=== PATIENT | male | born 1945 | race Caucasian/White ===

== ENCOUNTER 2021-03-28 14:21 | Outpatient (CLI) | payer MEDICARE, OTHER, SELFPAY ==
[2021-03-28 15:03] LABS: Alanine Aminotransferase 29 U/L (4-50); Albumin Level 4.4 g/dL (3.5-5.1); Alkaline Phosphatase 71 U/L (38-126); Anion Gap 8 mmol/L (8-16); Aspartate Amino Transferase 29 U/L (17-59); Bilirubin,Total 0.3 mg/dL (0.2-1.3); Blood Urea Nitrogen 30 mg/dL (9-20); Calcium 9.8 mg/dL (8.4-10.2); Carbon Dioxide 22 mmol/L (22-30); Chloride 109 mmol/L (98-107); Estimated Glomerular Filt Rate 37; Glucose 101 mg/dL (75-110); Potassium 4.3 mmol/L (3.4-5.0); Sodium 139 mmol/L (137-145)
[2021-03-28 15:05] LABS: Hemoglobin A1C 5.2 % (<5.7)
== END 2021-03-28 14:22 | disposition home or self-care (01) ==
LOC: ANHLAB 14:25
PROVIDERS: PCP Family Medicine; Visit Provider Physician Assistant
DX: I12.9 Hypertensive chronic kidney disease with stage 1 through stage 4 chronic kidney disease, or unspecified chronic kidney disease (principal); R73.01 Impaired fasting glucose
CPT/HCPCS: 36415; 80053; 83036

== ENCOUNTER 2021-05-05 11:11 | Outpatient (CLI) | payer MEDICARE, OTHER, SELFPAY ==
[2021-05-05 12:17] LABS: Creatinine Urine 36.1 mg/dL; Total Protein Urine Random 111 mg/dL; Ur Ttl Prot Creatinine Ratio 3.07 mg/mg (0-0.20)
[2021-05-05 14:04] LABS: Albumin Level 4.5 g/dL (3.5-5.1); Anion Gap 13 mmol/L (8-16); Blood Urea Nitrogen 31 mg/dL (9-20); Carbon Dioxide 17 mmol/L (22-30); Chloride 108 mmol/L (98-107); Estimated Glomerular Filt Rate 37; Glucose 114 mg/dL (75-110); Potassium 4.6 mmol/L (3.4-5.0); Sodium 138 mmol/L (137-145)
== END 2021-05-05 11:12 | disposition home or self-care (01) ==
PROVIDERS: PCP Family Medicine; Visit Provider Internal Medicine Nephrology
DX: N18.31 Chronic kidney disease, stage 3a (principal); I12.9 Hypertensive chronic kidney disease with stage 1 through stage 4 chronic kidney disease, or unspecified chronic kidney disease
CPT/HCPCS: 36415; 80069; 82570; 84156

== ENCOUNTER 2021-07-18 14:00 | Inpatient (IN) | payer MEDICARE, OTHER, SELFPAY ==
[2021-07-18] VITALS (7 sets, daily range): BP systolic 150–178; BP diastolic 93–111; PULSE 69–92; RESP 18–22; TEMP 36.1–36.6; O2SAT 95–98
--- NOTE | ~2021-07-18 | CT_ITS ---
EXAMINATION: CT lumbar spine wo con DATE: 07/18/2021 15:04 INDICATION: Lower extremity weakness. TECHNIQUE: Computed tomography (CT) of the lumbar spine was performed without intravenous contrast. A utomated exposure control and iterative reconstruction technique were employed. The dose-length produ ct was 1251.78 mGy-cm. COMPARISON: CT abdomen and pelvis 08/22/2013 FINDINGS: There are chronic bilateral L5 pars defects. There is 6 mm anterolisthesis of L5 on S1. The re are Schmorl's nodes at most levels. There is mild chronic anterior wedging of L1-L1 vertebral bodi es. There is moderately decreased disc height at L3-L4 and severely decreased disc height at L5-S1 wi th endplate remodeling. There are chronic masses in the adrenal glands measuring up to 1.9 cm on the right measuring low-attenuation, consistent with adenomas. There is at least mild atrophy of left kid yash. There is a bladder diverticulum. The following disc levels are specifically discussed: L1-L2: The disc does not extend beyond the endplate margin. There is severe bilateral facet joint ost eoarthritis. There is no neural foraminal stenosis. There is no central canal stenosis. L2-L3: The disc is bulging. There is severe right and moderate left facet joint osteoarthritis. There is mild bilateral neural foraminal stenosis. There is mild central canal stenosis. L3-L4: The disc is bulging. There is moderate bilateral facet joint osteoarthritis. There is mild geri ateral neural foraminal stenosis. There is mild central canal stenosis. L4-L5: The disc is bulging. There is severe bilateral facet joint osteoarthritis. There is mild bilat eral neural foraminal stenosis. There is mild central canal stenosis. L5-S1: The disc is bulging. There is severe bilateral facet joint osteoarthritis. There is mild bilat eral neural foraminal stenosis. There is no central canal stenosis. IMPRESSION: 1. Severe lumbar spondylosis. 2. Chronic bilateral L5 pars defects with grade 1 anterolisthesis of L5 on S1. Reviewed, dictated and finalized at location A.
--- NOTE | ~2021-07-18 | XR_ITS ---
EXAMINATION: XR chest 1V portable DATE: 07/18/2021 14:32 INDICATION: Weakness. TECHNIQUE: A single frontal view of the chest was obtained. COMPARISON: Chest single view 07/24/2019, CT abdomen and pelvis 08/22/2013 FINDINGS: The chest demonstrates clear lungs without pneumonia, pleural effusion, or pneumothorax. Th e heart size is normal. IMPRESSION: 1. No acute cardiopulmonary disease. Reviewed, dictated and finalized at location A.
--- NOTE | ~2021-07-18 | US_ITS ---
EXAMINATION: US carotid duplex BI DATE: 07/19/2021 14:03 INDICATION: Syncope TECHNIQUE: Grayscale, color Doppler, and pulsed Doppler images of the cervical carotid arteries were obtained. The degree of vessel stenosis is placed in one of the following categories: normal, <50%, 5 0-69%, >=70% but less than near-occlusion, near-occlusion, or total occlusion. Note that percent sten osis relative to normal distal artery lumen diameter is indirectly measured from velocity measurement s as described by Eduardo, et al. Radiology 2003; 229:340-346. COMPARISON: None. FINDINGS: RIGHT: The right common carotid artery (CCA) peak systolic velocity (PSV) is 76 cm/s. The right internal car otid artery (ICA) PSV is 87 cm/s. The right ICA end-diastolic velocity (EDV) is 22 cm/s. The right IC A/CCA PSV ratio is 1.1. Grayscale and color Doppler images yield an estimate of <50% diameter reducti on from plaque in the ICA. The external carotid artery (ECA) PSV is 76 cm/s. There is antegrade flow in the right vertebral artery. LEFT: The left CCA PSV is 94 cm/s. The left ICA PSV is 80 cm/s. The left ICA EDV is 22 cm/s. The left ICA/C CA PSV ratio is 0.8. Grayscale and color Doppler images yield an estimate of <50% diameter reduction from plaque in the ICA. The ECA PSV is 93 cm/s. There is antegrade flow in the left vertebral artery. IMPRESSION: 1. <50% stenosis in the right internal carotid artery. 2. <50% stenosis in the left internal carotid artery. Reviewed, dictated and finalized at location A.
--- NOTE | ~2021-07-18 | CT_ITS ---
EXAMINATION: CT brain wo con DATE: 07/18/2021 15:04 INDICATION: Lower extremity paresis. Balance issues. TECHNIQUE: Computed tomography (CT) of the head was performed without intravenous contrast. The mA wa s adjusted according to patient size. Iterative reconstruction technique was employed. Exam dose: 68 1.00 mGy-cm total exam DLP. COMPARISON: 07/24/2019 CT brain FINDINGS: Prominent bilateral vertebral artery calcification, basilar artery calcification and promin ent bilateral carotid siphon internal carotid artery calcifications. There is nonspecific diminished attenuation of the cerebral white matter, likely due to chronic small vessel ischemic change. Again noted is prominence of the ventricles, particularly at third and lateral ventricles, not signif icant change since 07/24/2019. Differential diagnosis includes normal pressure hydrocephalus (ataxia/ga it disturbance, dementia, urinary continence) versus central atrophy. There is prominence of the shahzad ical sulci consistent with cortical cerebral atrophy. There is moderate cerebellar atrophy as well. No intracranial mass lesion or hemorrhage or recent cerebrovascular accident is evident. No midline s hift or mass effect effect. No subdural or epidural hematoma. No fracture or bone destruction of the cranial vault. Included paranasal sinuses and mastoid air cell s are normally developed and aerated. IMPRESSION: Chronic prominent size of ventricles; differential diagnosis includes normal pressure hy drocephalus (which might explain the clinical complaint of balance issues) versus central atrophy Reviewed, dictated and finalized at Location A. Reviewed, dictated and finalized at location A. IMPRESSION: Chronic prominent size of ventricles; differential diagnosis inclu henrietta normal pressure hydrocephalus (which might explain the clinical complaint o f balance issues) versus central atrophy
--- NOTE | 2021-07-18 14:12 | ECG_ITS ---
Measurements Intervals [place] Rate: 80 P: 31 WV: 188 QRS: -39 QRSD: 99 T: 55 QT: 391 QTc: 451 Interpretive Statements SINUS RHYTHM FREQUENT VENTRICULAR PREMATURE COMPLEXES LEFT AXIS DEVIATION LOW QRS VOLTAGE IN PRECORDIAL LEADS INCOMPLETE RIGHT BUNDLE BRANCH BLOCK VOLTAGE CRITERIA FOR LVH POOR R WAVE PROGRESSION, ANTERIOR LEADS BORDERLINE ST-T WAVE ABNORMALITY- HIGH LATERAL LEADS BASELINE ARTIFACT- I, II, III, AVR, AVL, AVF ABNORMAL ECG Electronically Signed On 07-18-2021 14:27:44 CDT by Eduardo Andrea D.O.
--- NOTE | 2021-07-18 14:14 | PC.NURSE ---
pt reports having 3-4 beers today at approx 1200.
[2021-07-18 14:32] LABS: Basophils Percent Auto 0.4 % (0.2-1.2); Eosinophils Absolute Auto 0.1 K/mm3 (0-0.3); Eosinophils Percent Auto 1.2 % (0-4.4); Hematocrit 41.5 % (42.0-52.0); Hemoglobin 14.2 g/dL (14.0-18.0); Immature Granulocyte Absolute 0.16 K/mm3 (0.00-0.031); Immature Granulocyte Percent A 1.5 % (0-0.5); Lymphocytes Absolute Auto 0.88 K/mm3 (0.9-3.2); Lymphocytes Percent Auto 8.2 % (18.3-44.2); Mean Corpuscular HGB Conc 34.2 g/dl (32-36); Mean Corpuscular Hemoglobin 32.6 pg (26-34); Mean Corpuscular Volume 95.4 fl (80-100); Mean Platelet Volume 9.5 fl (7.4-10.4); Monocytes Absolute Auto 1.1 K/mm3 (0.1-0.6); Monocytes Percent Auto 9.8 % (2.6-8.5); Neutrophils Absolute Auto 8.5 K/mm3 (1.3-6.7); Neutrophils Percent Auto 78.9 % (45.5-73.1); Platelet Count Result 221 k/mm3 (150-375); Red Blood Count 4.35 M/mm3 (4.6-6.20); Red Cell Distribution Width 11.9 % (11.5-14.5); White Blood Count 10.7 K/mm3 (4.5-10.0)
[2021-07-18 14:39] LABS: Alanine Aminotransferase 30 U/L (4-50); Albumin Level 4.1 g/dL (3.5-5.1); Alkaline Phosphatase 74 U/L (38-126); Anion Gap 14 mmol/L (8-16); Aspartate Amino Transferase 29 U/L (17-59); Bilirubin,Total 0.2 mg/dL (0.2-1.3); Blood Urea Nitrogen 20 mg/dL (9-20); Calcium 8.9 mg/dL (8.4-10.2); Carbon Dioxide 18 mmol/L (22-30); Chloride 93 mmol/L (98-107); Estimated CRCL calculation 40 ml/min; Estimated Glomerular Filt Rate 37; Glucose 107 mg/dL (65-110); Sodium 125 mmol/L (137-145)
[2021-07-18 14:40] LABS: Ethanol 149 mg/dL (<10)
--- NOTE | 2021-07-18 14:49 | ED.WEAKNESS ---
HPI - Weakness General Chief complaint: Weakness Stated complaint: Unable to ambulate Time Seen by Provider: 07/18/21 14:32 Source: patient Mode of arrival: EMS Limitations: no limitations History of Present Illness HPI Narrative: This is a 76 year old male that presents to the ER for generalized weakness. Began this morning around 11:00AM. He went to have coffee with his friends. All the sudden he felt as if he was not able to walk. No injuries or trauma. Denies fever, chest pain, shortness of breath, abdominal pain, vomiting, dysuria, saddle anesthesia or bowel/bladder incontinence. Related Data Home Medications Medication Instructions Recorded Confirmed aspirin 81 mg tablet,delayed 81 mg PO DAILY 11/03/19 07/18/21 release Allergies Allergy/AdvReac Type Severity Reaction Status Date / Time celecoxib Allergy Severe TONGUE Verified 07/18/21 18:25 SWELLED amlodipine Allergy Unknown Edema Verified 07/18/21 18:25 Penicillins Allergy Unknown UNKNOWN Verified 07/18/21 18:25 Sulfa (Sulfonamide Allergy Unknown UNKNOWN Verified 07/18/21 18:25 Antibiotics) Review of Systems Review of Systems: CONSTITUTIONAL: Denies fever CARDIOVASCULAR: Denies chest pain RESPIRATORY: Denies dyspnea. GASTROINTESTINAL: Denies abdominal pain, nausea, vomiting GENITOURINARY: Denies dysuria MUSCULOSKELETAL: Denies back pain, joint pain, or myalgia. NEUROLOGIC: Reports weakness. Denies numbness All systems reviewed & are unremarkable except as noted in HPI and below PMFSH Past Medical History Medical History Cervical disc disease with myelopathy CKD (chronic kidney disease) Essential hypertension H/O adenomatous polyp of colon Hypertensive chronic kidney disease with stage 1 through stage 4 chronic kidney disease, or unspecified chronic kidney disease Iron deficiency anemia Neuropathy Prostate cancer Unsteady gait Wellness examination Family History Family History Father Carcinoma of colon Social History Social History (Updated 07/17/21 @ 08:52 by Kenzie Johnson) Years smoked: 5 Smoking status: Former smoker Tobacco type: cigarettes Second hand tobacco smoke exposure: Yes Smoking end date: 11/22/69 Alcohol intake: current Drinks per week: 15 Substance use: never Substance use type: does not use Gender identity (if verbalized by the patient): Male Sexual Orientation (if Verbalized by the Patient): Straight or Heterosexual Spiritual care concerns: Yes (recent loss of ) Exam Narrative: GENERAL: Well-appearing, well-nourished, and in no acute distress. HEAD: Normocephalic, atraumatic. EYES: PERRLA and EOMI. ENT: Nares clear, no rhinorrhea or epistaxis. Mucous membranes moist. Oropharynx without tonsillar hypertrophy exudate or other lesions. Bilateral TMs pearly ayon non-bulging NECK: Supple. No adenopathy or masses. CHEST: Clear to auscultation. No respiratory distress. No wheezes rales or rhonchi HEART: Regular rate and rhythm. No murmur heard. Normal peripheral pulses. ABDOMEN: Soft, nontender, nondistended, normal active bowel sounds. EXTREMITIES: Normal range of motion. Mild symmetric edema noted to the bilateral lower extremities. Strength equal in bilateral upper extremities (5/5). Strength equal in bilateral lower extremities (4/5) SKIN: Warm, dry, no rash. NEURO: No focal deficits. Alert and oriented x3. Cranial nerves II through XII grossly intact PSYCH: Normal mood and affect Course Consultations Consultation #1: Spoke with hospitalist about patient and work-up who accepts admission Date: 07/18/21 Vital Signs Vital signs: Vital Signs Temperature 97.9 F 07/18/21 14:09 Pulse Rate 81 07/18/21 14:09 Respiratory Rate 18 07/18/21 14:09 Pulse Oximetry 95 07/18/21 14:09 Temperature 97.8 F 07/18/21 17:49 Pulse Rate 69 07/18/21 17:49 Respiratory Rat
[2021-07-18] MEDS: SODIUM CHLORIDE 0.9% IV 1,000 ML 999 ML IV CONT (15:47)
[2021-07-18 15:54] LABS: Add Urine Microscopic? YES; Appearance Urine Clear (Clear); Bilirubin Urine Negative (Negative); Blood Urine 1+ (Negative); Color Urine Straw (Yellow); Glucose Urine UA Negative (Negative); Ketones Urine Negative (Negative); Leukocyte Esterase Ur Negative LEU/UL (Negative); Nitrate Urine Negative (Negative); Protein Urine 2+ mg/dL (Negative); RBC Urine 0-2 /hpf (0-2); Specific Grav Ur 1.006 (1.001-1.035); Urobilinogen Urine Negative mg/dL (<2.0); WBC Urine 0-3 /hpf
[2021-07-18 16:13] LABS: Amphetamine Screen Urine Negative (Negative); Barbiturate Screen Urine Negative (Negative); Benzodiazepines Screen Urine Negative (Negative); Cannabinoid Screen Urine Negative (Negative); Cocaine Screen Urine Negative (Negative); Methadone Screen Urine Negative (Negative); Opiate Screen Urine Negative (Negative); Phencyclidine Screen Urine Negative (Negative)
[2021-07-18 16:42] LABS: Partial Thromboplastin Time 24.4 SECONDS (22.3-36.8); Prothrombin Time 12.6 Seconds (11.1-14.7)
[2021-07-18 16:43] LABS: Lipase 144 U/L (23-300)
--- NOTE | 2021-07-18 17:36 | ADMGEN ---
This patient, Kyree Corona, was admitted to Medical Room 257-01. Patient/family oriented to hospital policies and general routines including ID bracelet, bed and alarms, visiting hours, pain management, procedures, bathroom and other care routines, personal items, smoking policy, room service/diet, and visiting hours. Information on how to activate the Rapid Response Team has been discussed. Patient/Family are encouraged to report perceived risks to care and to ask questions if they do not understand what they are told or what they should do.
[2021-07-18] MEDS: hydrALAZINE HCL 20 MG/ML VIAL 10 MG IV PUSH (18:57)
--- NOTE | 2021-07-18 21:32 | PM.IMHP ---
H&P: HPI History of Present Illness Date/Time: 07/18/21 21:32Thidaylin is a 76-year-old male patient who presented to the emergency room today with some complaints of generalized weakness. The patient stated it began this morning around 11:00 a.m.. The patient stated this occurred when he was drinking coffee with his friends. After the patient was noted to have a elevated alcohol level. The patient admitted that he had several beers this morning. The patient states that he does not drink every day but when he has company he does drink beer. The patient stated that all of a sudden he could not walk today. He had no injuries or trauma. The patient's sodium level was 125. His creatinine was 1.8 which is at his baseline. His estimated GFR is 37 which is his baseline as well. His ethyl alcohol level was noted to be 149. The patient was given IV fluids and has been eating and drinking okay. The patient denies any dizziness or any nausea vomiting. He denies any fever chills. Patient stated he had not taken any of his blood pressure medication today and his blood pressure was elevated so I ordered him hydralazine. The patient stated since he is admitted to the hospital a walk to the bathroom a couple times without any problems anything eating and drinking without difficulty. The patient is being admitted to inpatient services on the date of service 07/18/2021. Chief Complaint: Weakness Review of Systems Review of Systems: All systems reviewed & are unremarkable except as noted in HPI and below Constitutional: Constitutional: Reports as per HPI and Reports no additional constitutional complaints Eyes: Eyes: Reports as per HPI and Reports no additional eye complaints ENT: Reports system reviewed and no additional complaints, except as documented and Reports Normal hearing present Cardiovascular: Cardiovascular: Reports no additional cardiovascular complaints Respiratory: Respiratory: Reports no additional respiratory complaints and Reports no additional respiratory complaints Gastrointestinal: Gastrointestinal: Reports as per HPI and Reports no additional gastrointestinal complaints Musculoskeletal: Musculoskeletal: Reports no additional musculoskeletal complaints Integumentary/Breasts: Skin/Breast: Reports system reviewed and no additional complaints, except as docu and Reports as per HPI Neurologic: Reports system reviewed and no additional complaints, except as documented, Reports as per HPI and Reports Normal hearing present Psychiatric: Psychiatric: Reports no additional psychiatric complaints and Reports as per HPI Endocrine: Endocrine: Reports no additional endocrine complaints Hematologic/Lymphatic: Hematologic/Lymphatic: Reports no additional hematologic/lymphatic complaints Allergic/Immunologic: Allergic/Immunologic: Reports no additional allergic/immunologic complaints PMFSH Past Medical History Medical History Cervical disc disease with myelopathy CKD (chronic kidney disease) Essential hypertension H/O adenomatous polyp of colon Hypertensive chronic kidney disease with stage 1 through stage 4 chronic kidney disease, or unspecified chronic kidney disease Iron deficiency anemia Neuropathy Prostate cancer Unsteady gait Wellness examination Surgical History Surgical History (Updated 07/18/21 @ 21:35 by Cyndy Venegas NP) History of bilateral knee replacement Family History Family History Father Carcinoma of colon Social History Social History (Updated 07/18/21 @ 21:37 by Cyndy Venegas NP) Social History: the patient recently became . He lives home alone. He does not have any children. The patient stated that he has not smoked in over 50 years. He does not use any marijuana or illicit drugs. The patient stated that he does not typically drink beer but if he has company he will drink beer a
[2021-07-18] MEDS: VERAPAMIL HCL ER 240 MG TABLET.ER 480 MG PO (22:25)
[2021-07-18] MEDS: LOSARTAN POTASSIUM 100 MG TABLET PO (22:25)
[2021-07-18] MEDS: ACETAMINOPHEN 500 MG TABLET 1000 MG PO (22:26)
[2021-07-18 22:45] LABS: Urine Cotinine NEGATIVE
[2021-07-18 23:10] LABS: Anion Gap 8 mmol/L (8-16); Blood Urea Nitrogen 25 mg/dL (9-20); Calcium 8.8 mg/dL (8.4-10.2); Carbon Dioxide 21 mmol/L (22-30); Chloride 103 mmol/L (98-107); Estimated CRCL calculation 40 ml/min; Estimated Glomerular Filt Rate 37; Glucose 121 mg/dL (65-110); Sodium 132 mmol/L (137-145)
[2021-07-18 23:13] LABS: Sodium Urine Random 26 meq/L
[2021-07-19] VITALS (9 sets, daily range): BP systolic 134–177; BP diastolic 78–93; PULSE 63–83; RESP 16–20; TEMP 36–36.6; O2SAT 95–98
[2021-07-19 06:02] LABS: Basophils Absolute Auto 0.1 K/mm3 (0.0-0.1); Basophils Percent Auto 0.6 % (0.2-1.2); Eosinophils Absolute Auto 0.2 K/mm3 (0-0.3); Eosinophils Percent Auto 1.9 % (0-4.4); Hematocrit 39.7 % (42.0-52.0); Hemoglobin 13.6 g/dL (14.0-18.0); Immature Granulocyte Absolute 0.08 K/mm3 (0.00-0.031); Immature Granulocyte Percent A 0.9 % (0-0.5); Lymphocytes Absolute Auto 1.12 K/mm3 (0.9-3.2); Mean Corpuscular HGB Conc 34.3 g/dl (32-36); Mean Corpuscular Hemoglobin 32.6 pg (26-34); Mean Corpuscular Volume 95.2 fl (80-100); Mean Platelet Volume 9.8 fl (7.4-10.4); Monocytes Absolute Auto 1.2 K/mm3 (0.1-0.6); Neutrophils Percent Auto 69.6 % (45.5-73.1); Platelet Count Result 217 k/mm3 (150-375); Red Blood Count 4.17 M/mm3 (4.6-6.20); White Blood Count 8.6 K/mm3 (4.5-10.0)
[2021-07-19 06:09] LABS: Alanine Aminotransferase 27 U/L (4-50); Albumin Level 3.6 g/dL (3.5-5.1); Alkaline Phosphatase 64 U/L (38-126); Anion Gap 6 mmol/L (8-16); Aspartate Amino Transferase 27 U/L (17-59); Bilirubin,Total 0.7 mg/dL (0.2-1.3); Blood Urea Nitrogen 25 mg/dL (9-20); Calcium 8.8 mg/dL (8.4-10.2); Carbon Dioxide 22 mmol/L (22-30); Chloride 105 mmol/L (98-107); Estimated CRCL calculation 40 ml/min; Estimated Glomerular Filt Rate 37; Glucose 84 mg/dL (65-110); Magnesium 1.7 mg/dL (1.6-2.3); Potassium 3.9 mmol/L (3.4-5.0); Sodium 133 mmol/L (137-145)
[2021-07-19 06:11] LABS: Lactic Acid Reflex 0.7 mmol/L (0.7-2.1)
[2021-07-19] MEDS: ASPIRIN 81 MG ENTERIC TABLET PO (08:34)
[2021-07-19] MEDS: FERROUS SULFATE 324 MG TABLET BY MOUTH ×2 (08:34→16:27)
[2021-07-19] MEDS: LOSARTAN POTASSIUM 100 MG TABLET PO (08:34)
--- NOTE | 2021-07-19 13:45 | PM.DS ---
DS: Admitting Diagnosis Admitting Diagnosis Near syncope, weakness and hyponatremia, alcoholic intoxication DS: Discharge Diagnosis Discharge Diagnosis (1) Acute hyponatremia: Code(s): E87.1 - Hypo-osmolality and hyponatremia Status: Acute Assessment and Plan: Hyponatremia likely related to alcohol use and poor dietary intake Hyponatremia improved from 125 to sodium now 133 I did check urine sodium and osmolarity. Patient is ambulating within his room in to and from the bathroom, without any difficulty PT and OT evaluation completed Electrolytes improved patient is eating and drinking without difficulty. get a L of fluids in the emergency room. No dizziness and no orthostatic hypotension. Near normal and able to be discharged home (2) Alcohol intoxication: Qualifiers: Complication of substance-induced condition: uncomplicated Qualified Code(s): F10.920 - Alcohol use, unspecified with intoxication, uncomplicated Code(s): F10.929 - Alcohol use, unspecified with intoxication, unspecified Status: Acute Assessment and Plan: Patient may be drinking more alcohol recently because his this year The patient is now walking and talking without difficulty. No complaints of headaches today, no DTs noted, no agitation or anxiety during our interview and examination Patient has been receiving treatment for depression and did have in his medical records a voluntary admission for suicidal thoughts last month Encouraged him to attend alcoholics anonymous meetings and I have attached in the discharge the towns that have those meetings for him to to attend Patient is currently now without any signs or symptoms of alcohol inebriation (3) Weakness: Code(s): R53.1 - Weakness Status: Acute Assessment and Plan: The patient is walking in the bathroom without difficulty. Patient is ambulating within his room in to and from the bathroom, without any difficulty PT and OT evaluation completed Electrolytes improved patient is eating and drinking without difficulty. get a L of fluids in the emergency room. No dizziness and no orthostatic hypotension. Resolved (4) Hydrocephalus, idiopathic normal pressure: Code(s): G91.2 - (Idiopathic) normal pressure hydrocephalus Status: Acute Assessment and Plan: This appears to be chronic. (5) Hypertensive chronic kidney disease with stage 1 through stage 4 chronic kidney disease, or unspecified chronic kidney disease: Code(s): I12.9 - Hypertensive chronic kidney disease with stage 1 through stage 4 chronic kidney disease, or unspecified chronic kidney disease Status: Acute Assessment and Plan: Appears to be stable and at his baseline. (6) Iron deficiency anemia: Code(s): D50.9 - Iron deficiency anemia, unspecified Status: Acute Assessment and Plan: Continue with his iron supplement Anemia controlled with a hemoglobin of 13.6 and hematocrit of 39.7 No interventions at this time Patient continues to eat well today (7) Prostate cancer: Code(s): C61 - Malignant neoplasm of prostate Status: Acute Assessment and Plan: patient stated he is monitored outpatient [facility] Continue to follow with his urologist once a year. (8) Essential hypertension: Code(s): I10 - Essential (primary) hypertension Status: Acute Assessment and Plan: Patient was given hydralazine at admission restarted on his home medications. That did not prove to control his blood pressure so he was started on metoprolol 25 mg b.i.d. Blood pressures rechecked and found to be improved Patient discharged on losartan and metoprolol and verapamil encouarged to start checking his own BPs and HRs at home and F/U with his PCP in 1-14 days DS: Summary Hospital Course Hospital Course: Patient was found with weakness and hyponatremia and alcoholic intoxication as well as ne
[2021-07-19 15:24] LABS: Ammonia < 9 umol/L (9-30)
[2021-07-19] MEDS: VERAPAMIL HCL ER 240 MG TABLET.ER 480 MG PO (15:49)
[2021-07-19] MEDS: METOPROLOL TARTRATE 25 MG TABLET PO (16:27)
[2021-07-22 04:56] LABS: Osmolality, Urine 175 mOsm/kg (50-1200)
== END 2021-07-19 18:45 | disposition home or self-care (01) | DRG 641 ==
LOC: ANHED 14:50 → ANH2MED 17:16
PROVIDERS: Emergency Medicine; Nurse Practitioner; Physician Assistant; Admitting Provider Hospitalist; Emergency Provider Emergency Medicine; PCP Family Medicine; Visit Provider Nurse Practitioner
DX: E87.1 Hypo-osmolality and hyponatremia (principal); M50.00 Cervical disc disorder with myelopathy, unspecified cervical region; G91.2 (Idiopathic) normal pressure hydrocephalus; F10.920 Alcohol use, unspecified with intoxication, uncomplicated; I12.9 Hypertensive chronic kidney disease with stage 1 through stage 4 chronic kidney disease, or unspecified chronic kidney disease; D50.9 Iron deficiency anemia, unspecified; G62.9 Polyneuropathy, unspecified; N18.9 Chronic kidney disease, unspecified; Z96.653 Presence of artificial knee joint, bilateral; Z85.46 Personal history of malignant neoplasm of prostate; Z87.891 Personal history of nicotine dependence
CPT/HCPCS: 36415; 70450; 71045; 72131; 80048; 80053; 80307; 81001; 82140; 82728; 83605; 83690; 83735; 83935; 84300; 84443; 85025; 85610; 85730; 93005; 93880; 96361; 97161; 97165; 99285; A9270; G0378; J0360; J7030

== ENCOUNTER 2021-07-22 10:40 | Outpatient (CLI) | payer MEDICARE, OTHER, SELFPAY ==
--- NOTE | ~2021-07-22 | XR_ITS ---
EXAMINATION: XR shoulder RT min 2V INDICATION: Right shoulder pain TECHNIQUE: Four views of the right shoulder are submitted. COMPARISON: None FINDINGS: Normal alignment. No fracture. There is mild osteoarthritis of the glenohumeral and acromio clavicular joints. Soft tissues are unremarkable. IMPRESSION: 1. Osteoarthritis without acute osseous abnormality. Reviewed, dictated and finalized at location A.
--- NOTE | ~2021-07-22 | XR_ITS ---
EXAMINATION: XR humerus RT INDICATION: Right-sided shoulder pain TECHNIQUE: Two views of the right humerus are obtained on three radiographs. COMPARISON: None available FINDINGS: Bone alignment is normal. There is an elbow joint effusion. No definite fracture is identif ied. The soft tissues are unremarkable. IMPRESSION: 1. Elbow joint effusion which could reflect occult fracture. Consider dedicated elbow radiographs if elbow pain is present. Reviewed, dictated and finalized at location A.
== END 2021-07-22 10:41 | disposition home or self-care (01) ==
PROVIDERS: PCP Family Medicine; Visit Provider Nurse Practitioner Family
DX: M25.511 Pain in right shoulder (principal); M79.601 Pain in right arm; M19.011 Primary osteoarthritis, right shoulder; M25.421 Effusion, right elbow
CPT/HCPCS: 73030; 73060

== ENCOUNTER 2021-08-10 09:06 | Outpatient (CLI) | payer MEDICARE, OTHER, SELFPAY ==
--- NOTE | ~2021-08-10 | MR_ITS ---
EXAMINATION: MR shoulder RT wo con DATE: 08/10/2021 10:39 INDICATION: Right shoulder pain. TECHNIQUE: Magnetic resonance imaging (MRI) of the right shoulder was performed without intravenous c ontrast. Sequences included axial PD-weighted FS FSE, coronal oblique PD-weighted FS FSE and T2-weigh radha FS FSE, and sagittal oblique T2-weighted FS FSE and T1-weighted FSE. COMPARISON: Right shoulder radiographs 07/22/2021 FINDINGS: Coracoacromial arch: The acromion undersurface is curved in morphology (type II). There is severe acromioclavicular joint osteoarthritis including inferior directed osteophytes. There is severe subacromial/subdeltoid bursit is. Rotator cuff: There is a full-thickness tear of supraspinatus and infraspinatus tendons measuring 4.5 cm anterior t o posterior by 5.4 cm proximal to distal. Teres minor tendon is normal. There is severe subscapularis tendinopathy with partial-thickness tears. There is no asymmetric fatty atrophy of the rotator cuff muscle bellies. There is edema in the deltoid muscle, consistent with mild (grade 1) strain. Biceps tendon and glenoid labrum: There is a complete tear of proximal biceps tendon. There is extensive tearing of the glenoid labrum. Fluid: There is a moderate-sized glenohumeral joint effusion. Bones/cartilage: There is deep partial thickness cartilage loss of posterior glenoid. There is partial-thickness carti vandana loss of humeral head. Osteophytes are noted. IMPRESSION: 1. Massive full-thickness rotator cuff tear. 2. Moderate glenohumeral joint chondrosis. 3. Moderate-sized glenohumeral joint effusion and severe subacromial/subdeltoid bursitis. 4. Complete tear of proximal biceps tendon. 5. Severe acromioclavicular joint osteoarthritis. 6. Mild deltoid muscle strain (grade 1). Reviewed, dictated and finalized at location A.
== END 2021-08-10 09:07 | disposition home or self-care (01) ==
PROVIDERS: PCP Family Medicine; Visit Provider Nurse Practitioner Family
DX: S49.90XA Unspecified injury of shoulder and upper arm, unspecified arm, initial encounter (principal); M75.121 Complete rotator cuff tear or rupture of right shoulder, not specified as traumatic; S46.211A Strain of muscle, fascia and tendon of other parts of biceps, right arm, initial encounter; M19.011 Primary osteoarthritis, right shoulder; M75.51 Bursitis of right shoulder; Z91.81 History of falling
CPT/HCPCS: 73221

== ENCOUNTER 2022-05-12 07:57 | Outpatient (CLI) | payer MEDICARE, OTHER, SELFPAY ==
[2022-05-12 09:08] LABS: Alanine Aminotransferase 24 U/L (6-50); Alkaline Phosphatase 91 U/L (38-126); Anion Gap 9 mmol/L (8-16); Aspartate Amino Transferase 24 U/L (17-59); Bilirubin,Total 0.5 mg/dL (0.2-1.3); Blood Urea Nitrogen 32 mg/dL (9-20); Carbon Dioxide 21 mmol/L (22-30); Chloride 106 mmol/L (98-107); Estimated Glomerular Filt Rate 31; Glucose 115 mg/dL (65-110); Potassium 4.4 mmol/L (3.4-5.0); Sodium 136 mmol/L (137-145)
[2022-05-12 09:16] LABS: Hematocrit 40.2 % (42.0-52.0); Hemoglobin 13.9 g/dL (14.0-18.0); Mean Corpuscular HGB Conc 34.6 g/dl (32-36); Mean Corpuscular Hemoglobin 31.9 pg (26-34); Mean Corpuscular Volume 92.2 fl (80-100); Mean Platelet Volume 9.6 fl (7.4-10.4); Platelet Count Result 264 k/mm3 (150-375); Red Blood Count 4.36 M/mm3 (4.6-6.20); Red Cell Distribution Width 11.8 % (11.5-14.5); White Blood Count 8.3 K/mm3 (4.5-10.0)
[2022-05-12 09:17] LABS: Hemoglobin A1C 5.2 % (<5.7)
== END 2022-05-12 07:58 | disposition home or self-care (01) ==
LOC: ANHLAB 08:12
PROVIDERS: PCP Family Medicine; Visit Provider Physician Assistant
DX: D50.9 Iron deficiency anemia, unspecified (principal); N18.9 Chronic kidney disease, unspecified; I12.9 Hypertensive chronic kidney disease with stage 1 through stage 4 chronic kidney disease, or unspecified chronic kidney disease; I10 Essential (primary) hypertension; R73.01 Impaired fasting glucose
CPT/HCPCS: 36415; 80053; 83036; 84443; 85027

== ENCOUNTER 2023-10-26 13:32 | Outpatient (CLI) | payer MEDICARE, OTHER, SELFPAY ==
--- NOTE | ~2023-10-26 | US_ITS ---
US renal BI 10/26/2023 17:28 Procedure: Realtime transabdominal ultrasound of the kidneys and bladder. Indication: Chronic kidney disease. Comparison: No prior studies for comparison. Findings: Renal echotexture is normal bilaterally without hydronephrosis, contour deforming mass or r enal calculus. There is a right renal cyst measuring 3.5 cm. There is a bladder diverticulum adjacent to the left UVJ. The right kidney measures 11.7 cm and left kidney measures 11.7 cm. Prevoid volume of the bladder is to 6 20 cc. Postvoid volume is 211 cc. Impression: 1: Right renal cyst measuring 3.5 cm. 2: Large post void residual. Bladder diverticulum present. Reviewed, dictated and finalized at location B. RETAILER Impression: 1: Right renal cyst measuring 3.5 cm. 2: Large post void residual. Bladder diverticulum present.
== END 2023-10-26 13:33 | disposition home or self-care (01) ==
LOC: ANHIMG 13:32
PROVIDERS: PCP Family Medicine; Visit Provider Internal Medicine Nephrology
DX: N28.1 Cyst of kidney, acquired (principal); N32.3 Diverticulum of bladder; I12.9 Hypertensive chronic kidney disease with stage 1 through stage 4 chronic kidney disease, or unspecified chronic kidney disease; N18.4 Chronic kidney disease, stage 4 (severe)
CPT/HCPCS: 76775

== ENCOUNTER 2025-01-31 14:53 | Outpatient (CLI) | payer MEDICARE, OTHER, SELFPAY ==
--- NOTE | ~2025-01-31 | XR_ITS ---
[id number] Ordering provider: Karissa Ramírez PA-C History: . M54.2 - Cervicalgia . Comparison: None. FINDINGS: VERTEBRAL BODIES: Minimal anterolisthesis at the level of C3-C4. Otherwise, Normal height and alignme nt. No visible fracture or subluxation. The dens is intact. DISK SPACES: Narrowing of the disc C3-C4, C4-C5 and C5-C6 and C6-C7. Multilevel uncovertebral joint o steoarthritic changes. Multilevel facet joint disease. PARASPINOUS SOFT TISSUES: No prevertebral soft tissue swelling. IMPRESSION: No acute osseous abnormality cervical spine. Minimal anterolisthesis at the level of C3-C4. Multilevel degenerative disc disease with multilevel facet joint disease and uncovertebral joint oste oarthritic changes. Reviewed, dictated and finalized at location A. IMPRESSION: No acute osseous abnormality cervical spine. Minimal anterolisthesis at the level of C3-C4. Multilevel degenerative disc disease with multilevel facet joint disease and un covertebral joint osteoarthritic changes.
== END 2025-01-31 14:54 | disposition home or self-care (01) ==
PROVIDERS: PCP Family Medicine; Visit Provider Physician Assistant Medical
DX: M50.31 Other cervical disc degeneration, high cervical region (principal); M50.323 Other cervical disc degeneration at C6-C7 level; M50.321 Other cervical disc degeneration at C4-C5 level; M50.322 Other cervical disc degeneration at C5-C6 level
CPT/HCPCS: 72040

== ENCOUNTER 2025-02-01 17:09 | Inpatient (IN) | payer MEDICARE, OTHER, SELFPAY ==
--- NOTE | ~2025-02-01 | XR_ITS ---
XR chest 1V portable Ordering provider: Madalyn Kramer APRN History: 79 years Male with . shortness of breath . Comparison: July 18, 2021 FINDINGS: MEDIASTINUM: The cardiac silhouette is slightly enlarged. Congestive jeri. LUNGS: No effusions or pneumothorax. Bilateral interstitial thickening suggestive of pneumonitis. Pul monary edema is not excluded although less likely. OTHER: No free air under the diaphragm. Degenerative changes of the spine. IMPRESSION: Pneumonitis seen bilaterally. Pulmonary edema is not excluded. Reviewed, dictated and finalized at location A.
--- NOTE | 2025-02-01 17:15 | ADMGEN ---
This patient, Kyree Corona, was admitted to IMU Room 200-01. Patient/family oriented to hospital policies and general routines including ID bracelet, bed and alarms, visiting hours, pain management, procedures, bathroom and other care routines, personal items, smoking policy, room service/diet, and visiting hours. Information on how to activate the Rapid Response Team has been discussed. Patient/Family are encouraged to report perceived risks to care and to ask questions if they do not understand what they are told or what they should do. Report received from RICARDO Paez from [facility] ED @ 1550. Patient arrived via stretcher with [facility] staff without issue. Madalyn SAMSON notified of patient arrival.
[2025-02-01 17:19] VITALS: BMI 31.8
[2025-02-01 17:20] VITALS: BP 180/81; PULSE 77; RESP 24; TEMP 36.9; O2SAT 97
[2025-02-01 17:30] VITALS: BP 180/81; PULSE 77; RESP 24; TEMP 36.9; O2SAT 95; O2SAT 97
--- OUTSIDE RECORDS SUMMARY | 2025-02-01 17:40 | XMS_ITS | Encounter Summary ---
Author Organization [facility] Address [facility] [place] [address] Care Team Providers Care Automatic Folder Seamer Name Role Phone Oscar Abarca MD Primary Care Provider [phone] Reason for Visit * Reason Comments Weakness Encounter Details Date Type Department Care Team (Late st Contact Info) Description 02/01/2025 6:35 AM CDT - 02/01/2025 4:33 PM CDT Emergency [facility] Emergency Room [address] [place] [address] John Whitney MD [address] [place] [id number] Katherin Joel MD [address] [place] [id number] Weakness Discharge Disposition: Another Health Care Institution Not Defined Social History Tobacco Use Types Packs/Day Years Used Date Smoking Tobacco: Former Cigarettes Smokeless Tobacco: Never Tobacco Cessation:Counseling Given: Not Answered Alcohol Use Standard Drinks/Week Comments Yes 0 (1 standard drink = 0.6 oz pur e alcohol) PHQ-2 Answer Date Recorded PHQ-2 Score - If the patient scores above 3, please move on to questions 3-9 0 10/22/2022 Sex and Gender Information Value Date Recorded Sex Assigned at Male 02/01/2025 6:45 AM CDT Legal Sex Male 5:50 PM CDT Gender Identity Male 07/21/2022 4:37 PM CDT Sexual Orientation Straight 02/01/2025 6: 45 AM CDT documented as of this encounter Last Filed Vital Signs Vital Sign Reading Time Taken Comments Blood Pressure 152/84 02/01/2025 1:43 PM CDT Pulse 78 02/01/2025 1:43 PM CDT Temperature 36.8 C (98.2 F) 02/01/2025 1:43 PM CDT Respiratory Rate 24 02/01/2025 1:43 PM CDT Oxygen Saturation 96% 02/01/2025 1:43 PM CDT Inhaled Oxygen Concentration - - Weight 108.9 kg (240 lb) 02/01/2025 6:37 AM CDT Height 180.3 cm (5' 11 ) 02/01/2025 6:37 AM CDT Body Mass Index 33.47 02/01/2025 6:37 AM CDT documented in this encounter Medications at Time of Discharge Ferrous Sulfate (IRON) 325 (65 Fe) MG tablet Take 1 tablet by mouth 2 (two) times daily. 05/10/2020 losartan 100 MG tablet Take 1 tablet (100 mg total) by mouth daily. 05/07/2020 verapamil ER (VERELAN PM) 240 MG 24 hr capsule 12/15/2022 verapamil SR 240 MG tablet Take 1 tablet (240 mg total) by mouth daily. 10/02/2019 documented as of this encounter Consult Notes * Sandra Smith MD - 02/01/2025 1:37 PM CDT Cardiology Consult History Reason for consult: Elevated troponin Rissa Hess is a 79-year-old male who presents with weakness. Patient has a past medical historysignificant for HTN, colon cancer (per patient untreated?), CKD stage IV. Patient denies prior cardiac issues. Notes this morning got out of bed and was too weak to go do anything, so called EMS. Pale, which patient states his PCP noted earlier this week, but no active issues with blood loss, melena. Notes 2 days ago had some CP, R upper chest to R shoulder, but none since. No palps. Here in ED noted to have Hgb of 5, GFR of 13, BUN of 75. Trop of 311->[place] [address]. Asked to comment on troponin, symptoms by Dr. Joel. EKG personally reviewed - sinus with possible anteriorMI Past Medical History: Diagnosis Date Hypertension Past Surgical History: Procedure Laterality Date JOINT REPLACEMENT Social History Tobacco Use Smoking status: Former Types: Cigarettes Smokeless tobacco: Never Vaping Use Vaping status: Never Used Substance Use Topics Alcohol use: Yes Drug use: Never Family History Problem Relation Name Age of Onset Hypertension Mother Stroke Mother Hypertension Father Diabetes Brother sodium chloride 100 mL (02/01/25 1023) Prior to Admission medications Medication Sig Start Date End Date Taking? Authorizing Provider Ferrous Sulfate (IRON) 325 (65 Fe) MG tablet Take 1 tablet by mouth 2 (two) times daily. 05/10/20 [facility] losartan 100 MG tablet Take 1 tablet (100 mg total) by mouth daily. 05/07/20 [facility] verapamil ER (VERELAN PM) 240 MG 24 hr capsule 12/15/22 Default History Genericprovider verapamil SR 240 MG tablet Take 1 tablet (240 mg total) by mouth daily. 10/02/19 [facility] Allergies Allergen Reactions Penicillins Anaphylaxis Celecoxib Unknown Sulfa Antibiotics Unknown Review of Systems Constitutional: Positive for malaise/fatigue. Negative for chills and fever. HENT: Negative for ear pain, sore throat and tinnitus. Eyes: Negative for blurred vision and pain. Respiratory: Positive for shortness of breath. Negative for cough and hemoptysis. Cardiovascular: Positive for chest pain. Gastrointestinal: Negative for diarrhea, melena, nausea and vomiting. Genitourinary: Negative for dysuria and hematuria. Musculoskeletal: Negative for neck pain. Skin: Negative for rash. Neurological: Negative for speech change, seizures and headaches. Endo/Heme/Allergies: Negative for polydipsia. Does not bruise/bleed easily. Psychiatric/Behavioral: Negative for memory loss. The patient does not have insomnia. Physical Exam Filed Vitals: 02/01/25 1008 02/01/25 1029 02/01/25 1159 02/01/25 1230 BP: 133/70 138/78 (!) 160/76 (!) 163/96 Pulse: 77 80 76 75 Resp: Temp: 98.3 ??F (36.8 ??C) 98 ??F (36.7 ??C) 97.7 ??F (36.5 ??C) 97.9 ??F (36.6 ??C) TempSrc: Temporal Temporal Temporal SpO2: 95% 98% 96% Weight: Height: Physical Exam: Physical Exam Vitals reviewed. Constitutional: General: Rissa is not in acute distress. Appearance: Rissa is well-developed. Rissa is ill-appearing. HENT: Head: Normocephalic and atraumatic. Nose: No mucosal edema. Neck: Vascular: No JVD. Cardiovascular: Rate and Rhythm: Normal rate and regular rhythm. Chest Wall: PMI is not displaced. Heart sounds: S1 normal and S2 normal. Murmur heard. Pulmonary: Effort: Pulmonary effort is normal. No respiratory distress. Breath sounds: Normal breath sounds. Abdominal: General: There is no abdominal bruit. Palpations: There is no mass. Tenderness: There is no abdominal tenderness. Musculoskeletal: General: No deformity. Normal range of motion. Cervical back: Neck supple. Skin: General: Skin is warm and dry. Coloration: Skin is pale. Neurological: Mental Status: Rissa is alert and oriented to person, place, and time. Psychiatric: Behavior: Behavior normal. Thought Content: Thought content normal. Recent Labs Lab 02/01/25 0641 WBC 15.05* HGB 5.2* HCT 18.3* MCV 70.7* PLT 309 Recent Labs Lab 02/01/25 0641 NA 141 K 4.6 CL 108 CO2 17.2* AGAP 15.8* BUN 75* CR 4.36* BUNCREATININ 17.2 GLU 145* CA 9.4 TP 6.5 ALB 3.6 TBIL 0.4 ALKP 68 AST 11* ALT 15* No results for input(s): APTT , INR , PTT in the last 168 hours. Recent Labs Lab 02/01/25 0641 NA 141 K 4.6 CL 108 CO2 17.2* BUN 75* CR 4.36* CA 9.4 GLU 145* AGAP 15.8* TP 6.5 ALB 3.6 ALT 15* WBC 15.05* HGB 5.2* PLT 309 No results found for this visit on 02/01/25 (from the past 52 weeks). No results found for this visit on 02/01/25 (from the past 52 weeks). Recent Labs Lab 02/01/25 0641 02/01/25 0850 TROP 311* 336* EKG: Results for orders placed or performed during the hospital encounter of 02/01/25 ECG [address] 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1945 Requested By: JOHN WHITNEY Order Number: [id number] Reading MD: Measurements Intervals [place] Rate: 78 P: 0 VT: 213 QRS: -6 QRSD: 96 T: 47 QT: 375 QTc: 427 Interpretive Statements SINUS RHYTHM WITH FIRST DEGREE AV BLOCK POSSIBLE RIGHT VENTRICULAR CONDUCTION DELAY [RSR (QR) IN V1/V2] POSSIBLE ANTERIOR MYOCARDIAL INFARCTION , OF INDETERMINATE AGE [30 ms Q WAVE IN V3/V4, OR R < 0.2 mV IN V4] Compared to ECG 06/17/2021 18:01:27 First degree AV block now present Myocardial infarct finding now present Left-axis deviation no longer present Incomplete right bundle-branch block no longer present Imaging: No results found. Assessment Active Problems: * No active hospital problems. * NSTEMI anemia Plan NSTEMI - probably demand, but difficult to say for sure. Given significant anemia, likely chronic bleed, would hold off on anticoag regardless given benign EKG and lack of active symptoms. Would get echo once admitted to a hospital bed. Anemia - given likely NIDA based on MCV/RDW I would assume GIB. Probably exacerbated by CKD. Will need colonoscopy. Given multiple med issues probably needs transfer. SANDRA SMITH MD documented in this encounter ED Notes * Katherin Joel MD - 02/01/2025 2:10 PM CDT Emergency Department Assumed Care Note Patient signed out to me by Dr. Whitney@0700 shift change. Briefly, Rissa Hess is a 79-year-old male is being evaluated for generalized weakness Vitals: 02/01/25 1343 BP: (!) 152/84 Pulse: 78 Resp: 24 Temp: 98.2 ??F (36.8 ??C) SpO2: 96% Thus far, studies reveal: A very low H&H of 5.6 and 18 Pending studies include: The rest of the labs are pending Plan from sign out is: Transfused patient with 2 units packed RBC Progress notes: Patient was transfused 2 units of packed red blood cells the repeat of the CBC after transfusion is pending. Patient will receive Lasix 40 mg IV. Patient also have abnormal CMP with aBUN and creatinine of 75 and 4.36 and this is nearly double what this had been 2 years ago. But patient has been seeing a child protective services social worker who stated that the patient had dwindling renal function. The cause of the dysfunction was not found. The rest the patient CMP was normal Patient had a white count of 15,000 etiology is unknown but patient's platelet count was normal Normal lab values revealed influenza and coronavirus are negative and a lactic acid that was normal. Urinalysis revealed 3+ protein which is consistent with patient's worsening renal function and trace blood. However patient had no infection there. Patient is EKG showed no acute changes but patient's initial troponin was 311 followed by a second troponin at 336. The third troponin is pending. I had Dr. Smith the gastroenterologist come down to see the patient and he noted that the patient had a lot of things going on but he stated that the increased troponin was probably secondary to demand ischemia especially since the patient was asymptomatic and showed no signs of change in his EKG. He didnot recommend anticoagulation for obvious reasons. He recommended that the patient should have an echocardiogram at this time. It was also noted that patient had an elevated BNP since patient was stable at this time it was recommended not to give him Lasix for the BNP but patient did receive Lasix after the blood transfusionbecause of his increased fluid load. Patient told me during his history that he did not tell the original doctor's that he was diagnosedwith colon cancer many years ago but stated that the GI specialist told him that it was so slow growing that he needed no treatment at that time. Patient does not remember the name of the physician and what the diagnosis was made. I was unable to find his in care everywhere or in patient's of the records. The cause of patient's low red cells could be due to this malignancy in the colon versus slow GI orupper GI bleed versus dwindling renal function. It may be a combination of them all. Patient's chest x-ray did not show any acute changes but revealed mild enlargement of the cardiac silhouette with some vascular congestion. This information was relayed to Madalyn who has accepted the patient for Dr. Ma. Patient's diagnoses are Anemia requiring transfusion Congestive heart failure Chronic renal failure/CKI Elevated troponin of unknown significance Colon cancer by history Results for orders placed or performed during the hospital encounter of 02/01/25 ECG [address] 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1945 Requested By: JOHN WHITNEY Order Number: [id number] Reading MD: Measurements Intervals [place] Rate: 78 P: 0 VT: 213 QRS: -6 QRSD: 96 T: 47 QT: 375 QTc: 427 Interpretive Statements SINUS RHYTHM WITH FIRST DEGREE AV BLOCK POSSIBLE RIGHT VENTRICULAR CONDUCTION DELAY [RSR (QR) IN V1/V2] POSSIBLE ANTERIOR MYOCARDIAL INFARCTION , OF INDETERMINATE AGE [30 ms Q WAVE IN V3/V4, OR R < 0.2 mV IN V4] Compared to ECG 06/17/2021 18:01:27 First degree AV block now present Myocardial infarct finding now present Left-axis deviation no longer present Incomplete right bundle-branch block no longer present Labs Reviewed CBC W/DIFF AUTOMATED - Abnormal; Notable for the following components: Result Value WBC 15.05 (*) RBC 2.59 (*) HGB 5.2 (*) HCT 18.3 (*) MCV 70.7 (*) MCH 20.1 (*) MCHC 28.4 (*) RDW 17.8 (*) MPV 9.0 (*) SEG NEUTROPHILS 95 (*) LYMPHOCYTES 3 (*) MONOCYTES 2 (*) ABS. NEUTROPHILS 14.30 (*) ABS. LYMPHOCYTES 0.45 (*) All other components within normal limits COMPREHENSIVE METABOLIC PANEL - Abnormal; Notable for the following components: GLUCOSE 145 (*) BUN 75 (*) CREATININE S/P/B 4.36 (*) CO2 17.2 (*) AST 11 (*) ALT 15 (*) ANION GAP 15.8 (*) GFR ESTIMATE 13 (*) All other components within normal limits TROPONIN, QUANT - Abnormal; Notable for the following components: TROPONIN I HIGH SENSITIVITY 311 (*) All other components within normal limits PRO-BRAIN NATRIURETIC PEPTIDE - Abnormal; Notable for the following components: PRO-B TYPE NATRIURETIC PEPTIDE 17,281 (*) All other components within normal limits URINALYSIS, AUTO, COMPLETE - Abnormal; Notable for the following components: PROTEIN RANDOM (U) 3+ (*) BLOOD (U) TRACE (*) All other components within normal limits TROPONIN, QUANT - Abnormal; Notable for the following components: TROPONIN I HIGH SENSITIVITY 336 (*) All other components within normal limits LACTIC ACID W REFLEX (SEPSIS) MAGNESIUM CBC W/DIFF AUTOMATED TYPE & SCREEN RBC UNITS CORONAVIRUS (COVID 19) INFLUENZA A & B XR CHEST PORTABLE Final Result by User, [id number] (02/02 732) [facility] [address] [facility] [place] [id number] Examination: XR CHEST PORTABLE Exam time: 02/01/2025 6:46 AM Clinical history: Shortness of breath and weakness since yesterday. Comparison: No prior Technique: AP upright view Findings: Multiple external wires and leads. There is mild enlargement of the cardiac silhouette and vascular congestion changes noted without evidence of focal atelectasis or infiltrate. No evidence of pleural effusion. IMPRESSION: Mild enlargement cardiac silhouette and vascular congestion. Referred By: Interpreted By: Alexandro Payne MD, 02/01/2025 7:26 AM Medical Decision Making Amount and/or Complexity of Data Reviewed Labs: ordered. Radiology: ordered. ECG/medicine tests: ordered. Risk Decision regarding hospitalization. Medications sodium chloride 0.9% infusion (0 mLs Intravenous Infusion Stop Time 02/01/25 1351) furosemide (LASIX) injection 40 mg (has no administration in time range) ipratropium-albuterol (DUONEB) 0.5-2.5 (3) MG/3ML nebulizer solution 3 mL (3 mLs Nebulization Given02/01/25 1707) New Prescriptions No medications on file Clinical impression: SNOMED CT(R) 1. Anemia requiring transfusions ANEMIA 2. Weakness ASTHENIA 3. Chronic congestive heart failure, unspecified heart failure type ([facility] H[facility]/HCC) CHRONIC CONGESTIVE HEART FAILURE 4. Chronic renal failure, stage 5 ([facility]) CHRONIC RENAL FAILURE 5. Elevated troponin CARDIAC ENZYME OR MARKER ABOVE REFERENCE RANGE 6. Personal history of colon cancer HISTORY OF MALIGNANT NEOPLASM OF COLON Disposition: Transfer to Another Facility Katherin Joel MD 02/01/2025 Katherin Joel MD 02/01/25 1421 * Jeannine Samaniego RN - 02/01/2025 11:24 AM CDT Transfusion changed to IV access in right AC at this time. * John Whitney MD - 02/01/2025 6:42 AM CDT Chief Complaint Chief Complaint Patient presents with Weakness History of Present Illness 79-year-old male with a history of hypertension, CVA, diabetes here with complaints of generalized weakness and shortness of breath. Patient felt somewhat nonspecifically unwell yesterday but cannot quite describe the exact symptoms. Today he had increasing weakness and EMS was contacted to transport the patient. On EMS arrival patient's oxygen saturations were in the upper 80s lower 90s. Oxygen saturations improved with nasal cannula. Patient denies history of respiratory diagnoses. No recent fever or chills. He denies known exposure to COVID or flu. Medical History ALLERGIES: Allergies Allergen Reactions Penicillins Anaphylaxis Celecoxib Unknown Sulfa Antibiotics Unknown MEDICATIONS: Prior to Admission medications Medication Sig Start Date End Date Taking? Authorizing Provider Ferrous Sulfate (IRON) 325 (65 Fe) MG tablet Take 1 tablet by mouth 2 (two) times daily. 05/10/20 [facility] losartan 100 MG tablet Take 1 tablet (100 mg total) by mouth daily. 05/07/20 [facility] verapamil ER (VERELAN PM) 240 MG 24 hr capsule 12/15/22 Default History Genericprovider verapamil SR 240 MG tablet Take 1 tablet (240 mg total) by mouth daily. 10/02/19 [facility] PAST MEDICAL HISTORY: Past Medical History: Diagnosis Date Hypertension PAST SURGICAL HISTORY: Past Surgical History: Procedure Laterality Date JOINT REPLACEMENT FAMILY HISTORY: Family History Problem Relation Name Age of Onset Hypertension Mother Stroke Mother Hypertension Father Diabetes Brother SOCIAL HISTORY: Social History Tobacco Use Smoking status: Never Smokeless tobacco: Never Substance Use Topics Alcohol use: Yes Review of Systems Review of Systems Physical Exam Filed Vitals: 02/01/25 0637 BP: (!) 148/89 Pulse: 79 Resp: 14 Temp: 98.2 ??F (36.8 ??C) TempSrc: Temporal SpO2: 95% Weight: 108.9 kg (240 lb) Height: 1.803 m (5' 11 ) Physical Exam Vitals and nursing note reviewed. Constitutional: General: He is not in acute distress. Appearance: He is well-developed. Comments: Appears dyspneic in general. HENT: Head: Normocephalic and atraumatic. Right Ear: External ear normal. Left Ear: External ear normal. Nose: Nose normal. Eyes: General: No scleral icterus. Pupils: Pupils are equal, round, and reactive to light. Cardiovascular: Rate and Rhythm: Normal rate and regular rhythm. Pulses: Normal pulses. Heart sounds: Normal heart sounds. Pulmonary: Effort: Pulmonary effort is normal. No respiratory distress. Breath sounds: No stridor. Wheezing present. No rales. Comments: Increased respiratory rate with abdominal breathing present. Wheeze noted on exhalation. No obvious rales however breath sounds are diminished at the bases. Abdominal: General: Bowel sounds are normal. There is no distension. Palpations: Abdomen is soft. Musculoskeletal: General: No deformity. Normal range of motion. Cervical back: Normal range of motion and neck supple. Comments: 1+ edema in the bilateral lower extremities without tenderness or erythema. Skin: General: Skin is warm and dry. Capillary Refill: Capillary refill takes less than 2 seconds. Findings: No rash. Neurological: Mental Status: He is alert and oriented to person, place, and time. Cranial Nerves: No cranial nerve deficit. Psychiatric: Mood and Affect: Mood normal. Behavior: Behavior normal. Diagnostic Studies / Procedures ELECTROCARDIOGRAMS: No results found for this visit on 02/01/25. LABORATORY STUDIES: No results found for this visit on 02/01/25. IMAGING STUDIES XR CHEST PORTABLE (Results Pending) ED Course / Medical Decision Making Medical Decision Making 79-year-old male here with generalized weakness and shortness of breath. Patient denies symptoms ofinfection. Has been tolerating oral intake without difficulty. No known exposures to COVID or flu. He denies chest pain. No changes in medications. Denies black or bloody stools. On examination patient vital signs are normal. Patient does appear dyspneic and pale upon general inspection auscultation demonstrates wheezes on exhalation with increased respiratory rate. No rhonchi are noted. No Ralesnoted however the patient does have diminished breath sounds in the bases bilaterally. 1+ pitting edema in the bilateral lower extremities. Labs were obtained. Patient signed out to the oncoming physician at 7 AM with request to continue following patient's diagnostic test results and disposition accordingly. Amount and/or Complexity of Data Reviewed Labs: ordered. Radiology: ordered. ECG/medicine tests: ordered. Clinical Impression None Disposition: Data Unavailable John Whitney MD 02/01/25 0656 * Rubia Muñiz RN - 02/01/2025 6:40 AM CDT Pt brought in by [facility] for c/o weakness and SOB that started yesterday. Pt reported feeling a little off yesterday and feeling off balance. documented in this encounter Plan of Treatment Pending Results Name Type Priority Associated Diagnoses Date /Time ECG 12 lead EKG-NonRad Routine 02/01/2025 6: 50 AM CDT TYPE AND SCREEN Blood Bank STAT 7:35 AM CDT Scheduled Orders Name Type Priority Associated Diagnoses Orde r Schedule RBC UNITS, 2 Units Blood Bank Routine Once f or 1 Occurrences starting 02/01/2025 until 02/01/2025 TROPONIN, QUANT Lab Routine Weakness 1 Occurrences starting 02/01/2025 until 02/01/2026 documented as of this encounter Procedures Procedure Name Priority Date/Time Associated Diagnosis Comments CBC W/DIFF AUTOMATED STAT 02/01/2025 2:15 PM CDT TRANSFUSE RED BLOOD CELLS STAT 02/01/2025 12:15 PM CDT URINALYSIS, AUTO, COMPLETE STAT 02/01/2025 12:00 PM CDT TRANSFUSE RED BLOOD CELLS STAT 02/01/2025 10:08 AM CDT TROPONIN, QUANT STAT 02/01/2025 8:50 AM CDT TYPE & SCREEN STAT 02/01/2025 7:35 AM CDT XR CHEST PORTABLE STAT 02/01/2025 7:2 0 AM CDT ECG 12-LEAD Routine 02/01/2025 6:50 AM CDT Procedure Note - 02/01/2025 6:50 AM CDTThis note is in progress. 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1945 Requested By: JOHN WHITNEY Order Number: [id number] Reading MD: Measurements Intervals [place] Rate: 78 P: 0 VT: 213 QRS: -6 QRSD: 96 T: 47 QT: 375 QTc: 427 Interpretive Statements SINUS RHYTHM WITH FIRST DEGREE AV BLOCK POSSIBLE RIGHT VENTRICULAR CONDUCTION DELAY [RSR (QR) IN V1/V2] POSSIBLE ANTERIOR MYOCARDIAL INFARCTION , OF INDETERMINATE AGE [30 ms QWAVE IN V3/V4, OR R < 0.2 mV IN V4] Compared to ECG 06/17/2021 18:01:27 First degree AV block now present Myocardial infarct finding now present Left-axis deviation no longer present Incomplete right bundle-branch block no longer present LACTIC ACID W REFLEX (SEPSIS) STAT 02/01/2025 6:49 AM CDT CORONAVIRUS (COVID 19) STAT 02/01/2025 6:49 AM CDT INFLUENZA A & B STAT 02/01/2025 6:49 AM CDT PRO-BRAIN NATRIURETIC PEPTIDE STAT 02/01/2025 6:41 AM CDT COMPREHENSIVE METABOLIC PANEL STAT 02/01/2025 6:41 AM CDT CBC W/DIFF AUTOMATED STAT 02/01/2025 6:41 AM CDT TROPONIN, QUANT STAT 02/01/2025 6:41 AM CDT MAGNESIUM STAT 02/01/2025 6:41 AM CDT documented in this encounter Results * (ABNORMAL) CBC W/DIFF AUTOMATED (02/01/2025 2:15 PM CDT) WBC 15.32(H) 4.4 - 11.0 x10'3/uL 02/01/2025 2:26 PM CDT [facility] RBC 3.15(L) 4.50 - 5.90 x10'6/uL 02/01/2025 2:26 PM CDT [facility] HGB 7.1(L) 14.0 - 17.5 G/DL 02/01/2025 2:26 PM CDT [facility] HCT 23.4(L) 41.5 - 50.4 % 02/01/2025 2:26 PM CDT [facility] MCV 74.3(L) 80.0 - 96.0 FL 02/01/2025 2:26 PM CDT [facility] MCH 22.5(L) 26.5 - 31.4 PG 02/01/2025 2:26 PM CDT [facility] MCHC 30.3(L) 31.9 - 34.8 G/DL 02/01/2025 2:26 PM CDT [facility] RDW 20.0(H) 12.3 - 14.3 % 02/01/2025 2:26 PM CDT [facility] PLT 266 151 - 353 x10'3/uL 02/01/2025 2:26 PM CDT [facility] MPV 8.9(L) 9.7 - 11.9 FL 02/01/2025 2:26 PM CDT [facility] RBC MORPHOLOGY NORMAL 02/01/2025 2:26 PM CDT [facility] PLT MORPH. NORMAL 02/01/2025 2:26 PM CDT [facility] WBC MORPHOLOGY NORMAL 02/01/2025 2:26 PM CDT [facility] LYMPHOCYTES % 5.1(L) 15.8 - 45.0 % 02/01/2025 2:27 PM CDT [facility] NEUTROPHILS % 83.7(H) 42.1 - 71.9 % 02/01/2025 2:27 PM CDT [facility] MONOCYTES % 9.7 5.7 - 12.5 % 02/01/2025 2:27 PM CDT [facility] EOSINOPHILS 0.0 0.0 - 5.6 % 02/01/2025 2:27 PM CDT [facility] BASOPHILS 0.1 0.0 - 1.3 % 02/01/2025 2:27 PM CDT [facility] ABS. NEUTROPHILS 12.83(H) 1.40 - 6.00 x10'3/uL 02/01/2025 2:27 PM CDT [facility] IMMATURE GRANS % 1.4(H) 0.0 - 0.5 % 02/01/2025 2:27 PM CDT [facility] ABS. LYMPHOCYTES 0.78(L) 0.80 - 4.70 x10'3/uL 02/01/2025 2:27 PM CDT [facility] 02/01/2025 2:15 PM CDT us Katherin Joel MD LABORATORY Final Result [facility] [address] [place] [address], * TRANSFUSE RED BLOOD CELLS (02/01/2025 1:47 PM CDT) Result Vero Whitney MD NURSING TREATMENT ORDERABL ES - BLOOD ADMIN Final Result * TRANSFUSE RED BLOOD CELLS, 2 Units (02/01/2025 1:47 PM CDT) Result Vero Whitney MD NURSING TREATMENT ORDERABL ES - BLOOD ADMIN Final Result * TRANSFUSE RED BLOOD CELLS (02/01/2025 12:01 PM CDT) us John Whitney MD NURSING TREATMENT ORDERABL ES - BLOOD ADMIN Final Result * (ABNORMAL) URINALYSIS, AUTO, COMPLETE (02/01/2025 12:00 PM CDT) COLOR (U) YELLOW 02/01/2025 2:11 PM CDT [facility] TRANSPARENCY CLEAR 02/01/2025 2:11 PM CDT [facility] SPECIFIC GRAVITY (U) 1.025 1.000 - 1.030 02/01/2025 2:11 PM CDT [facility] U PH 6.0 5.0 - 9.0 02/01/2025 2:11 PM CDT [facility] LEUKOCYTES (U) NEGATIVE NEGATIVE 02/01/2025 2:11 PM CDT [facility] NITRITES NEGATIVE NEGATIVE 02/01/2025 2:11 PM CDT [facility] PROTEIN RANDOM (U) 3+(A) NEGATIVE 02/01/2025 2:11 PM CDT [facility] GLUCOSE (U) NEGATIVE NEGATIVE 02/01/2025 2:11 PM CDT [facility] KETONES MG/DL (U) NEGATIVE NEGATIVE 02/01/2025 2:11 PM CDT [facility] BILIRUBIN (U) NEGATIVE NEGATIVE 02/01/2025 2:11 PM CDT [facility] BLOOD (U) TRACE(A) NEGATIVE 02/01/2025 2:11 PM CDT [facility] WBC/HPF NONE SEEN 0 - 5 /HPF 02/01/2025 2:11 PM CDT [facility] RBC/HPF 0-5 0 - 5 /HPF 02/01/2025 2:11 PM CDT [facility] EPI/HPF RARE /HPF 02/01/2025 2:11 PM CDT [facility] URINE SPECIMEN OBTAINED BY CLEAN CATCH PROCEDURE / Unknown 02/01/2025 12:00 PM CDT John Whitney MD URINE ORDERABLES Final Res ult Performing Organization Address [facility] Co de Phone Number [facility] [address] [place] [address], [place] [phone] * (ABNORMAL) TROPONIN, QUANT (02/01/2025 8:50 AM CDT) TROPONIN I HIGH SENSITIVITY 336(HH) 0 - 75 ng/L 02/01/2025 9:24 AM CDT [facility] Comment: Critical Result(s) Called at: 09:23:31 on 02/01/2025 by: MARCELL CHILDRESS to and read back by:THELMA IN ER HIGH DOSES OF BIOTIN, TROPONIN-SPECIFIC AUTOANTIBODIES, AND ANTIBODY THERAPY CONTAINING HAMA MAY INTERFERE WITH THIS TEST RESULT. CORRELATION TO CLINICAL HISTORY AND PRESENTATION RECOMMENDED. 02/01/2025 8:50 AM CDT us Katherin Joel MD LABORATORY Final Result Performing Organization Address [facility]/ZIP Co de Phone Number [facility] [address] [place] [address], [place] [phone] * XR CHEST PORTABLE (02/01/2025 7:20 AM CDT) Anatomical Region Laterality Modality Chest Radiographic Alisha ging 02/01/2025 7:26 AM CDT Impressions 02/01/2025 7:27 AM CDT IMPRESSION: Mild enlargement cardiac silhouette and vascular congestion. Referred By: Interpreted By: Alexandro Payne MD, 02/01/2025 7:26 AM Narrative 02/01/2025 7:27 AM CDT [address] [place] [address] Examination: XR CHEST PORTABLE Exam time: 02/01/2025 6:46 AM Clinical history: Shortness of breath and weakness since yesterday. Comparison: No prior Technique: AP upright view Findings: Multiple external wires and leads. There is mild enlargement of the cardiac silhouette and vascular congestion changes noted without evidence of focal atelectasis or infiltrate. No evidence of pleural effusion. Procedure Note Alexandro Payne MD - 02/01/[address] [place] [address] Examination: XR CHEST PORTABLE Exam time: 02/01/2025 6:46 AM Clinical history: Shortness of breath and weakness since yesterday. Comparison: No prior Technique: AP upright view Findings: Multiple external wires and leads. There is mild enlargement ofthe cardiac silhouette and vascular congestion changes noted withoutevidence of focal atelectasis or infiltrate. No evidence of pleuraleffusion. IMPRESSION: Mild enlargement cardiac silhouette and vascular congestion. Referred By: Interpreted By: Alexandro Payne MD, 02/01/2025 7:26 AM John Whitney MD GENERAL IMAGING Final Resu lt * INFLUENZA A & B (02/01/2025 6:49 AM CDT) SPECIMEN TYPE NASOPHARYNGEAL SWAB 02/01/2025 6:53 AM CDT [facility] INFLUENZA A NEGATIVE NEGATIVE 02/01/2025 7:34 AM CDT [facility] INFLUENZA B NEGATIVE NEGATIVE 02/01/2025 7:34 AM CDT [facility] NASOPHARYNGEAL SWAB / Unknown 02/01/2025 6:49 AM CDT us John Whitney MD MICROBIOLOGY - GENERAL ORD ERABLES Final Result Performing Organization Address City/[facility]/ZIP Co de Phone Number [facility] [address] [place] [address], [place] [phone] * CORONAVIRUS (COVID-19) MOLECULAR (02/01/2025 6:49 AM CDT) CORONAVIRUS SARS COV 2 RNA NEGATIVE NEGATIVE 02/01/2025 7:34 AM CDT [facility] Comment: NEGATIVE RESULTS DO NOT RULE OUT COVID 19 AND SHOULD NOT BE USED THE SOLE BASIS FOR TREATMENT OR PATIENT MANAGEMENT DECISIONS, INCLUDING INFECTION CONTROL DECISIONS. NEGATIVE RESULTS SHOULD BE CONSIDERED IN THE CONTEXT OF A PATIENT'S RECENT EXPOSURES, HISTORY AND THE PRESENCE OF CLINICAL SIGNS AND SYMPTOMS CONSISTENT WITH COVID 19. THE ID NOW COVID-19 2.0 TEST HAS BEEN AUTHORIZED BY THE FDA UNDER EAU FOR USE BY AUTHORIZED LABORATORIES. PERFORMED BY NUCLEIC ACID AMPLIFICATION FOR MOLECULAR QUALITATIVE DETECTION OF SARS-COV-2. SPECIMEN TYPE NASAL 02/01/2025 6:48 AM CDT [facility] NASOPHARYNGEAL SWAB / Unknown 02/01/2025 6:49 AM CDT us John Whitney MD MICROBIOLOGY - GENERAL ORD ERABLES Final Result Performing Organization Address City/[facility]/ZIP Co de Phone Number [facility] [address] [place] [address], [place] [phone] * LACTIC ACID W REFLEX (SEPSIS) (02/01/2025 6:49 AM CDT) LACTIC ACID VENOUS 1.3 0.4 - 2.0 MMOL/L 02/01/2025 7:14 AM CDT [facility] 02/01/2025 6:49 AM CDT us John Whitney MD LABORATORY Final Resu lt Performing Organization Address [facility]/ZIP Co de Phone Number [facility] [address] [place] [address], [place] [phone] * MAGNESIUM (02/01/2025 6:41 AM CDT) MAGNESIUM 2.1 1.8 - 2.4 MG/DL 02/01/2025 7:10 AM CDT [facility] 02/01/2025 6:41 AM CDT us John Whitney MD LABORATORY Final Resu lt Performing Organization Address [facility] Co de Phone Number [facility] [address] [place] [address], [place] [phone] * (ABNORMAL) PRO-BRAIN NATRIURETIC PEPTIDE (02/01/2025 6:41 AM CDT) PRO-B TYPE NATRIURETIC PEPTIDE 17,281(H) <450 PG/ML 02/01/2025 7:10 AM CDT [facility] Comment: CUT POINTS ESTABLISHED BY INTERNATIONAL CO[employer] ON NT PROBNP (ICON) STUDY (2006). AGE INDEPENDENT: <300 PG/ML HAS A 99% NEGATIVE PREDICTIVE VALUE FOR EXCLUDING ACUTE CHF <50 YEARS: >450 PG/ML IS CONSISTENT WITH ACUTE CHF 50-75 YEARS: >900 PG/ML IS CONSISTENT WITH ACUTE CHF >75 YEARS: >1800 PG/ML IS CONSISTENT WITH ACUTE CHF IN PATIENTS WITH RENAL INSUFFICIENCY (GFR <60), >1200 PG/ML YIELDS A DIAGNOSTIC SENSITIVITY AND SPECIFICITY OF 89% AND 72% FOR ACUTE CHF. 02/01/2025 6:41 AM CDT John Whitney MD LABORATORY Final Resu lt Performing Organization Address City/[facility]/ZIP Co de Phone Number [facility] [address] [place] [address], [place] [phone] * (ABNORMAL) TROPONIN, QUANT (02/01/2025 6:41 AM CDT) TROPONIN I HIGH SENSITIVITY 311(HH) 0 - 75 ng/L 02/01/2025 7:12 AM CDT [facility] Comment: Critical Result(s) Called at: 07:11:17 on 02/01/2025 by: MARCELL CHILDRESS to and read back by:DR JOEL IN ER HIGH DOSES OF BIOTIN, TROPONIN-SPECIFIC AUTOANTIBODIES, AND ANTIBODY THERAPY CONTAINING HAMA MAY INTERFERE WITH THIS TEST RESULT. CORRELATION TO CLINICAL HISTORY AND PRESENTATION RECOMMENDED. 02/01/2025 6:41 AM CDT John Whitney MD LABORATORY Final Resu lt Performing Organization Address [facility]/ZIP Co de Phone Number [facility] [address] [place] [address], [place] [phone] * (ABNORMAL) COMPREHENSIVE METABOLIC PANEL (02/01/2025 6:41 AM CDT) GLUCOSE 145(H) 70 - 99 MG/DL 02/01/2025 7:10 AM CDT [facility] BUN 75(H) 7 - 18 MG/DL 02/01/2025 7:10 AM CDT [facility] CREATININE S/P/B 4.36(H) 0.7 - 1.3 MG/DL 02/01/2025 7:10 AM CDT [facility] SODIUM S/P/B 141 136 - 145 MMOL/L 02/01/2025 7:10 AM CDT [facility] POTASSIUM S/P/B 4.6 3.5 - 5.1 MMOL/L 02/01/2025 7:10 AM [facility] CHLORIDE S/P/B 108 100 - 108 MMOL/L 02/01/2025 7:10 AM [facility] CO2 17.2(L) 21 - 32 MMOL/L 02/01/2025 7:10 AM [facility] CALCIUM S/P/B 9.4 8.5 - 10.1 MG/DL 02/01/2025 7:10 AM [facility] BILIRUBIN TOTAL S/P/B 0.4 0.2 - 1.2 MG/DL 02/01/2025 7:10 AM [facility] TOTAL PROTEIN S/P/B 6.5 6.4 - 8.2 G/DL 02/01/2025 7:10 AM [facility] ALBUMIN S/P/B 3.6 3.4 - 5.0 G/DL 02/01/2025 7:10 AM [facility] AST 11(L) 15 - 37 U/L 02/01/2025 7:10 AM [facility] ALT 15(L) 16 - 60 U/L 02/01/2025 7:10 AM [facility] ALKALINE PHOSPHATASE S/P/B 68 50 - 136 U/L 02/01/2025 7:10 AM [facility] ANION GAP 15.8(H) 5 - 15 MMOL/L 02/01/2025 7:10 AM [facility] BUN CREATININE RATIO 17.2 6 - 26 02/01/2025 7:10 AM [facility] A/G RATIO 1.2 1.0 - 2.0 RATIO 02/01/2025 7:10 AM [facility] GFR ESTIMATE 13(L) >90 ML/MIN/1.7 3 M2 02/01/2025 7:10 AM T [facility] Comment: NOTE: eGFR is not calculated for patients <18 years of age. This is an estimated GFR calculation using the new CKD EPI creatinine equation without race and so does not require a correction factor for race. This estimated GFR should not be used for calculating drug doses. 02/01/2025 6:41 AM CDT us John Whitney MD LABORATORY Final Resu lt [facility] [address] [place] [phone], * (ABNORMAL) CBC W/DIFF AUTOMATED (02/01/2025 6:41 AM CDT) WBC 15.05(H) 4.4 - 11.0 x10'3/uL 02/01/2025 7:02 AM T [facility] RBC 2.59(L) 4.50 - 5.90 x10'6/uL 02/01/2025 7:02 AM T [facility] HGB 5.2(LL) 14.0 - 17.5 G/DL 02/01/2025 7:02 AM T [facility] Comment: ALERT VALUE CALLED TO AND READ BACK BY: DR WHITNEY IN ER [id number] AJD HCT 18.3(LL) 41.5 - 50.4 % 02/01/2025 7:02 AM T [facility] Comment: ALERT VALUE CALLED TO AND READ BACK BY: DR WHITNEY IN ER [id number] AJD MCV 70.7(L) 80.0 - 96.0 FL 02/01/2025 7:02 AM T [facility] MCH 20.1(L) 26.5 - 31.4 PG 02/01/2025 7:02 AM T [facility] MCHC 28.4(L) 31.9 - 34.8 G/DL 02/01/2025 7:02 AM [facility] RDW 17.8(H) 12.3 - 14.3 % 02/01/2025 7:02 AM [facility] PLT 309 151 - 353 x10'3/uL 02/01/2025 7:02 AM [facility] MPV 9.0(L) 9.7 - 11.9 FL 02/01/2025 7:02 AM [facility] SEG NEUTROPHILS 95(H) 42 - 72 % 7:33 AM [facility] LYMPHOCYTES 3(L) 15.8 - 45.0 % 02/01/2025 7:33 AM [facility] MONOCYTES 2(L) 5.7 - 12.5 % 02/01/2025 7:33 AM [facility] ABS. NEUTROPHILS 14.30(H) 1.40 - 6.00 x10'3/uL 02/01/2025 7:33 AM [facility] ABS. LYMPHOCYTES 0.45(L) 0.80 - 4.70 x10'3/uL 02/01/2025 7:33 AM [facility] PLT MORPH. NORMAL 02/01/2025 7:33 AM [facility] RBC MORPHOLOGY MODERATE 02/01/2025 7:33 AM [facility] Comment: ANISOCYTOSIS SLIGHT POIKILOCYTOSIS MODERATE MICROCYTES MODERATE HYPOCHROMASIA WBC MORPHOLOGY NORMAL 02/01/2025 7:33 AM [facility] 02/01/2025 6:4 1 AM CDT John Whitney MD LABORATORY Edited Res ult - Final [facility] [address] [place] [address], [place] [phone] documented in this encounter Visit Diagnoses Diagnosis Anemia requiring transfusions- Primary Anemia, unspecified Weakness Other malaise and fatigue Chronic congestive heart failure, unspecified heart failure type (CMS/HCC HHS/HCC) Chronic renal failure, stage 5 (CMS/HCC HHS/HCC) Elevated troponin Other abnormal blood chemistry Personal history of colon cancer Personal history of malignant neoplasm of large intestine documented in this encounter Administered Medications Active Administered Medications - up to 3 most recent administrations Medication Order MAR Action Action Date Dose Rate Site sodium chloride 0.9% infusion at 10 mL/hr, Intravenous, Continuous, Starting on Judi 02/01/25 at 0715, Until Wed02/02/25 at 0714, Infuse at TKO rate New Bag 02/01/2025 10:23 AM CDT 100 mLs 10 mL/hr Inactive Administered Medications - up to 3 most recent administrations Medication Order MAR Action Action Date Dose Rate Site ipratropium-albuterol (DUONEB) 0.5-2.5 (3) MG/3ML nebulizer solution 3 mL 3 mL, Nebulization, Once, 1 dose, On Judi 02/01/25 at 0645 Given 02/01/2025 6:54 AM CDT 3 mLs documented in this encounter Active and Recently Administered Medications Times are shown in CDT. Scheduled Medication Order 01/30/2025 01/31/2025 02/01/2025 furosemide (LASIX) injection 40 mg 40 mg, Intravenous, Once, 1 dose, On Judi 02/01/25 at 1415, Administer IV push 20-40mg/min. 1415 (Due) ipratropium-albuterol (DUONEB) 0.5-2.5 (3) MG/3ML nebulizer solution 3 mL (COMPLETED) 3 mL, Nebulization, Once, 1 dose, On Judi 02/01/25 at 0645 0654 (Given - Provid er: Rubia Muñiz RN) Continuous Medication Order 01/30/2025 01/31/2025 02/01/2025 sodium chloride 0.9% infusion at 10 mL/hr, Intravenous, Continuous, Starting on Judi 02/01/25 at 0715, Until Wed02/02/25 at 0714, Infuse at TKO rate 1023 (New Bag - Prov ider: Jeannine Samaniego RN)1351 (Infusion Stop Time - Provider: Jeannine Samaniego RN) documented in this encounter Additional Health Concerns Infection Onset Date Last Indicated Resolved Time COVID-19 Rule Out 02/01/2025 02/01/2025 02/01/2025 7:34 AM CDT Respiratory Rule-Out 02/01/2025 02/01/2025 025 7:34 AM CDT documented as of this encounter Care Teams Automatic Folder Seamer Relationship Specialty Start Date End Date Oscar Abarca MD [address] [place] [address] PCP - General FAMILY PRACTICE 06/28/20 documented as of this encounter
--- OUTSIDE RECORDS SUMMARY | 2025-02-01 17:40 | XMS_ITS | Encounter Summary ---
Author Organization [facility] Address [address] [place] [address] Care Team Providers Care Dining Room Host/Hostess Name Role Phone Oscar Abarca MD Primary Care Provider [phone] Encounter Details Date Type Department Care Team (Late st Contact Info) Description 02/25/2013 Abstract [facility] CONVERSION [address] [place] [id number] , Generic Conversion, Social History Tobacco Use Types Packs/Day Years Used Date Smoking Tobacco: Never Assessed Sex and Gender Information Value Date Recorded Sex Assigned at Male 02/01/2025 6:45 AM CDT Legal Sex Male 5:50 PM CDT Gender Identity Male 07/21/2022 4:37 PM CDT Sexual Orientation Straight 02/01/2025 6: 45 AM CDT documented as of this encounter Plan of Treatment Not on file documented as of this encounter Visit Diagnoses Not on filedocumented in this encounter Additional Health Concerns Infection Onset Date Last Indicated Resolved Time COVID-19 Rule Out 06/28/2020 06/28/2020 06/29/2020 7:58 PM CDT COVID-19 Rule Out 08/02/2020 08/02/2020 08/03/2020 2:35 PM CDT COVID-19 Rule Out 06/17/2021 06/17/2021 06/17/2021 6:54 PM CDT COVID-19 Rule Out 02/01/2025 02/01/2025 02/01/2025 7:34 AM CDT Respiratory Rule-Out 02/01/2025 02/01/2025 025 7:34 AM CDT documented as of this encounter Care Teams Dining Room Host/Hostess Relationship Specialty Start Date End Date Oscar Abarca MD [address] [facility] [address] [place] [address] PCP - General FAMILY PRACTICE 06/28/20 documented as of this encounter
--- OUTSIDE RECORDS SUMMARY | 2025-02-01 17:40 | XMS_ITS | Clinical Summary ---
Author Organization [facility] Address [address] [place] [address] Phone Care Team Providers Care Daycare Teacher Name Role Phone Oscar Abarca MD Primary Care Provider [phone] Allergies Active Allergy Reactions Criticality Noted Date Comments Aranda-2 Inhibitors (Sulfonamide) Penicillins Sulfa Antibiotics Medications Medication Sig Dispensed Refills Start Date End Date Status aspirin (ST DIANA) 81 MG EC tablet 1 tab/cap qday 09/13/2013 Active losartan (COZAAR) 100 MG tablet 1 tab/cap qday 0 09/20/2013 Active Ferrous Sulfate (IRON) 325 (65 Fe) MG tablet 3 03/31/2019 Act kay verapamil SR (CALAN-SR) 240 MG CR tablet TAKE 2 TABLETS BY MOUTH ONCE DAILY WITH FOOD 2 10/02/2019 Active Active Problems Problem Noted Date Diagnosed Date Other asthma 09/04/2015 Hypertensive chronic kidney disease with stage 1 through stage 4 chronic kidney disease, or unspecified chronic kidney disease 09/04/2015 Chronic kidney disease, stage 3 (moderate) 05/29 Malignant neoplasm of prostate 09/13/2013 Acute kidney failure 09/13/2013 Bladder-neck obstruction 09/13/2013 Hydronephrosis 09/13/2013 Essential (primary) hypertension 09/13/2013 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 Gastro-esophageal reflux disease without esophag itis 09/13/2013 Arthropathy, unspecified, site unspecified 09/13 Overview (02/04/2019): Converted unresolved ICD9, potential mismatch. Immunizations Name Administration Dates Next Due Influenza TIV (IM) 11/11/2016, 6,09/04/2015, 015,09/19/2014 Influenza, Injectable, Quadrivalent 08/23/2020,1 Pneumococcal Conjugate 13-Valent 01/08/2016 Family History Medical History Relation Comments Kidney disease Neg Hx Kidney stone Neg Hx Social History Tobacco Use Types Packs/Day Years Used Date Smoking Tobacco: Never Smokeless Tobacco: Never Alcohol Use Standard Drinks/Week Comments No 0 (1 standard drink = 0.6 oz pur e alcohol) Sex and Gender Information Value Date Recorded Sex Assigned at Not on file Gender Identity Not on file Sexual Orientation Not on file Last Filed Vital Signs Vital Sign Reading Time Taken Comments Blood Pressure 132/74 04/30/2021 9:17 AM CDT Pulse 72 05/18/2018 12:01 AM CDT Temperature 36.4 C (97.5 F) 04/30/2021 9:17 AM CDT Respiratory Rate 18 04/30/2021 9:17 AM CDT Oxygen Saturation - - Inhaled Oxygen Concentration - - Weight 108 kg (238 lb) 04/30/2021 9:17 AM CDT Height 180.3 cm (5' 11 ) 04/30/2021 9:17 AM CDT Body Mass Index 33.19 04/30/2021 9:17 AM CDT Plan of Treatment Health Maintenance Due Date Last Done Comments Pneumococcal PPSV23/PCV13 65 + Years / Low and Medium Risk (2 of 3 - PPSV23 or PCV20) 01/08/2017 01/08/2016 Influenza Vaccine (#1) 2024 6, 01/08/2016, 09/04/2015, Additional history exists Care Teams Daycare Teacher Relationship Specialty Start Date End Date Oscar Abarca MD [address] [facility] [address] [facility] [address] [place] [address] PCP - General Internal Medicine 05/14/19
--- OUTSIDE RECORDS SUMMARY | 2025-02-01 17:40 | XMS_ITS | Encounter Summary ---
Author Organization [facility] Address [address] [place] [address] Care Team Providers Care Set Painter Name Role Phone Oscar Abarca MD Primary Care Provider [phone] Encounter Details Date Type Department Care Team (Latest Contact Info) Description 02/01/2025 Travel Social History Tobacco Use Types Packs/Day Years Used Date Smoking Tobacco: Former Cigarettes Smokeless Tobacco: Never Alcohol Use Standard Drinks/Week Comments Yes 0 [...] documented as of this encounter Care Teams Set Painter Relationship Specialty Start Date End Date Oscar Abarca MD [address] [facility] [address] [place] [address] PCP - General FAMILY PRACTICE 06/28/20 documented as of this encounter
--- OUTSIDE RECORDS SUMMARY | 2025-02-01 17:40 | XMS_ITS | Referral Summary ---
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
--- OUTSIDE RECORDS SUMMARY | 2025-02-01 17:40 | XMS_ITS | Clinical Summary ---
Author Organization 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
--- OUTSIDE RECORDS SUMMARY | 2025-02-01 17:40 | XMS_ITS | Clinical Summary ---
Author Organization [facility] Address [address] [place] [address] Care Team Providers Care Landscape Crew Member Name Role Phone Oscar Abarca MD Primary Care Provider [phone] Allergies Active Allergy Reactions Criticality Noted Date Comments Celecoxib Unknown 06/25/2020 Penicillins Anaphylaxis High 06/25/2020 Sulfa Antibiotics Unknown 06/25/2020 Medications * This document contains information received from the source organization and may not represent a complete record from that organization. losartan 100 MG tablet Take 1 tablet (100 mg total) by mouth daily. 05/07/2020 Active verapamil SR 240 MG tablet Take 1 tablet (240 mg total) by mouth daily. 10/02/2019 Active Ferrous Sulfate (IRON) 325 (65 Fe) MG tablet Take 1 tablet by mouth 2 (two) times daily. 05/10/2020 Active verapamil ER (VERELAN PM) 240 MG 24 hr capsule 12/15/2022 Ac tive Active Problems No known active problems Encounters Date Type Department Care Team Description 02/01/2025 6:35 AM CDT - 02/01/2025 4:33 PM CDT Emergency [facility] Emergency Room [address] [place] [address] John Whitney MD Buggs, Mablene, MD Weakness Discharge Disposition: Another Health Care Institution Not Defined 02/01/2025 Travel from Last 3 Months Immunizations Name Administration Dates Next Due Tdap (Boostrix) 09/08/2022 Family History Medical History Relation Comments Diabetes Brother Hypertension Father Hypertension Mother Stroke Mother Relation Status Comments Brother Father Mother Social History Tobacco Use Types Packs/Day Years [...] Orientation Straight 02/01/2025 6: 45 AM CDT Last Filed Vital Signs Vital Sign Reading [...] Mass Index 33.47 02/01/2025 6:37 AM CDT Plan of Treatment Health Maintenance Due Date Last Done Comments Hepatitis C 1963 Zoster Vaccines (1 of 2) 1996 Annual Medicare Wellness Visit 2011 Pneumococcal Vaccine: 65+ Years (3 of 3 - PPSV23 or PCV20) 08/23/2018 08/23/2017, 01/08/2016, 09/28/2002 RSV Immunization or 60+ Years (1 - 1-dose 75+ series) 2021 COVID-19 Vaccine ( - season) 2024 Influenza Adult (#1) 2024 08/23/2020, 08/23/2019, 09/04/2018, Additional history exists DTaP, Tdap and Td Vaccines (2 - Td or Tdap) 09/08/2032 09/08/2022 Colorectal Cancer Screening FIT/FOBT (1 Year) Discontinued 06/17/2021 Meningococcal B Vaccine Aged Out No l onger eligible based on patient's age to complete this topic Meningococcal Vaccine Aged Out No matthew jose aleajndro eligible based on patient's age to complete this topic RSV Immunizations Under 20 Months Aged Out No longer eligible based on patient's age to complete this topic Medical Devices Implanted Type Area Manager Transfer Device Identifier Shelf Expiration Date Model / Serial / Lot Iol [employer] Zcboo - [id number] Implanted:Qty: 1 on 08/05/2020 by Alfredo Vides MD at [facility] Lens Right: Eye [employer] 05/01/2024 ZCB00 / [id number] / Tecnis 1 Aspheric Iol Implanted:Qty: 1 on 07/01/2020 by Alfredo Vides MD at [facility] 06/22/2023 ZCBOO / [id number] / Procedures Procedure Name Priority Date/Time Associated Diagnosis [...] 6:50 AM CDTThis note is in progress. 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 INFLUENZA A & B STAT 02/01/2025 6:49 AM CDT CORONAVIRUS (COVID 19) STAT 02/01/2025 6:49 AM CDT LACTIC ACID W REFLEX (SEPSIS) STAT 02/01/2025 6:49 AM CDT MAGNESIUM STAT 02/01/2025 6:41 AM CDT PRO-BRAIN NATRIURETIC PEPTIDE STAT 02/01/2025 6:41 AM CDT TROPONIN, QUANT STAT 02/01/2025 6:41 AM CDT COMPREHENSIVE METABOLIC PANEL STAT 02/01/2025 6:41 AM CDT CBC W/DIFF AUTOMATED STAT 02/01/2025 6:41 AM CDT OCCULT BLOOD, FECES STAT 06/17/2021 7 :15 PM CDT from Last 3 Months or Most Recently Relevant to Health Maintenance Results * (ABNORMAL) CBC W/DIFF AUTOMATED (02/01/2025 2:15 PM CDT) Only the most recent of2 resultswithin the time period is included. WBC 15.32(H) 4.4 - 11.0 x10'3/uL 02/01/2025 2:26 PM [facility] RBC 3.15(L) 4.50 - 5.90 x10'6/uL 02/01/2025 2:26 PM T [facility] HGB 7.1(L) 14.0 - 17.5 G/DL 02/01/2025 2:26 PM [facility] HCT 23.4(L) 41.5 - 50.4 % 02/01/2025 2:26 PM [facility] MCV 74.3(L) 80.0 - 96.0 FL 02/01/2025 2:26 PM T [facility] MCH 22.5(L) 26.5 - 31.4 PG 02/01/2025 2:26 PM [facility] MCHC 30.3(L) 31.9 - 34.8 G/DL 02/01/2025 2:26 PM [facility] RDW 20.0(H) 12.3 - 14.3 % 02/01/2025 2:26 PM T [facility] PLT 266 151 - 353 x10'3/uL 02/01/2025 2:26 PM [facility] MPV 8.9(L) 9.7 - 11.9 FL 02/01/2025 2:26 PM [facility] RBC MORPHOLOGY NORMAL 02/01/2025 2:26 PM [facility] PLT MORPH. NORMAL 02/01/2025 2:26 PM T [facility] WBC MORPHOLOGY NORMAL 02/01/2025 2:26 PM [facility] LYMPHOCYTES % 5.1(L) 15.8 - 45.0 % 02/01/2025 2:27 PM T [facility] NEUTROPHILS % 83.7(H) 42.1 - 71.9 % 02/01/2025 2:27 PM CDT [facility] MONOCYTES % 9.7 5.7 - 12.5 % 02/01/2025 2:27 PM CDT [facility] EOSINOPHILS 0.0 0.0 - 5.6 % 02/01/2025 2:27 PM CDT [facility] BASOPHILS 0.1 0.0 - 1.3 % 02/01/2025 2:27 PM CDT [facility] ABS. NEUTROPHILS 12.83(H) 1.40 - 6.00 x10'3/uL 02/01/2025 2:27 PM CDT [facility] IMMATURE GRANS % 1.4(H) 0.0 - 0.5 % 02/01/2025 2:27 PM CDT [facility] ABS. LYMPHOCYTES 0.78(L) 0.80 - 4.70 x10'3/uL 02/01/2025 2:27 PM CDT [facility] 02/01/2025 2:15 PM CDT us Katherin Joel MD LABORATORY Final Result Performing Organization Address City/State/[facility] Co de Phone Number [facility] [address] [place] [address], [place] [phone] * TRANSFUSE RED BLOOD CELLS (02/01/2025 1:47 PM CDT) Only the most recent of2 resultswithin the time period is included. John Whitney MD NURSING TREATMENT ORDERABL ES - BLOOD ADMIN Final Result * (ABNORMAL) URINALYSIS, AUTO, COMPLETE (02/01/2025 12:00 PM CDT) COLOR (U) YELLOW 02/01/2025 2:11 PM CDT [facility] TRANSPARENCY CLEAR 02/01/2025 2:11 PM CDT [facility] SPECIFIC GRAVITY (U) 1.025 1.000 - 1.030 02/01/2025 2:11 PM CDT [facility] U PH 6.0 5.0 - 9.0 02/01/2025 2:11 PM CDT [facility] LEUKOCYTES (U) NEGATIVE NEGATIVE 02/01/2025 2:11 PM CDT [facility] NITRITES NEGATIVE NEGATIVE 02/01/2025 2:11 PM CDT [facility] PROTEIN RANDOM (U) 3+(A) NEGATIVE 02/01/2025 2:11 PM CDT [facility] GLUCOSE (U) NEGATIVE NEGATIVE 02/01/2025 2:11 PM CDT [facility] KETONES MG/DL (U) NEGATIVE NEGATIVE 02/01/2025 2:11 PM T [facility] BILIRUBIN (U) NEGATIVE NEGATIVE 02/01/2025 2:11 PM CDT [facility] BLOOD (U) TRACE(A) NEGATIVE 02/01/2025 2:11 PM T [facility] WBC/HPF NONE SEEN 0 - 5 /HPF 02/01/2025 2:11 PM CDT [facility] RBC/HPF 0-5 0 - 5 /HPF 02/01/2025 2:11 PM CDT [facility] EPI/HPF RARE /HPF 02/01/2025 2:11 PM CDT [facility] URINE SPECIMEN OBTAINED BY CLEAN CATCH PROCEDURE / Unknown 02/01/2025 12:00 PM CDT us John Whitney MD URINE ORDERABLES Final Res ult [facility] [address] [place] [address], [place] [phone] * (ABNORMAL) TROPONIN, QUANT (02/01/2025 8:50 AM CDT) Only the most recent of2 resultswithin the time period is included. TROPONIN I HIGH SENSITIVITY 336(HH) 0 - 75 ng/L 02/01/2025 9:24 AM CDT [facility] Comment: Critical Result(s) Called at: 09:23:31 on 02/01/2025 by: MARCELL CHILDRESS to and read back by:THELMA IN ER HIGH DOSES OF BIOTIN, TROPONIN-SPECIFIC AUTOANTIBODIES, AND ANTIBODY THERAPY CONTAINING HAMA MAY INTERFERE WITH THIS TEST RESULT. CORRELATION TO CLINICAL HISTORY AND PRESENTATION RECOMMENDED. 02/01/2025 8:50 AM CDT Katherin Joel MD LABORATORY Final Result [facility] [address] [place] [address], [place] [phone] * XR CHEST PORTABLE (02/01/2025 7:20 AM CDT) Anatomical Region Laterality Modality Chest Radiographic Alisha ging 02/01/2025 7:26 AM CDT Impressions 02/01/2025 7:27 AM CDT IMPRESSION: Mild enlargement cardiac silhouette and vascular congestion. Referred By: Interpreted By: Alexandro Payne MD, 02/01/2025 7:26 AM Narrative 02/01/2025 7:27 AM CDT [address] [place] [address] Examination: XR CHEST PORTABLE Exam time: 02/01/2025 6:46 AM Clinical history: Shortness of breath and weakness since yesterday. Comparison: No prior Technique: AP upright view Findings: Multiple external wires and leads. There is mild enlargement of the cardiac silhouette and vascular congestion changes noted without evidence of focal atelectasis or infiltrate. No evidence of pleural effusion. Procedure Note Alexandro Payne MD - 02/01/2025 [place] [id number] [facility] [place] [address] Examination: XR CHEST PORTABLE Exam time: 02/01/2025 [...] MD GENERAL IMAGING Final Resu lt * LACTIC ACID W REFLEX (SEPSIS) (02/01/2025 6:49 AM CDT) LACTIC ACID VENOUS 1.3 0.4 - 2.0 MMOL/L 02/01/2025 7:14 AM CDT [facility] 02/01/2025 6:49 AM CDT John Whitney MD LABORATORY Final Resu lt [facility] [address] [facility] [address], [place] [phone] * CORONAVIRUS (COVID-19) MOLECULAR (02/01/2025 6:49 AM CDT) CORONAVIRUS SARS COV 2 RNA NEGATIVE NEGATIVE 02/01/2025 7:34 AM CDT [facility] Comment: NEGATIVE RESULTS DO NOT RULE [...] SPECIMEN TYPE NASAL 02/01/2025 6:48 AM CDT [facility] NASOPHARYNGEAL SWAB / Unknown 02/01/2025 6:49 AM CDT us John Whitney MD MICROBIOLOGY - GENERAL ORD ERABLES Final Result Performing Organization Address [facility] Co de Phone Number [facility] [address] [place] [address], [place] [phone] * INFLUENZA A & B (02/01/2025 6:49 AM CDT) SPECIMEN TYPE NASOPHARYNGEAL SWAB 02/01/2025 6:53 AM CDT [facility] INFLUENZA A NEGATIVE NEGATIVE 02/01/2025 7:34 AM CDT [facility] INFLUENZA B NEGATIVE NEGATIVE 02/01/2025 7:34 AM CDT [facility] NASOPHARYNGEAL SWAB / Unknown 02/01/2025 6:49 AM CDT us John Whitney MD MICROBIOLOGY - GENERAL ORD ERABLES Final Result Performing Organization Address City/[facility] Co de Phone Number [facility] [address] [place] [address], [place] [phone] * (ABNORMAL) PRO-BRAIN NATRIURETIC PEPTIDE (02/01/2025 6:41 AM CDT) PRO-B TYPE NATRIURETIC PEPTIDE 17,281(H) <450 PG/ML 02/01/2025 7:10 AM CDT [facility] Comment: CUT POINTS ESTABLISHED BY INTERNATIONAL [...] FOR ACUTE CHF. 02/01/2025 6:41 AM CDT us John Whitney MD LABORATORY Final Resu lt [facility] [address] [place] [address], [place] [phone] * (ABNORMAL) COMPREHENSIVE METABOLIC PANEL (02/01/2025 6:41 AM CDT) Pathologist [facility] GLUCOSE 145(H) 70 - 99 MG/DL 02/01/2025 7:10 AM CDT [facility] BUN 75(H) 7 - 18 MG/DL 02/01/2025 7:10 AM CDT [facility] CREATININE S/P/B 4.36(H) 0.7 - 1.3 MG/DL 02/01/2025 7:10 AM CDT [facility] SODIUM S/P/B 141 136 - 145 MMOL/L 02/01/2025 7:10 AM CDT [facility] POTASSIUM S/P/B 4.6 3.5 - 5.1 MMOL/L 02/01/2025 7:10 AM CDT [facility] CHLORIDE S/P/B 108 100 - 108 MMOL/L 02/01/2025 7:10 AM CDT [facility] CO2 17.2(L) 21 - 32 MMOL/L 02/01/2025 7:10 [facility] CALCIUM S/P/B 9.4 8.5 - 10.1 MG/DL 02/01/2025 7:10 AM [facility] BILIRUBIN TOTAL S/P/B 0.4 0.2 - 1.2 MG/DL 02/01/2025 7:10 AM [facility] TOTAL PROTEIN S/P/B 6.5 6.4 - 8.2 G/DL 02/01/2025 7:10 AM [facility] ALBUMIN S/P/B 3.6 3.4 - 5.0 G/DL 02/01/2025 7:10 AM [facility] AST 11(L) 15 - 37 U/L 02/01/2025 7:10 AM [facility] ALT 15(L) 16 - 60 U/L 02/01/2025 7:10 AM [facility] ALKALINE PHOSPHATASE S/P/B 68 50 - 136 U/L 02/01/2025 7:10 AM [facility] ANION GAP 15.8(H) 5 - 15 MMOL/L 02/01/2025 7:10 AM [facility] BUN CREATININE RATIO 17.2 6 - 26 02/01/2025 7:10 AM [facility] A/G RATIO 1.2 1.0 - 2.0 RATIO 02/01/2025 7:10 AM [facility] GFR ESTIMATE 13(L) >90 ML/MIN/1.7 3 M2 02/01/2025 7:10 AM [facility] Comment: NOTE: eGFR is not calculated for patients <18 years of age. This is an estimated GFR calculation using the new CKD EPI creatinine equation without race and so does not require a correction factor for race. This estimated GFR should not be used for calculating drug doses. 02/01/2025 6:41 AM CDT John Whitney MD LABORATORY Final Resu lt Performing Organization Address City/[facility]/ZIP Co de Phone Number [facility] [address] [place] [address], [place] [phone] * MAGNESIUM (02/01/2025 6:41 AM CDT) MAGNESIUM 2.1 1.8 - 2.4 MG/DL 02/01/2025 7:10 AM CDT [facility] 02/01/2025 6:41 AM CDT John Whitney MD LABORATORY Final Resu lt Performing Organization Address [facility]/ZIP Co de Phone Number [facility] [address] [place] [address], [place] [phone] * OCCULT BLOOD, FECES (06/17/2021 7:15 PM CDT) OCCULT BLOOD FECAL NEGATIVE NEGATIVE 06/17/2021 7:19 PM CDT [facility] STOOL SPECIMEN / Unknown 06/17/2021 7:15 PM CDT Harman Luis MD BODY FLUIDS AND STOOL S ORDERABLES Final Result [facility] [address] [place] [address], [place] [phone] from Last 3 Months or Most Recently Relevant to Health Maintenance Insurance [facility]IC[facility] Care Teams Landscape Crew Member Relationship Specialty Start Date End Date Oscar Abarca MD [address] [facility] [address] [place] [address] PCP - General FAMILY PRACTICE 06/28/20
--- OUTSIDE RECORDS SUMMARY | 2025-02-01 17:40 | XMS_ITS | Encounter Summary ---
Author Organization [facility] Address [address] [place] [address] Care Team Providers Care Canceling Machine Operator Name Role Phone Oscar Abarca MD Primary Care Provider [phone] Encounter Details Date Type Department Care Team (Late st Contact Info) Description 04/28/2013 Abstract [facility] CONVERSION [address] [place] [id number] , Generic Conversion, Social History Tobacco Use [...] documented as of this encounter Care Teams Canceling Machine Operator Relationship Specialty Start Date End Date Oscar Abarca MD [address] [facility] [address] [place] [address] PCP - General FAMILY PRACTICE 06/28/20 documented as of this encounter
--- OUTSIDE RECORDS SUMMARY | 2025-02-01 17:40 | XMS_ITS | Encounter Summary ---
Author Organization [facility] Address [address] [place] [address] Care Team Providers Care Clipman Name Role Phone Oscar Abarca MD Primary Care Provider [phone] Encounter Details Date Type Department Care Team (Late st Contact Info) Description 08/01/2020 Prep for Procedure [facility] Day Services [address] [place] [address] Alfredo Vides MD [address] [facility] [address] [place] [address] Social History Tobacco Use Types Packs/Day Years [...] Orientation Straight 02/01/2025 6: 45 AM CDT COVID-19 Exposure Response Date Recorded In the last month, have you been in contact with someone who was confirmed or suspected to have Coronavirus / COVID-19? No / Unsure 08/02/2020 7:56 AM CDT documented as of this encounter Plan of Treatment Not on file documented as of this encounter Results * PRE-SURGICAL/PRE-PROCEDURE CORONAVIRUS (COVID 19) (08/02/2020 8:00 AM CDT) CORONAVIRUS SARS COV 2 PCR (RESP) NOT DETECTED NOT DETECTED 08/03/2020 2:35 PM CDT [facility] Comment: A Not Detected (negative) test result for this test means that SARS- CoV-2 RNA was not present in the specimen above the limit of detection. A negative result does not rule out the possibility of COVID-19 and should not be used as the sole basis for treatment or patient management decisions. If COVID-19 is still suspected, based on exposure history together with other clinical findings, re-testing should be considered in consultation with public health authorities. Laboratory test results should always be considered in the context of clinical observations and epidemiological data in making a final diagnosis and patient management decisions. Please review the Fact Sheets and FDA authorized labeling available for health care providers and patients using the following websites: https://www.[employer].Proficiency/home/Covid-19/HCP/NAAT/fact-sheet2 https://www.[employer].Proficiency/home/Covid-19/Patients/NAAT/ fact-sheet2 This test has been authorized by the FDA under an Emergency Use Authorization (EUA) for use by authorized laboratories. Due to the current public health emergency, [employer] is receiving a high volume of samples from a wide variety of swabs and media for COVID-19 testing. In order to serve patients during this public health crisis, samples from appropriate clinical sources are being tested. Negative test results derived from specimens received in non-commercially manufactured viral collection and transport media, or in media and sample collection kits not yet authorized by FDA for COVID-19 testing should be cautiously evaluated and the patient potentially subjected to extra precautions such as additional clinical monitoring, including collection of an additional specimen. Methodology: Nucleic Acid Amplification Test (NAAT) includes PCR or TMA Additional information about COVID-19 can be found at the [employer] website: www.LISNR.Proficiency/Covid19. Test performed at [facility] [address] [place] [address] Director: LISANDRO JAIMES DO,MPH FIRST TEST UNKNOWN 08/02/2020 7:59 AM CDT [facility] EMPLOYED IN HEALTHCARE NO 08/02/2020 7:59 AM CDT [facility] SYMPTOMATIC DEFINED BY CDC UNKNOWN 08/02/2020 7:59 AM CDT [facility] DATE OF SYMPTOM ONSET UNKNOWN 08/02/2020 3:25 PM CDT [facility] HOSPITALIZATION STATUS NO 08/02/2020 7:59 AM CDT [facility] PATIENT IN ICU NO 08/02/2020 7:59 AM CDT [facility] UNKNOWN 08/02/2020 7:59 AM CDT [facility] NO 08/02/2020 3:25 PM CDT [facility] PATIENT'S RACE WHITE OR 08/02/2020 7:59 AM CDT [facility] ETHNICITY NONHISPANIC 08/02/2020 7:59 AM CDT [facility] SOURCE (QST) NASOPHARYNGEAL SWAB 08/02/2020 7:59 AM CDT [facility] NASOPHARYNGEAL SWAB / Unknown 08/02/2020 8:00 AM CDT us Alfredo Vides MD MICROBIOLOGY - GENERAL ORDERAB LES Final Result [facility] [address] [place] [address], [facility] [address] [address], documented in this encounter Visit Diagnoses Diagnosis Preop testing- Primary Preoperative examination, unspecified documented in this encounter Additional Health Concerns Infection Onset Date Last Indicated Resolved Time COVID-19 Rule Out 08/02/2020 08/02/2020 08/03/2020 2:35 PM CDT COVID-19 Rule Out 06/17/2021 06/17/2021 06/17/2021 6:54 PM CDT COVID-19 Rule Out 02/01/2025 02/01/2025 02/01/2025 7:34 AM CDT Respiratory Rule-Out 02/01/2025 02/01/2025 025 7:34 AM CDT documented as of this encounter Care Teams Clipman Relationship Specialty Start Date End Date Oscar Abarca MD [address] [place] [address] PCP - General FAMILY PRACTICE 06/28/20 documented as of this encounter
--- OUTSIDE RECORDS SUMMARY | 2025-02-01 17:40 | XMS_ITS | Encounter Summary ---
Author Organization [facility] Address [address] [place] [address] Care Team Providers Care User Experience Researcher Name Role Phone Oscar Abarca MD Primary Care Provider [phone] Encounter Details Date Type Department Care Team (Late st Contact Info) Description 06/25/2020 Prep for Procedure [facility] One Day Services [address] [place] [address] Alfredo Vides MD [address] [facility] [address] [address] Social History [...] have Coronavirus / COVID-19? No / Unsure 06/28/2020 8:42 AM CDT documented as of this encounter Plan of Treatment Not on file documented as of this encounter Results * PRE-SURGICAL/PRE-PROCEDURE CORONAVIRUS (COVID 19) (06/28/2020 9:08 AM CDT) Pathologist [facility] CORONAVIRUS SARS COV 2 PCR (RESP) NOT DETECTED NOT DETECTED 06/29/2020 7:58 PM CDT [facility] Comment: A Not Detected (negative) test result [...] providers and patients using the following websites: https://www.[employer].MetaLINCS/home/Covid-19/HCP/NAAT/fact-sheet2 https://www.[employer].MetaLINCS/home/Covid-19/Patients/NAAT/ fact-sheet2 This test has been authorized by the FDA under an Emergency Use Authorization (EUA) for use by authorized laboratories. Due to the current public health emergency, [employer] [facility] is receiving a high volume of samples [...] about COVID-19 can be found at the [employer] website: www.[employer].MetaLINCS/Covid19. Test performed at [facility] [place] [address] [place] [address] Director: LISANDRO JAIMES DO,MPH NASOPHARYNGEAL SWAB / Unknown 06/28/2020 9:08 AM CDT Alfredo Vides MD MICROBIOLOGY - GENERAL ORDERAB LES Final Result [facility] [address] [place] [address], documented in this encounter Visit Diagnoses Diagnosis Pre-op testing- Primary Preoperative examination, unspecified documented in [...] documented as of this encounter Care Teams User Experience Researcher Relationship Specialty Start Date End Date Oscar Abarca MD [address] [facility] [address] [place] [address] PCP - General FAMILY PRACTICE 06/28/20 documented as of this encounter
[2025-02-01 18:00] VITALS: PULSE 80
--- NOTE | 2025-02-01 18:15 | PC.NURSE ---
Patient attempting to get out of bed, alarm activated. Reviewed safety procedures and call system again with patient. Patient incontinent of urine, external cath placed, CHAPIN Bergman notified.
--- NOTE | 2025-02-01 18:16 | P.HP_ITS ---
H&P: HPI History of Present Illness Date/Time: 02/01/25 18:16 Chief Complaint: JEAN-PIERRE CHF exacerbation GI bleed Narrative: This is a 79-year-old male with a significant past medical history of stage 4 chronic kidney disease, iron deficiency anemia, prostate cancer, hypertension, congestive heart failure, former smoker who presented to the hospital as a direct admit from [facility] in [facility]. Patient states that he was at his alf facility and was trying to get up however felt very weak and then he started in with shortness of Breath. They called EMS and transferred him to [facility] in [facility]. Workup at [facility] included labs which shown a hemoglobin of 5.2, hematocrit 18.3, BUN 75, creatinine 4.36, normal lactic acid, troponin 331> 336 which was reviewed by the Cardiology team there and was deemed demand ischemia. Patient was given 2 units PRBC. patient denies any fever, chills, nausea, vomiting, diarrhea, abdominal pain, chest pain. He does report a sore throat and congestion. On examination patient was found to be tachypneic with use of accessory muscles at rest, course lung sounds bilaterally. Workup here at [place] included a chest x-ray which showed bilateral interstitial thickening suggestive of pneumonitis. Initial labs showed a white blood cell count of 15.3, hemoglobin 7.5, bicarb 12, anion gap 18, BUN 68, creatinine 4.20, EGFR 14, blood sugar 141, hemoglobin A1c 5.3, magnesium was 2.1, troponin 0.373, proBNP 82731, TSH 1.850. Review of Systems Review of Systems: All systems reviewed & are unremarkable except as noted in HPI and below [facility] Past Medical History Medical History CKD (chronic kidney disease), stage IV CKD (chronic kidney disease), stage III Calcific tendonitis of left shoulder Hypertensive chronic kidney disease with stage 1 through stage 4 chronic kidney disease, or unspecified chronic kidney disease Wellness examination Unsteady gait Iron deficiency anemia H/O adenomatous polyp of colon CKD (chronic kidney disease) Prostate cancer Essential hypertension Cervical disc disease with myelopathy Neuropathy Surgical History Surgical History History of bilateral knee replacement Family History Family History Father Carcinoma of colon Social History Social History Social History: the patient recently became . He lives home alone. He does not have any children. The patient stated that he has not smoked in over 50 years. He does not use any marijuana or illicit drugs. The patient stated that he does not typically drink beer but if he has company he will drink beer and he does not usually count how many he drinks at 1 time. The patient has nieces and nephews who has a connection with and he desires to have them as the durable power health outcomes liaison for healthcare. The patient stated that he does not want to be intubated. Years smoked: 5 Smoking status: Never smoker Tobacco type: cigarettes Second hand tobacco smoke exposure: Yes Smoking end date: 11/22/69 Alcohol intake: former Drinks per week: 5 Alcohol use details: not regularly Substance use: never Substance use type: does not use Last use: 01/27/25 Do You Feel Safe in your Home?: Yes Lack of Transportation: No Lack of Food: Never True Current Housing: I Do Not Have Housing Concerned About Future Housing: No Difficulty Paying Gas/Electric Bills: No Difficulty Paying for Meds: No Currently Unemployed: No Education: High School Diploma/GED Difficulty w/ Childcare or Family Care: No Living arrangements: assisted living Occupation/Education: retired Gender identity (if verbalized by the patient): Male Sexual Orientation (if Verbalized by the Patient): Straight or Heterosexual Spiritual care concerns: No Meds Home Medications and Allergies Home Medications ?Medication ?Instructions ?Recorded ?Confirmed ?Type verapamil 240 mg 24 hr 240 mg PO BID #180 caps 03/24/24 02/01/25 Rx capsule,extended release losartan 100 mg tablet 100 mg PO DAILY #90 tabs 11/20/24 02/01/25 Rx metoprolol succinate 25 mg 25 mg PO DAILY #30 tabs 11/20/24 02/01/25 Rx tablet,extended release 24 hr acetaminophen 500 mg tablet 500 mg PO Q6H PRN pain 12/27/24 02/01/25 History (Tylenol Extra Strength) fluticasone propionate 50 1 spray intranasal DAILY #16 grams 01/31/25 02/01/25 Rx mcg/actuation nasal spray,suspension Allergies Allergy/AdvReac Type Severity Reaction Status Date / Time celecoxib Allergy Severe TONGUE Verified 12/27/24 07:48 SWELLED amlodipine Allergy Unknown Edema Verified 12/27/24 07:48 Penicillins Allergy Unknown UNKNOWN Verified 12/27/24 07:48 Sulfa (Sulfonamide Allergy Unknown UNKNOWN Verified 12/27/24 07:48 Antibiotics) Vital Signs Vital Signs - 24 hr 02/01/25 17:30 Temperature 98.4 F Pulse Rate 77 Respiratory Rate 24 H Blood Pressure 180/81 H Pulse Oximetry 97 Exam Narrative: General: In no acute distress, well nourished Head: atraumatic, no encephalopathy Eyes: PERRLA, sclera clear ENT: moist mucous membranes, nasal passages clear Neck: supple, no JVD, no adenopathy, trachea midline Cardiac: Normal S1 and S2. No murmur, gallops or friction rubs, peripheral pulses intact. Respiratory: Lungs course bilaterally with use of accessory muscles, no adventitious lung sounds, currently on room air Gastrointestinal: soft, non-distended, non-tender, normoactive bowel sounds. : voiding without difficulty. Extremities: moves all extremities well, no edema Skin: clean, dry, intact. No wounds or lesions. Neuro: Alert and oriented x4, cranial nerves intact, no neuro deficits. Psych: normal mood, normal affect, interactive H&P: Results Imaging Chest x-ray: Radiologist's impression: XR chest 1V portable Ordering provider: Madalyn Kramer APRN History: 79 years Male with . shortness of breath . Comparison: July 18, 2021 FINDINGS: MEDIASTINUM: The cardiac silhouette is slightly enlarged. Congestive jeri. LUNGS: No effusions or pneumothorax. Bilateral interstitial thickening suggestive of pneumonitis. Pulmonary edema is not excluded although less likely. OTHER: No free air under the diaphragm. Degenerative changes of the spine. IMPRESSION: Pneumonitis seen bilaterally. Pulmonary edema is not excluded. Reviewed, dictated and finalized at location A. Assessment and Plan Assessment and plan (1) Acute kidney injury superimposed on chronic kidney disease: Code(s): N17.9 - Acute kidney failure, unspecified; N18.9 - Chronic kidney disease, unspecified Status: Acute Assessment and Plan: * BUN 68 / creatinine 4.20, EGFR 14 * Continue to trend * nephrology consulted * will give 40 of Lasix now (2) CKD (chronic kidney disease), stage IV: Code(s): N18.4 - Chronic kidney disease, stage 4 (severe) Status: Acute Assessment and Plan: see above plan of care (3) Anemia: Code(s): D64.9 - Anemia, unspecified Status: Acute Assessment and Plan: * at [facility] patient was found to have a hemoglobin of 5.2, hematocrit 18.3 and was given 2 units PRBC while in the ED there * hemoglobin now 7.5, hematocrit 25.7 * continue to monitor for any signs of bleeding * check occult blood stool * possible worsening anemia due to his chronic kidney disease * transfuse if below hemoglobin less than 7/ hematocrit less than 21 (4) Essential hypertension: Code(s): I10 - Essential (primary) hypertension Status: Acute Assessment and Plan: * blood pressure ranging 154/87 to 180/81 * will hold losartan due to JEAN-PIERRE * verapamil 240 mg p.o. b.i.d. ordered * hydralazine ordered for systolic blood pressure greater than 180 Quality VTE Prophylaxis VTE prophylaxis: mechanical ordered Hospitalist MIPS Advance Care Plan I have confirmed that the patient's Advanced Care Plan is present, code status is documented, or surrogate decision maker is listed in patient medical record.: Yes Medication Reconciliation I have utilized all available resources to obtain, update and review the patients current medications (includes all prescriptions, OTC, herbals, cannabis, and nutritional supplements).: Yes
--- NOTE | 2025-02-01 18:21 | ECG_ITS ---
Test Date: 2025-02-01 18:41:01 Measurements Intervals [place] Rate: 82 P: -4 MN: 176 QRS: -8 QRSD: 106 T: 45 QT: 388 QTc: 455 Interpretive Statements SINUS RHYTHM WITH OCCASIONAL VENTRICULAR PREMATURE COMPLEXES INCOMPLETE RIGHT BUNDLE BRANCH BLOCK [90+ ms QRS DURATION, TERMINAL R IN V1/V2, 40+ ms S IN I/aVL/V4/V5/V6] No previous ECG available for comparison Electronically Signed On 02-02-2025 16:49:07 CDT by Lesli Sharp M.D.
[2025-02-01 18:59] LABS: Basophils Percent Auto 0.1 % (0.2-1.2); Eosinophils Percent Auto 0.1 % (0-4.4); Hematocrit 25.7 % (42.0-52.0); Hemoglobin 7.5 g/dL (14.0-18.0); Immature Granulocyte Absolute 0.17 K/mm3 (0.00-0.031); Immature Granulocyte Percent A 1.1 % (0-0.5); Lymphocytes Absolute Auto 0.55 K/mm3 (0.9-3.2); Lymphocytes Percent Auto 3.6 % (18.3-44.2); Mean Corpuscular HGB Conc 29.2 g/dl (32-36); Mean Corpuscular Hemoglobin 21.8 pg (26-34); Mean Corpuscular Volume 74.7 fl (80-100); Mean Platelet Volume 8.9 fl (7.4-10.4); Monocytes Absolute Auto 1.9 K/mm3 (0.1-0.6); Monocytes Percent Auto 12.2 % (2.6-8.5); Neutrophils Absolute Auto 12.7 K/mm3 (1.3-6.7); Neutrophils Percent Auto 82.9 % (45.5-73.1); Nucleated Red Blood Cells Perc 0.2 % (0.0-0.2); Platelet Count Result 299 k/mm3 (150-375); Red Blood Count 3.44 M/mm3 (4.6-6.20); Red Cell Distribution Width 19.5 % (11.5-14.5); White Blood Count 15.3 K/mm3 (4.5-10.0)
[2025-02-01 19:11] LABS: Alanine Aminotransferase 19 U/L (6-50); Albumin Level 4.3 g/dL (3.5-5.1); Alkaline Phosphatase 70 U/L (38-126); Anion Gap 18 mmol/L (4-12); Aspartate Amino Transferase 19 U/L (17-59); Bilirubin,Total 0.8 mg/dL (0.2-1.3); Blood Urea Nitrogen 68 mg/dL (9-20); Calcium 9.2 mg/dL (8.4-10.2); Carbon Dioxide 12 mmol/L (22-30); Chloride 107 mmol/L (98-107); Estimated CRCL calculation 17 ml/min; Estimated Glomerular Filt Rate 14; Glucose 141 mg/dL (65-110); Potassium 4.2 mmol/L (3.4-5.0); Sodium 137 mmol/L (137-145)
[2025-02-01 19:13] LABS: Magnesium 2.1 mg/dL (1.6-2.3)
[2025-02-01 19:22] LABS: NT Pro B Type Natriuretic Pept 18000 pg/mL (19.9-100)
[2025-02-01 19:24] LABS: Anisocytosis 1+; Hypochromasia 1+; Platelet Estimate Adequate (Adequate)
[2025-02-01 19:25] LABS: Microcytosis 1+ (NORMAL); Ovalocytes 1+; Schistocytes None Seen
[2025-02-01 19:36] LABS: Troponin I 0.373 ng/mL (0.000-0.034)
[2025-02-01 19:55] VITALS: BP 172/85; PULSE 75; RESP 20; TEMP 36.8; O2SAT 94
[2025-02-01 20:00] VITALS: PULSE 77
[2025-02-01] MEDS: ACETAMINOPHEN 325 MG TABLET 650 MG PO (20:13)
[2025-02-01 20:22] LABS: Hemoglobin A1C 5.3 % (<5.7)
[2025-02-01 22:00] VITALS: PULSE 82
[2025-02-01] MEDS: FUROSEMIDE INJ 40 MG/4 ML VIAL IV PUSH (22:19)
[2025-02-01] MEDS: VERAPAMIL HCL ER 240 MG TABLET.ER PO (22:19)
[2025-02-01 23:05] LABS: Troponin I 0.367 ng/mL (0.000-0.034)
[2025-02-01 23:08] LABS: Influenza A QL RT-PCR Negative (Negative); Influenza B QL RT-PCR Negative (Negative); RSV RNA, RT-PCR Negative (Negative); SARS-CoV-2 RNA PCR Negative (Negative)
[2025-02-02] VITALS (16 sets, daily range): BP systolic 144–169; BP diastolic 74–83; PULSE 53–83; RESP 18–26; TEMP 36.3–37; O2SAT 93–98
--- NOTE | 2025-02-02 | ECHO_ITS ---
Patient Info Name: Kyree Corona Age: 79 years : 1945 Gender: Male Ht: 72 in Wt: 235 lbs BSA: 2.36 m2 HR: 68 bpm BP: 168 / 82 mmHg Technical Quality: Good Exam Date: 02/02/2025 12:51 PM Exam Location: Echo Lab Patient Status: Inpatient Admit Date: 02/01/2025 Staff Ordering Physician: Madalyn Kramer APRN Flow Worker: Rupal Culver RDCS Attending Provider: Joe Ma MD Referring Physician: Williams BLACKWELL; Exam Type: CA echo doppler color flow Study Info Indications - SOB Complete two-dimensional, color flow and Doppler transthoracic echocardiogram is performed. Summary 1. Left ventricular chamber dimension is normal. 2. Left ventricular systolic function is normal, estimated at 50-55%. 3. There is mildly increased left ventricular wall thickness. 4. Right ventricular chamber dimension is mildly enlarged. 5. Right ventricular systolic function is normal. 6. Left atrial chamber dimension is moderately enlarged. 7. Right atrial chamber dimension is moderately enlarged. 8. There is moderate to severe mitral valve regurgitation. 9. There is moderate tricuspid valve regurgitation. 10. Pulmonary hypertension, estimated pulmonary arterial systolic pressure is 68 mmHg. Left Ventricle Left ventricular chamber dimension is normal. Left ventricular systolic function is normal, estimated at 50-55%. There is mildly increased left ventricular wall thickness. The left ventricular diastolic function is abnormal. Right Ventricle Right ventricular chamber dimension is mildly enlarged. Right ventricular systolic function is normal. Left Atria Left atrial chamber dimension is moderately enlarged. Right Atria Right atrial chamber dimension is moderately enlarged. Atrial Septum Intact interatrial septum visualized by color flow imaging. Aortic Valve The aortic valve is trileaflet. There is no aortic valve regurgitation. There is mild aortic valve calcification. Pulmonic Valve The pulmonic valve is not well visualized. There is trace pulmonic regurgitation. Mitral Valve There is moderate to severe mitral valve regurgitation. Tricuspid Valve There is moderate tricuspid valve regurgitation. Pulmonary hypertension, estimated pulmonary arterial systolic pressure is 68 mmHg. Pericardium/Pleural There is no pericardial effusion. Inferior Vena Cava Dilated inferior vena cava with <50% collapse upon inspiration consistent with elevated right atrial pressure, 15 mmHg. Aorta The aortic root size at the sinus of Valsalva is normal. Left Ventricular Outflow Tract Name Value Normal LVOT 2D LVOT Diameter 2.0 cm LVOT Doppler LVOT Peak Gradient 5 mmHg LVOT Mean Gradient 3 mmHg LVOT VTI 22 cm LVOT VTI/AV VTI Ratio 0.7 LVOT Stroke Volume 69 ml LVOT CO 16.5 l/min LVOT CI 7.0 l/min/m2 Mitral Valve Name Value Normal MV Doppler MV Decel [place] 471 cm/s2 MV PHT 60 ms MV Area (PHT) 3.6 cm2 4.0-5.0 MV Regurgitation Doppler MR ERO (PISA) 0.05 cm2 MR Volume (PISA) 9 ml MV Diastolic Function MV E Peak Velocity 98 cm/s MV A Peak Velocity 3 cm/s MV E/A 38.3 MV Decel Time 208 ms MV Annular TDI MV E/e' (Septal) 10.7 <=8.0 MV E/e' (Lateral) 9.0 <=8.0 MV E/e' (Average) 9.8 Tricuspid Valve Name Value Normal TV Regurgitation Doppler TR Peak Velocity 364 cm/s TR Peak Gradient 53 mmHg Estimated PAP/RSVP RA Pressure 15 mmHg <=5 PA Systolic Pressure 68 mmHg <36 RV Systolic Pressure 68 mmHg <36 Aorta Name Value Normal Ascending Aorta Ao Root Diameter (MM) 3.0 cm Ao Root Diam Index (MM) 1.3 cm/m2 Aortic Valve Name Value Normal AV Doppler AV Peak Velocity 179 cm/s AV Peak Gradient 11 mmHg AV Mean Gradient 6 mmHg AV VTI 30 cm AV Area (Cont Eq VTI) 2.3 cm2 >=3.0 AV Area (Cont Eq G[place]) 2.3 cm2 AV Regurgitation 2D LVOT Area 3.2 cm2 Ventricles Name Value Normal LV Dimensions 2D/MM IVS Diastolic Thickness (2D) 1.1 cm 0.6-1.0 LVID Diastole (2D) 5.0 cm 4.2-5.8 LVIW Diastolic Thickness (2D) 1.2 cm 0.6-1.0 LVID Systole (2D) 3.8 cm 2.5-4.0 LVOT Diameter 2.0 cm LV Mass (2D Cubed) 218.05 g 88.00-224.00 LV Mass Index (2D Cubed) 93 g/m2 49-115 Relative Wall Thickness (2D) 0.48 LV Fractional Shortening/Ejection Fraction 2D/MM LV Fractional Shortening (2D) 24 % 25-43 LV EF (2D Teicholz) 47 % 52-72 LV Diastolic Volume (4C MOD) 129 ml LV EF (4C MOD) 51 % LV Diastolic Volume (2C MOD) 125 ml LV EF (2C MOD) 61 % LV Diastolic Volume (BP MOD) 128 ml 62-150 LV Diastolic Volume Index (BP MOD) 54 ml/m2 34-74 LV Systolic Volume (BP MOD) 56 ml 21-61 LV Systolic Volume Index (BP MOD) 24 ml/m2 11-31 LV EF (BP MOD) 56 % 52-72 LV Diastolic Length (4C) 9.2 cm LV Systolic Length (4C) 7.7 cm LV Stroke Volume (4C MOD) 65 ml RV Dimensions 2D/MM RVID Diastole (2D) 4.6 cm 2.5-3.5 Atria Name Value Normal LA Dimensions LA Dimension (MM) 4.6 cm 3.0-4.1 LA Volume (4C A-L) 98 ml LA Volume (BP A-L) 98 ml RA Dimensions RA Area (4C) 31.7 cm2 <=18.0 Report Signatures
[2025-02-02 00:21] LABS: IFOB Positive Control Positive; Immunochemical Fecal Occult Bl Positive (N)
[2025-02-02 01:46] LABS: Troponin I 0.351 ng/mL (0.000-0.034)
[2025-02-02] MEDS: IPRATROPIUM 0.5 MG/ALBUTEROL SULFATE 2.5 MG AMPUL.NEB 3 ML INHALATION (04:25)
[2025-02-02 04:52] LABS: Basophils Percent Auto 0.1 % (0.2-1.2); Eosinophils Percent Auto 0.1 % (0-4.4); Hematocrit 24.9 % (42.0-52.0); Hemoglobin 7.4 g/dL (14.0-18.0); Immature Granulocyte Absolute 0.24 K/mm3 (0.00-0.031); Immature Granulocyte Percent A 1.5 % (0-0.5); Lymphocytes Absolute Auto 0.71 K/mm3 (0.9-3.2); Lymphocytes Percent Auto 4.4 % (18.3-44.2); Mean Corpuscular HGB Conc 29.7 g/dl (32-36); Mean Corpuscular Hemoglobin 22.2 pg (26-34); Mean Corpuscular Volume 74.6 fl (80-100); Mean Platelet Volume 8.5 fl (7.4-10.4); Monocytes Absolute Auto 1.8 K/mm3 (0.1-0.6); Monocytes Percent Auto 11.2 % (2.6-8.5); Neutrophils Absolute Auto 13.4 K/mm3 (1.3-6.7); Neutrophils Percent Auto 82.7 % (45.5-73.1); Nucleated Red Blood Cells Perc 0.2 % (0.0-0.2); Platelet Count Result 277 k/mm3 (150-375); Red Blood Count 3.34 M/mm3 (4.6-6.20); White Blood Count 16.2 K/mm3 (4.5-10.0)
[2025-02-02 05:07] LABS: Alanine Aminotransferase 17 U/L (6-50); Albumin Level 4.1 g/dL (3.5-5.1); Alkaline Phosphatase 67 U/L (38-126); Anion Gap 15 mmol/L (4-12); Aspartate Amino Transferase 19 U/L (17-59); Bilirubin,Total 0.8 mg/dL (0.2-1.3); Blood Urea Nitrogen 71 mg/dL (9-20); Calcium 9.2 mg/dL (8.4-10.2); Carbon Dioxide 16 mmol/L (22-30); Chloride 107 mmol/L (98-107); Estimated CRCL calculation 17 ml/min; Estimated Glomerular Filt Rate 14; Glucose 128 mg/dL (65-110); Potassium 3.9 mmol/L (3.4-5.0); Sodium 138 mmol/L (137-145)
[2025-02-02 05:08] LABS: Band Neutrophils Percent 0 % (0-6); Platelet Estimate Adequate (Adequate)
[2025-02-02 05:09] LABS: Anisocytosis 1+; Hypochromasia 1+; Ovalocytes 1+; Schistocytes None Seen
[2025-02-02 06:01] LABS: Add Urine Microscopic? YES; Appearance Urine Clear (Clear); Bacteria Urine None Seen /hpf; Bilirubin Urine Negative (Negative); Blood Urine Negative (Negative); Color Urine Yellow (Yellow); Glucose Urine UA Negative (Negative); Ketones Urine Negative (Negative); Leukocyte Esterase Ur Negative LEU/UL (Negative); Nitrate Urine Negative (Negative); Non Pathogenic Casts 0-2; Protein Urine 3+ mg/dL (Negative); RBC Urine 0-2 /hpf (0-2); Specific Grav Ur 1.014 (1.001-1.035); Squamous Epithelial Cell Urine None Seen /hpf (Few); Urobilinogen Urine 0.2 mg/dL (<2.0); WBC Urine 0-5 /hpf (0-3)
[2025-02-02] MEDS: VERAPAMIL HCL ER 240 MG TABLET.ER PO ×2 (08:45→20:17)
[2025-02-02] MEDS: FLUTICASONE PROPIONATE 0.05% NA SPR 16 GM BTL (*BKC) 1 SPRAY NASAL (08:46)
--- NOTE | 2025-02-02 10:53 | P.CONNP_ITS ---
Assessment and Plan Assessment and plan (1) Acute kidney injury superimposed on chronic kidney disease: Code(s): N17.9 - Acute kidney failure, unspecified; N18.9 - Chronic kidney disease, unspecified Status: Acute Assessment and Plan: The patient has chronic kidney disease. This is due to hypertension. His baseline creatinine runs around 3.5. He has said in the past that he does not want to do dialysis I asked him again and he said ?will not now ?. I asked him what he would say if I told him that he needed dialysis or else he would pass away within the next couple of weeks. He said me ?I have to think about that one ?. The patient has acute on chronic injury. This may be related to his pulmonary process or could be related to his anemia. It is remotely possible that he might have some pre renal aspect. However he says that he has been eating and drinking well. He is not on diuretics. He does not need oxygen. His chest x-ray shows fluid in his lungs have a few crackles. However this could be related to pneumonitis as he possibly has the same viral illness as others in his facility. Will check a chest CT scan and see what it shows. (2) Anemia: Code(s): D64.9 - Anemia, unspecified Status: Acute Assessment and Plan: His hemoglobin is 7.4. He has not had a hemoglobin since 2022 does hard to know with this is all of a sudden or gradual. However he does have guaiac-positive stools and had symptoms of weakness making it more likely that this was fairly rapid over the last few weeks. He tells me that he did not have a blood transfusion yet his hemoglobin was 5.2 at [place] and then 7.4 here. Possibly the 5.2 drawn above a line or something. Will check another hemoglobin tomorrow. Will get iron levels B12 and folate and give him some Epogen. (3) Benign hypertension with chronic kidney disease: Code(s): I12.9 - Hypertensive chronic kidney disease with stage 1 through stage 4 chronic kidney disease, or unspecified chronic kidney disease Status: Acute Assessment and Plan: Blood pressure is a bit high. He is on metoprolol, losartan, and verapamil at home. His pulse is 80. Because of the renal failure will hold the losartan will continue metoprolol for now. Will switch verapamil to amlodipine to get a little more antihypertensive effect. History of Present Illness Reason for Consult Consult date: 02/02/25 Chief Complaint Chief complaint: JEAN-PIERRE On Chronic Heart Failure/GI Bleeding History of Present Illness Narrative: Kyree is a very pleasant 79-year-old gentleman who has chronic kidney disease stage IV the care of Dr. Keller in the office, hypertension, anemia, renal osteodystrophy, neuropathy, prostate cancer. Patient last saw Dr. Keller in the office in December. His creatinine has been running in the mid threes. He was sent to education about dialysis and the patient told Dr. Keller that he did not want to do dialysis that he would want ?nature to take its course ?. The patient says that for about the last week he has had a cough. He looks dyspneic but denies shortness of breath adamantly. He said that yesterday he tried to get up from a chair and began to be very weak. This worsened and so he went to the ER at [facility]. There his creatinine was found to be 4.3 and his hemoglobin only 5.2 so he was transferred to [facility]. He was seen in the emergency room. He was indeed anemic. His stool did have blood in it. His chest x-ray showed interstitial markings. His oxygenation was fine and he had no swelling. He received 40mg of Lasix and was admitted to a regular bed. The patient says that at the half-way ever but he has got a cough this last couple of weeks so he was not surprised that he had a cough. Review of Systems 2 Constitutional: Constitutional: Reports no additional constitutional complaints Eyes: Eyes: Reports no additional eye complaints ENT: Reports system reviewed and no additional complaints, except as documented Cardiovascular: Cardiovascular: Reports no additional cardiovascular complaints Respiratory: Respiratory: Reports no additional respiratory complaints Gastrointestinal: Gastrointestinal: Reports no additional gastrointestinal complaints Genitourinary: Genitourinary: Reports no additional male genitourinary complaints Musculoskeletal: Musculoskeletal: Reports no additional musculoskeletal complaints Integumentary/Breasts: Skin/Breast: Reports system reviewed and no additional complaints, except as docu Neurologic: Reports system reviewed and no additional complaints, except as documented Psychiatric: Psychiatric: Reports no additional psychiatric complaints Endocrine: Endocrine: Reports no additional endocrine complaints PMFSH Past Medical History Medical History CKD (chronic kidney disease), stage IV CKD (chronic kidney disease), stage III Calcific tendonitis of left shoulder Hypertensive chronic kidney disease with stage 1 through stage 4 chronic kidney disease, or unspecified chronic kidney disease Wellness examination Unsteady gait Iron deficiency anemia H/O adenomatous polyp of colon CKD (chronic kidney disease) Prostate cancer Essential hypertension Cervical disc disease with myelopathy Neuropathy Surgical History Surgical History History of bilateral knee replacement Family History Family History Father Carcinoma of colon Social History Social History Social History: the patient recently became . He lives home alone. He does not have any children. The patient stated that he has not smoked in over 50 years. He does not use any marijuana or illicit drugs. The patient stated that he does not typically drink beer but if he has company he will drink beer and he does not usually count how many he drinks at 1 time. The patient has nieces and nephews who has a connection with and he desires to have them as the durable power prosecuting attorney for healthcare. The patient stated that he does not want to be intubated. Years smoked: 5 Smoking status: Never smoker Tobacco type: cigarettes Second hand tobacco smoke exposure: Yes Smoking end date: 11/22/69 Alcohol intake: former Drinks per week: 5 Alcohol use details: not regularly Substance use: never Substance use type: does not use Last use: 01/27/25 Do You Feel Safe in your Home?: Yes Lack of Transportation: No Lack of Food: Never True Current Housing: I Do Not Have Housing Concerned About Future Housing: No Difficulty Paying Gas/Electric Bills: No Difficulty Paying for Meds: No Currently Unemployed: No Education: High School Diploma/GED Difficulty w/ Childcare or Family Care: No Living arrangements: assisted living Occupation/Education: retired Gender identity (if verbalized by the patient): Male Sexual Orientation (if Verbalized by the Patient): Straight or Heterosexual Spiritual care concerns: No Meds Home Medications and Allergies Home Medications ?Medication ?Instructions ?Recorded ?Confirmed ?Type verapamil 240 mg 24 hr 240 mg PO BID #180 caps 03/24/24 02/01/25 Rx capsule,extended release losartan 100 mg tablet 100 mg PO DAILY #90 tabs 11/20/24 02/01/25 Rx metoprolol succinate 25 mg 25 mg PO DAILY #30 tabs 11/20/24 02/01/25 Rx tablet,extended release 24 hr acetaminophen 500 mg tablet 500 mg PO Q6H PRN pain 12/27/24 02/01/25 History (Tylenol Extra Strength) fluticasone propionate 50 1 spray intranasal DAILY #16 grams 01/31/25 02/01/25 Rx mcg/actuation nasal spray,suspension Allergies Allergy/AdvReac Type Severity Reaction Status Date / Time celecoxib Allergy Severe TONGUE Verified 12/27/24 07:48 SWELLED amlodipine Allergy Unknown Edema Verified 12/27/24 07:48 Penicillins Allergy Unknown UNKNOWN Verified 12/27/24 07:48 Sulfa (Sulfonamide Allergy Unknown UNKNOWN Verified 12/27/24 07:48 Antibiotics) Vital Signs Vital Signs - 24 hr 02/01/25 17:20 02/01/25 17:30 02/01/25 17:30 Temperature 98.4 F 98.4 F Pulse Rate 77 77 Respiratory Rate 24 H 24 H Blood Pressure 180/81 H 180/81 H Pulse Oximetry 97 97 95 Oxygen Delivery Room Air Oxygen Flow Rate 02/01/25 18:00 02/01/25 19:55 02/01/25 20:00 Temperature 98.2 F Pulse Rate 80 75 Respiratory Rate 20 Blood Pressure 172/85 H Pulse Oximetry 94 Oxygen Delivery Room Air Oxygen Flow Rate 02/01/25 20:00 02/01/25 22:00 02/02/25 00:00 Temperature 97.9 F Pulse Rate 77 82 83 Respiratory Rate 24 H Blood Pressure 169/74 H Pulse Oximetry 96 Oxygen Delivery Oxygen Flow Rate 02/02/25 00:00 02/02/25 00:00 02/02/25 02:00 Temperature Pulse Rate 80 75 Respiratory Rate Blood Pressure Pulse Oximetry 93 Oxygen Delivery Nasal Cannula Oxygen Flow Rate 2 02/02/25 04:00 02/02/25 04:00 02/02/25 04:00 Temperature 98.6 F Pulse Rate 76 74 Respiratory Rate 20 Blood Pressure 168/82 H Pulse Oximetry 96 96 Oxygen Delivery Nasal Cannula Oxygen Flow Rate 2 02/02/25 04:25 02/02/25 04:33 02/02/25 06:00 Temperature Pulse Rate 74 76 76 Respiratory Rate 18 18 Blood Pressure Pulse Oximetry Oxygen Delivery Oxygen Flow Rate 02/02/25 07:40 02/02/25 08:00 02/02/25 10:00 Temperature 98.3 F Pulse Rate 78 82 80 Respiratory Rate 24 H Blood Pressure 153/79 H Pulse Oximetry 98 Oxygen Delivery Oxygen Flow Rate Exam 2 Narrative: Exam Narrative: Well developed well-nourished male in no acute distress Skin is warm and dry without rash Head normocephalic atraumatic Eyes normal sclerae and conjunctivae Mouth normal lips teeth and gums Neck no nodes no thyromegaly no carotid bruits Axillae no nodes Back no CVA tenderness Lungs symmetric and rare crackles bilaterally to auscultation and normal to percussion Heart regular rate and rhythm without rub or gallop Abdomen bowel sounds positive soft nontender, no HSM, masses, or bruits. Extremities no cyanosis, clubbing, or edema Pulses 2+ equal in radial arteries Psychological not anxious or depressed Neuro alert and oriented x3 motor 5/5 cranial nerves 2-12 intact reflexes 2+ and equal in the biceps and patellar tendons cerebellar normal rapid alternating movements Results Lab Results 02/02/25 04:35 02/02/25 04:35 Lab results: Most recent lab results Calcium 9.2 mg/dL (8.4-10.2) 02/02/25 04:35 Magnesium 2.0 mg/dL (1.6-2.3) 02/02/25 04:35
[2025-02-02 11:46] LABS: Basophils Percent Auto 0.2 % (0.2-1.2); Eosinophils Percent Auto 0.1 % (0-4.4); Immature Granulocyte Absolute 0.19 K/mm3 (0.00-0.031); Immature Granulocyte Percent A 1.3 % (0-0.5); Immature Reticulocyte Fraction 43.7 % (3.0-15.9); Lymphocytes Absolute Auto 0.47 K/mm3 (0.9-3.2); Lymphocytes Percent Auto 3.2 % (18.3-44.2); Mean Corpuscular HGB Conc 29.2 g/dl (32-36); Mean Corpuscular Hemoglobin 21.9 pg (26-34); Mean Corpuscular Volume 75.2 fl (80-100); Mean Platelet Volume 9.3 fl (7.4-10.4); Monocytes Absolute Auto 1.5 K/mm3 (0.1-0.6); Monocytes Percent Auto 10.3 % (2.6-8.5); Neutrophils Absolute Auto 12.7 K/mm3 (1.3-6.7); Neutrophils Percent Auto 84.9 % (45.5-73.1); Nucleated Red Blood Cells Perc 0.3 % (0.0-0.2); Platelet Count Result 281 k/mm3 (150-375); Red Blood Count 3.19 M/mm3 (4.6-6.20); Reticulocyte Hemoglobin Conten 19.7 pg (28.2-36.6); Reticulocyte Percent 2.07 % (0.7-4.3); Reticulocytes Absolute 0.07 10^6/uL (0.02-0.10); White Blood Count 14.9 K/mm3 (4.5-10.0)
[2025-02-02] MEDS: EPOETIN ALFA-EPBX 10,000 UNITS/ML VIAL 10000 UNITS SUB-Q (11:53)
[2025-02-02 12:33] LABS: Iron 15 ug/dL (49-181)
[2025-02-02 12:33] LABS: Sodium Urine Random 53 meq/L
[2025-02-02 12:43] LABS: Percent Iron Saturation 3 % (20-50)
[2025-02-02 12:47] LABS: Anisocytosis 2+; Hypochromasia 3+; Platelet Estimate Adequate (Adequate)
[2025-02-02 12:48] LABS: Ovalocytes 1+
[2025-02-02 12:49] LABS: Schistocytes None Seen
--- NOTE | 2025-02-02 13:51 | P.CONCA_ITS ---
Assessment and Plan Assessment and plan (1) Elevated troponin: Code(s): R79.89 - Other specified abnormal findings of blood chemistry Status: Acute Plan 1. Elevated troponin 2. JEAN-PIERRE on CKD 3. Acute on chronic anemia, requiring blood transfusions. Positive fecal occult. 4. Reported history of CHF 5. Hypertension PLAN: -Elevated troponins are flat. No ischemic EKG changes. No chest pain. Doubt ACS. Probably demand ischemia in setting of acute on chronic anemia requiring blood transfusions, JEAN-PIERRE on CKD. No ischemic evaluation needed at this time. -Echocardiogram ordered by primary team, will follow up on results. If no significant abnormality, then no additional cardiac workup recommended. -Management of hypertension as per Nephrology given advanced CKD. History of Present Illness History of Present Illness Consult date/time: 02/02/25 13:51 Requesting physician: Madalyn Kramer, [employer]NAGER Consult reason: Other (Elevated troponin) Reason For Visit: JEAN-PIERRE On Chronic Heart Failure/GI Bleeding Narrative: We are consulted for elevated troponin. This is a 79 year old male with history of CKD, hypertension, reported CHF, who was transferred from [facility] in [place] for shortness of breath. Found to have Hgb of 5.2 there. Had troponin of 331, 336 which their Cardiology team felt was due to demand ischemia. Patient given blood transfusions. Sent here for further management. Patient denies chest pain, shortness of breath. Workup here shows Hgb of 7.0, SCr is 4.2, troponins are 0.373, 0.367, 0.351. Stool occult positive. EKG shows sinus rhythm with incomplete right bundle branch block, PVC. No ischemic changes. Review of Systems 2 Review of Systems: All systems reviewed & are unremarkable except as noted in HPI and below (HPI) [facility] Past Medical History Medical History CKD (chronic kidney disease), stage IV CKD (chronic kidney disease), stage III Calcific tendonitis of left shoulder Hypertensive chronic kidney disease with stage 1 through stage 4 chronic kidney disease, or unspecified chronic kidney disease Wellness examination Unsteady gait Iron deficiency anemia H/O adenomatous polyp of colon CKD (chronic kidney disease) Prostate cancer Essential hypertension Cervical disc disease with myelopathy Neuropathy Surgical History Surgical History History of bilateral knee replacement Family History Family History Father Carcinoma of colon Social History Social History Social History: the patient recently became . He lives home alone. He does not have any children. The patient stated that he has not smoked in over 50 years. He does not use any marijuana or illicit drugs. The patient stated that he does not typically drink beer but if he has company he will drink beer and he does not usually count how many he drinks at 1 time. 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 The patient stated that he does not want to be intubated. Years smoked: 5 Smoking status: Never smoker Tobacco type: cigarettes Second hand tobacco smoke exposure: Yes Smoking end date: 11/22/69 Alcohol intake: former Drinks per week: 5 Alcohol use details: not regularly Substance use: never Substance use type: does not use Last use: 01/27/25 Do You Feel Safe in your Home?: Yes Lack of Transportation: No Lack of Food: Never True Current Housing: I Do Not Have Housing Concerned About Future Housing: No Difficulty Paying Gas/Electric Bills: No Difficulty Paying for Meds: No Currently Unemployed: No Education: High School Diploma/GED Difficulty w/ Childcare or Family Care: No Living arrangements: assisted living Occupation/Education: retired Gender identity (if verbalized by the patient): Male Sexual Orientation (if Verbalized by the Patient): Straight or Heterosexual Spiritual care concerns: No Meds Home Medications and Allergies Home Medications ?Medication ?Instructions ?Recorded ?Confirmed ?Type verapamil 240 mg 24 hr 240 mg PO BID #180 caps 03/24/24 02/01/25 Rx capsule,extended release losartan 100 mg tablet 100 mg PO DAILY #90 tabs 11/20/24 02/01/25 Rx metoprolol succinate 25 mg 25 mg PO DAILY #30 tabs 11/20/24 02/01/25 Rx tablet,extended release 24 hr acetaminophen 500 mg tablet 500 mg PO Q6H PRN pain 12/27/24 02/01/25 History (Tylenol Extra Strength) fluticasone propionate 50 1 spray intranasal DAILY #16 grams 01/31/25 02/01/25 Rx mcg/actuation nasal spray,suspension Allergies Allergy/AdvReac Type Severity Reaction Status Date / Time celecoxib Allergy Severe TONGUE Verified 12/27/24 07:48 SWELLED amlodipine Allergy Unknown Edema Verified 12/27/24 07:48 Penicillins Allergy Unknown UNKNOWN Verified 12/27/24 07:48 Sulfa (Sulfonamide Allergy Unknown UNKNOWN Verified 12/27/24 07:48 Antibiotics) Vital Signs Vital Signs - 24 hr 02/01/25 17:20 02/01/25 17:30 02/01/25 17:30 Temperature 36.9 C 36.9 C Pulse Rate 77 77 Respiratory Rate 24 H 24 H Blood Pressure 180/81 H 180/81 H Pulse Oximetry 97 97 95 Oxygen Delivery Room Air Oxygen Flow Rate 02/01/25 18:00 02/01/25 19:55 02/01/25 20:00 Temperature 36.8 C Pulse Rate 80 75 Respiratory Rate 20 Blood Pressure 172/85 H Pulse Oximetry 94 Oxygen Delivery Room Air Oxygen Flow Rate 02/01/25 20:00 02/01/25 22:00 02/02/25 00:00 Temperature 36.6 C Pulse Rate 77 82 83 Respiratory Rate 24 H Blood Pressure 169/74 H Pulse Oximetry 96 Oxygen Delivery Oxygen Flow Rate 02/02/25 00:00 02/02/25 00:00 02/02/25 02:00 Temperature Pulse Rate 80 75 Respiratory Rate Blood Pressure Pulse Oximetry 93 Oxygen Delivery Nasal Cannula Oxygen Flow Rate 2 02/02/25 04:00 02/02/25 04:00 02/02/25 04:00 Temperature 37.0 C Pulse Rate 76 74 Respiratory Rate 20 Blood Pressure 168/82 H Pulse Oximetry 96 96 Oxygen Delivery Nasal Cannula Oxygen Flow Rate 2 02/02/25 04:25 02/02/25 04:33 02/02/25 06:00 Temperature Pulse Rate 74 76 76 Respiratory Rate 18 18 Blood Pressure Pulse Oximetry Oxygen Delivery Oxygen Flow Rate 02/02/25 07:40 02/02/25 08:00 02/02/25 10:00 Temperature 36.8 C Pulse Rate 78 82 80 Respiratory Rate 24 H Blood Pressure 153/79 H Pulse Oximetry 98 Oxygen Delivery Oxygen Flow Rate 02/02/25 12:00 Temperature 36.4 C Pulse Rate 54 L Respiratory Rate 22 H Blood Pressure 163/83 H Pulse Oximetry 95 Oxygen Delivery Oxygen Flow Rate Exam 2 Const: General: comfortable and no acute distress HENMT: Mouth: Yes moist mucous membranes Eyes: General: appearance normal, both eyes and all related structures S clera: sclerae normal Resp: Effort & Inspection: normal respiratory effort Cardio: Rate: regular rate Rhythm: regular rhythm Skin: General skin exam: normal color Neuro: Speech: normal speech Psych: Mental Status: mental status grossly normal Affect: normal affect Results Labs and Meds 02/02/25 11:20 02/02/25 04:35 Lab results: Cardiac Enzymes 02/01/25 02/01/25 02/02/25 Range/Units 18:44 22:32 00:59 AST 19 (17-59) U/L Troponin I 0.373 H* 0.367 H* 0.351 H* (0.000-0.034) ng/mL 02/02/25 Range/Units 04:35 AST 19 (17-59) U/L Troponin I (0.000-0.034) ng/mL CBC 02/01/25 02/02/25 02/02/25 Range/Units 18:44 04:35 11:20 WBC 15.3 H 16.2 H 14.9 H (4.5-10.0) K/mm3 RBC 3.44 L 3.34 L 3.19 L (4.6-6.20) M/mm3 Hgb 7.5 L D 7.4 L 7.0 L (14.0-18.0) g/dL Hct 25.7 L 24.9 L 24.0 L (42.0-52.0) % Plt Count 299 277 281 (150-375) k/mm3 Lymph # (Auto) 0.55 L 0.71 L 0.47 L (0.9-3.2) K/mm3 [place] # (Auto) 1.9 H 1.8 H 1.5 H (0.1-0.6) K/mm3 Eos # (Auto) 0.0 0.0 0.0 (0-0.3) K/mm3 Baso # (Auto) 0.0 0.0 0.0 (0.0-0.1) K/mm3 Comprehensive Metabolic Panel 02/01/25 02/02/25 Range/Units 18:44 04:35 Sodium 137 138 (137-145) mmol/L Potassium 4.2 3.9 (3.4-5.0) mmol/L Chloride 107 107 (98-107) mmol/L Carbon Dioxide 12 L 16 L (22-30) mmol/L BUN 68 H D 71 H (9-20) mg/dL Creatinine 4.20 H 4.03 H (0.7-1.3) mg/dL Glucose 141 H 128 H (65-110) mg/dL Calcium 9.2 9.2 (8.4-10.2) mg/dL AST 19 19 (17-59) U/L ALT 19 17 (6-50) U/L Alkaline Phosphatase 70 67 (38-126) U/L Total Protein 7.0 6.0 L (6.3-8.2) g/dL Albumin 4.3 4.1 (3.5-5.1) g/dL Intake and Output 02/01/25 02/02/25 02/02/25 23:59 07:59 15:59 Intake Total 0 598 Output Total 450 275 Balance 0 -450 323 Intake: Oral 0 598 Output: Urine 450 275 Other: # Incontinent Voids 1 1 Patient Weight 02/02/25 23:59 Weight 101.7 kg
[2025-02-02 14:03] LABS: Total Protein Urine Random 487 mg/dL; Ur Ttl Prot Creatinine Ratio 8.85 mg/mg (0-0.20)
[2025-02-02 15:52] LABS: Folic Acid 15.3 ng/mL (2.76->20)
--- NOTE | 2025-02-02 17:42 | P.PNIM_ITS ---
Progress Note: A&P Assessment and Plan (1) Acute kidney injury superimposed on chronic kidney disease: Code(s): N17.9 - Acute kidney failure, unspecified; N18.9 - Chronic kidney disease, unspecified Status: Acute Assessment and Plan: * Follows up with as OP * Refuse to undergo dialysis * BUN 68 / creatinine 4.20, EGFR 14 * Continue to trend * nephrology consulted * will give 40 of Lasix now (2) CKD (chronic kidney disease), stage IV: Code(s): N18.4 - Chronic kidney disease, stage 4 (severe) Status: Acute Assessment and Plan: see above plan of care (3) Anemia: Code(s): D64.9 - Anemia, unspecified Status: Acute Assessment and Plan: * at [facility] patient was found to have a hemoglobin of 5.2, hematocrit 18.3 and was given 2 units PRBC while in the ED there * hemoglobin now 7.5, hematocrit 25.7 * continue to monitor for any signs of bleeding * check occult blood stool * possible worsening anemia due to his chronic kidney disease * transfuse if below hemoglobin less than 7/ hematocrit less than 21 (4) Essential hypertension: Code(s): I10 - Essential (primary) hypertension Status: Acute Assessment and Plan: * blood pressure ranging 154/87 to 180/81 * will hold losartan due to JEAN-PIERRE * verapamil 240 mg p.o. b.i.d. ordered * hydralazine ordered for systolic blood pressure greater than 180 Subjective Date/time seen: 02/02/25 17:42 Interval history: Patient reports he lives alone at halfway facility. Patient was recently admitted today in a hospital due to fall. Patient currently has worsening kidney functions. Patient denies having any renal disease but according to nephrology patient is seen by [facility] as outpatient. Nephrology is consulted. Patient family had having discussion about hospice as well. Cardiology evaluated the patient and will use possible demand ischemia in the setting of acute on chronic anemia requiring blood transfusions . Echocardiogram is pending. Review of Systems Review of Systems: All systems reviewed & are unremarkable except as noted in HPI and below Exam Narrative: General: In no acute distress, well nourished Head: atraumatic, no encephalopathy Eyes: PERRLA, sclera clear ENT: moist mucous membranes, nasal passages clear Neck: supple, no JVD, no adenopathy, trachea midline Cardiac: Normal S1 and S2. No murmur, gallops or friction rubs, peripheral pulses intact. Respiratory: Lungs course bilaterally with use of accessory muscles, no adventitious lung sounds, currently on room air Gastrointestinal: soft, non-distended, non-tender, normoactive bowel sounds. : voiding without difficulty. Extremities: moves all extremities well, no edema Skin: clean, dry, intact. No wounds or lesions. Neuro: Alert and oriented x4, cranial nerves intact, no neuro deficits. Psych: normal mood, normal affect, interactive Objective Data Vital Signs Vital Signs: Vital Signs - 24 hr 02/01/25 18:00 02/01/25 19:55 02/01/25 20:00 Temperature 98.2 F Pulse Rate 80 75 Respiratory Rate 20 Blood Pressure 172/85 H Pulse Oximetry 94 Oxygen Delivery Room Air Oxygen Flow Rate 02/01/25 20:00 02/01/25 22:00 02/02/25 00:00 Temperature 97.9 F Pulse Rate 77 82 83 Respiratory Rate 24 H Blood Pressure 169/74 H Pulse Oximetry 96 Oxygen Delivery Oxygen Flow Rate 02/02/25 00:00 02/02/25 00:00 02/02/25 02:00 Temperature Pulse Rate 80 75 Respiratory Rate Blood Pressure Pulse Oximetry 93 Oxygen Delivery Nasal Cannula Oxygen Flow Rate 2 02/02/25 04:00 02/02/25 04:00 02/02/25 04:00 Temperature 98.6 F Pulse Rate 76 74 Respiratory Rate 20 Blood Pressure 168/82 H Pulse Oximetry 96 96 Oxygen Delivery Nasal Cannula Oxygen Flow Rate 2 02/02/25 04:25 02/02/25 04:33 02/02/25 06:00 Temperature Pulse Rate 74 76 76 Respiratory Rate 18 18 Blood Pressure Pulse Oximetry Oxygen Delivery Oxygen Flow Rate 02/02/25 07:40 02/02/25 08:00 02/02/25 10:00 Temperature 98.3 F Pulse Rate 78 82 80 Respiratory Rate 24 H Blood Pressure 153/79 H Pulse Oximetry 98 Oxygen Delivery Oxygen Flow Rate 02/02/25 12:00 02/02/25 12:00 02/02/25 14:00 Temperature 97.6 F Pulse Rate 54 L 53 L 65 Respiratory Rate 22 H Blood Pressure 163/83 H Pulse Oximetry 95 Oxygen Delivery Oxygen Flow Rate 02/02/25 16:00 Temperature 97.6 F Pulse Rate 54 L Respiratory Rate 26 H Blood Pressure 144/77 H Pulse Oximetry 94 Oxygen Delivery Oxygen Flow Rate Intake/Output Intake/Output: Intake & Output 01/30/25 01/31/25 02/01/25 02/02/25 23:59 23:59 23:59 23:59 Intake Total 0 1988 Output Total 725 Balance 0 1263 Meds/Results Medications: Active Medications Generic Name Dose Route Start Last Admin Trade Name Freq PRN Reason Stop Dose Admin Acetaminophen 650 mg 02/01/25 18:21 02/01/25 20:13 Acetaminophen 325 Mg Tablet PO 650 mg Q4H PRN Administration Mild Pain (1-3) or Fever Amlodipine Besylate 5 mg 02/03/25 09:00 Amlodipine Besylate 5 Mg Tablet PO DAILY LIZ Epoetin Juan-epbx 10,000 units 02/02/25 12:00 02/02/25 11:53 Epoetin Juan-Epbx 10,000 Units/Ml Vial SUB-Q 10,000 units MOWEFR@09 LIZ Administration Fluticasone Propionate 1 spray 02/02/25 09:00 02/02/25 08:46 Fluticasone Propionate 0.05% Na Spr 16 Gm Btl (*Bkc) NASAL 1 spray DAILY LIZ Administration Hydralazine HCl 10 mg 02/01/25 21:41 Hydralazine Hcl 20 Mg/Ml Vial IV PUSH Q8H PRN Blood Pressure - High Ondansetron HCl 4 mg 02/01/25 18:21 Ondansetron Inj 4 Mg/2 Ml Vial IV PUSH Q6H PRN Nausea And Vomiting Perflutren Lipid Microsphere 0 ml 02/01/25 21:34 Perflutren Lipid Microspheres 1.5 Ml Vial Diluted To 10 Ml Total Volume IV PUSH 02/04/25 21:34 ONCE PRN adequate visualization Protocol Verapamil HCl 240 mg 02/01/25 21:45 02/02/25 08:45 Verapamil Hcl Er 240 Mg Tablet.Er PO 240 mg Q12HR LIZ Administration Radiology Results: ITS Impressions Chest X-Ray 02/01/25 18:45 IMPRESSION: Pneumonitis seen bilaterally. Pulmonary edema is not excluded. Labs Labs: Laboratory Results - last 24 hr 02/01/25 02/01/25 02/01/25 18:44 18:44 22:23 WBC 15.3 H RBC 3.44 L Hgb 7.5 L D Hct 25.7 L MCV 74.7 L MCH 21.8 L MCHC 29.2 L RDW 19.5 H Plt Count 299 MPV 8.9 Immature Gran % (Auto) 1.1 H Neut % (Auto) 82.9 H Lymph % (Auto) 3.6 L [place] % (Auto) 12.2 H Eos % (Auto) 0.1 Baso % (Auto) 0.1 L Lymph # (Auto) 0.55 L [place] # (Auto) 1.9 H Eos # (Auto) 0.0 Baso # (Auto) 0.0 Abs Immat Gran (auto) 0.17 H Absolute Neuts (auto) 12.7 H Absolute Nucleated RBC 0.030 H Band Neutrophils % Not Reportable Nucleated RBC % 0.2 Platelet Estimate Adequate Hypochromasia 1+ Anisocytosis 1+ Microcytosis 1+ Ovalocytes 1+ Schistocytes None seen Absolute Retic Percent Retic Immature Retic Fraction Retic Hgb Content Sodium 137 Potassium 4.2 Chloride 107 Carbon Dioxide 12 L Anion Gap 18 H BUN 68 H D Creatinine 4.20 H Estim Creat Clear Calc 17 Estimated GFR 14 L Glucose 141 H Hemoglobin A1c 5.3 Calcium 9.2 Magnesium Cancelled 2.1 Iron TIBC % Saturation Ferritin Total Bilirubin 0.8 AST 19 ALT 19 Alkaline Phosphatase 70 Troponin I 0.373 H* NT-Pro-B Natriuret Pep 73786 H Total Protein 7.0 Albumin 4.3 Vitamin B12 Folate TSH 1.850 Urine Color Urine Appearance Urine pH Ur Specific [place] Urine Protein Urine Glucose (UA) Urine Ketones Ur Blood (Man) Urine Nitrate Urine Bilirubin Urine Urobilinogen Leukocyte Esterase Rfl Urine RBC Urine WBC Ur Squamous Epith Cells Urine Bacteria Urine Casts U Random Total Protein Ur Random Sodium Urine Creatinine Protein/Creat Ratio 2 Stl Occult Blood (IFOB) Influenza A (RT-PCR) Negative Influenza B (RT-PCR) Negative RSV (RT-PCR) Negative SARS-CoV-2 RNA (RT-PCR) Negative 02/01/25 02/01/25 02/02/25 22:32 23:44 00:59 WBC RBC Hgb Hct MCV MCH MCHC RDW Plt Count MPV Immature Gran % (Auto) Neut % (Auto) Lymph % (Auto) [place] % (Auto) Eos % (Auto) Baso % (Auto) Lymph # (Auto) [place] # (Auto) Eos # (Auto) Baso # (Auto) Abs Immat Gran (auto) Absolute Neuts (auto) Absolute Nucleated RBC Band Neutrophils % Nucleated RBC % Platelet Estimate Hypochromasia Anisocytosis Microcytosis Ovalocytes Schistocytes Absolute Retic Percent Retic Immature Retic Fraction Retic Hgb Content Sodium Potassium Chloride Carbon Dioxide Anion Gap BUN Creatinine Estim Creat Clear Calc Estimated GFR Glucose Hemoglobin A1c Calcium Magnesium Iron TIBC % Saturation Ferritin Total Bilirubin AST ALT Alkaline Phosphatase Troponin I 0.367 H* 0.351 H* NT-Pro-B Natriuret Pep Total Protein Albumin Vitamin B12 Folate TSH Urine Color Urine Appearance Urine pH Ur Specific [place] Urine Protein Urine Glucose (UA) Urine Ketones Ur Blood (Man) Urine Nitrate Urine Bilirubin Urine Urobilinogen Leukocyte Esterase Rfl Urine RBC Urine WBC Ur Squamous Epith Cells Urine Bacteria Urine Casts U Random Total Protein Ur Random Sodium Urine Creatinine Protein/Creat Ratio 2 Stl Occult Blood (IFOB) Positive H Influenza A (RT-PCR) Influenza B (RT-PCR) RSV (RT-PCR) SARS-CoV-2 RNA (RT-PCR) 02/02/25 02/02/25 02/02/25 04:35 05:44 11:20 WBC 16.2 H 14.9 H RBC 3.34 L 3.19 L Hgb 7.4 L 7.0 L Hct 24.9 L 24.0 L MCV 74.6 L 75.2 L MCH 22.2 L 21.9 L MCHC 29.7 L 29.2 L RDW 19.0 H 19.0 H Plt Count 277 281 MPV 8.5 9.3 Immature Gran % (Auto) 1.5 H 1.3 H Neut % (Auto) 82.7 H 84.9 H Lymph % (Auto) 4.4 L 3.2 L [place] % (Auto) 11.2 H 10.3 H Eos % (Auto) 0.1 0.1 Baso % (Auto) 0.1 L 0.2 Lymph # (Auto) 0.71 L 0.47 L [place] # (Auto) 1.8 H 1.5 H Eos # (Auto) 0.0 0.0 Baso # (Auto) 0.0 0.0 Abs Immat Gran (auto) 0.24 H 0.19 H Absolute Neuts (auto) 13.4 H 12.7 H Absolute Nucleated RBC 0.040 H 0.040 H Band Neutrophils % 0 Not Reportable Nucleated RBC % 0.2 0.3 H Platelet Estimate Adequate Adequate Hypochromasia 1+ 3+ Anisocytosis 1+ 2+ Microcytosis Ovalocytes 1+ 1+ Schistocytes None seen None seen Absolute Retic 0.07 Percent Retic Immature Retic Fraction Retic Hgb Content Sodium 138 Potassium 3.9 Chloride 107 Carbon Dioxide 16 L Anion Gap 15 H BUN 71 H Creatinine 4.03 H Estim Creat Clear Calc 17 Estimated GFR 14 L Glucose 128 H Hemoglobin A1c Calcium 9.2 Magnesium 2.0 Iron TIBC % Saturation Ferritin Total Bilirubin 0.8 AST 19 ALT 17 Alkaline Phosphatase 67 Troponin I NT-Pro-B Natriuret Pep Total Protein 6.0 L Albumin 4.1 Vitamin B12 Folate TSH Urine Color Yellow Urine Appearance Clear Urine pH 5.0 Ur Specific [place] 1.014 Urine Protein 3+ H Urine Glucose (UA) Negative Urine Ketones Negative Ur Blood (Man) Negative Urine Nitrate Negative Urine Bilirubin Negative Urine Urobilinogen 0.2 Leukocyte Esterase Rfl Negative Urine RBC 0-2 Urine WBC 0-5 Ur Squamous Epith Cells None seen Urine Bacteria None seen Urine Casts 0-2 U Random Total Protein Ur Random Sodium Urine Creatinine Protein/Creat Ratio 2 Stl Occult Blood (IFOB) Influenza A (RT-PCR) Influenza B (RT-PCR) RSV (RT-PCR) SARS-CoV-2 RNA (RT-PCR) 02/02/25 02/02/25 02/02/25 11:20 11:20 11:20 WBC RBC Hgb Hct MCV MCH MCHC RDW Plt Count MPV Immature Gran % (Auto) Neut % (Auto) Lymph % (Auto) [place] % (Auto) Eos % (Auto) Baso % (Auto) Lymph # (Auto) [place] # (Auto) Eos # (Auto) Baso # (Auto) Abs Immat Gran (auto) Absolute Neuts (auto) Absolute Nucleated RBC Band Neutrophils % Nucleated RBC % Platelet Estimate Hypochromasia Anisocytosis Microcytosis Ovalocytes Schistocytes Absolute Retic Cancelled Percent Retic 2.07 Cancelled Immature Retic Fraction 43.7 H Cancelled Retic Hgb Content 19.7 L Sodium Potassium Chloride Carbon Dioxide Anion Gap BUN Creatinine Estim Creat Clear Calc Estimated GFR Glucose Hemoglobin A1c Calcium Magnesium Iron TIBC % Saturation Ferritin Total Bilirubin AST ALT Alkaline Phosphatase Troponin I NT-Pro-B Natriuret Pep Total Protein Albumin Vitamin B12 Folate TSH Urine Color Urine Appearance Urine pH Ur Specific [place] Urine Protein Urine Glucose (UA) Urine Ketones Ur Blood (Man) Urine Nitrate Urine Bilirubin Urine Urobilinogen Leukocyte Esterase Rfl Urine RBC Urine WBC Ur Squamous Epith Cells Urine Bacteria Urine Casts U Random Total Protein Ur Random Sodium Urine Creatinine Protein/Creat Ratio 2 Stl Occult Blood (IFOB) Influenza A (RT-PCR) Influenza B (RT-PCR) RSV (RT-PCR) SARS-CoV-2 RNA (RT-PCR) 02/02/25 02/02/25 11:20 11:44 WBC RBC Hgb Hct MCV MCH MCHC RDW Plt Count MPV Immature Gran % (Auto) Neut % (Auto) Lymph % (Auto) [place] % (Auto) Eos % (Auto) Baso % (Auto) Lymph # (Auto) [place] # (Auto) Eos # (Auto) Baso # (Auto) Abs Immat Gran (auto) Absolute Neuts (auto) Absolute Nucleated RBC Band Neutrophils % Nucleated RBC % Platelet Estimate Hypochromasia Anisocytosis Microcytosis Ovalocytes Schistocytes Absolute Retic Percent Retic Immature Retic Fraction Retic Hgb Content Cancelled Sodium Potassium Chloride Carbon Dioxide Anion Gap BUN Creatinine Estim Creat Clear Calc Estimated GFR Glucose Hemoglobin A1c Calcium Magnesium Iron 15 L TIBC 435 % Saturation 3 L Ferritin 13.20 Total Bilirubin AST ALT Alkaline Phosphatase Troponin I NT-Pro-B Natriuret Pep Total Protein Albumin Vitamin B12 483.0 Folate 15.3 TSH Urine Color Urine Appearance Urine pH Ur Specific [place] Urine Protein Urine Glucose (UA) Urine Ketones Ur Blood (Man) Urine Nitrate Urine Bilirubin Urine Urobilinogen Leukocyte Esterase Rfl Urine RBC Urine WBC Ur Squamous Epith Cells Urine Bacteria Urine Casts U Random Total Protein 487 Ur Random Sodium 53 Urine Creatinine 55.0 Protein/Creat Ratio 2 8.85 H Stl Occult Blood (IFOB) Influenza A (RT-PCR) Influenza B (RT-PCR) RSV (RT-PCR) SARS-CoV-2 RNA (RT-PCR) Quality VTE Prophylaxis VTE prophylaxis: mechanical ordered Hospitalist MIPS Advance Care Plan I have confirmed that the patient's Advanced Care Plan is present, code status is documented, or surrogate decision maker is listed in patient medical record.: Yes Medication Reconciliation I have utilized all available resources to obtain, update and review the patients current medications (includes all prescriptions, OTC, herbals, cannabis, and nutritional supplements).: Yes
[2025-02-03] VITALS (13 sets, daily range): BP systolic 146–188; BP diastolic 70–99; PULSE 62–82; RESP 18–28; TEMP 36.4–36.8; O2SAT 91–100
[2025-02-03] MEDS: ACETAMINOPHEN 325 MG TABLET 650 MG PO ×2 (04:10→23:55)
[2025-02-03 05:13] LABS: Basophils Percent Auto 0.2 % (0.2-1.2); Eosinophils Absolute Auto 0.1 K/mm3 (0-0.3); Eosinophils Percent Auto 0.8 % (0-4.4); Immature Granulocyte Absolute 0.19 K/mm3 (0.00-0.031); Immature Granulocyte Percent A 1.3 % (0-0.5); Lymphocytes Absolute Auto 0.96 K/mm3 (0.9-3.2); Lymphocytes Percent Auto 6.4 % (18.3-44.2); Mean Corpuscular HGB Conc 29.6 g/dl (32-36); Mean Corpuscular Hemoglobin 22.3 pg (26-34); Mean Corpuscular Volume 75.4 fl (80-100); Mean Platelet Volume 9.1 fl (7.4-10.4); Monocytes Absolute Auto 1.9 K/mm3 (0.1-0.6); Monocytes Percent Auto 12.9 % (2.6-8.5); Neutrophils Absolute Auto 11.7 K/mm3 (1.3-6.7); Neutrophils Percent Auto 78.4 % (45.5-73.1); Nucleated Red Blood Cells Perc 0.1 % (0.0-0.2); Platelet Count Result 259 k/mm3 (150-375); Red Blood Count 3.05 M/mm3 (4.6-6.20); Red Cell Distribution Width 19.4 % (11.5-14.5); White Blood Count 14.9 K/mm3 (4.5-10.0)
[2025-02-03 05:41] LABS: Hemoglobin 6.8 g/dL (14.0-18.0)
[2025-02-03 05:42] LABS: Anisocytosis 1+; Band Neutrophils Percent 0 % (0-6); Hypochromasia 2+; Ovalocytes 1+; Platelet Estimate Adequate (Adequate); Schistocytes None Seen
[2025-02-03 05:50] LABS: Alanine Aminotransferase 16 U/L (6-50); Albumin Level 3.8 g/dL (3.5-5.1); Alkaline Phosphatase 45 U/L (38-126); Anion Gap 14 mmol/L (4-12); Aspartate Amino Transferase 30 U/L (17-59); Bilirubin,Total 0.7 mg/dL (0.2-1.3); Blood Urea Nitrogen 72 mg/dL (9-20); Calcium 8.8 mg/dL (8.4-10.2); Carbon Dioxide 16 mmol/L (22-30); Chloride 105 mmol/L (98-107); Estimated CRCL calculation 16 ml/min; Estimated Glomerular Filt Rate 15; Glucose 109 mg/dL (65-110); Magnesium 2.2 mg/dL (1.6-2.3); Sodium 135 mmol/L (137-145)
[2025-02-03] MEDS: VERAPAMIL HCL ER 240 MG TABLET.ER PO ×2 (09:29→20:12)
[2025-02-03] MEDS: FLUTICASONE PROPIONATE 0.05% NA SPR 16 GM BTL (*BKC) 1 SPRAY NASAL (09:29)
[2025-02-03] MEDS: amLODIPine BESYLATE 5 MG TABLET PO (09:29)
--- NOTE | 2025-02-03 10:35 | PM.IMPN ---
Progress Note: A&P Assessment and Plan (1) Acute kidney injury superimposed on chronic kidney disease: Code(s): N17.9 - Acute kidney failure, unspecified; N18.9 - Chronic kidney disease, unspecified Status: Acute Assessment and Plan: Follows up with as OP Refuse to undergo dialysis BUN 68 / creatinine 4.20, EGFR 14 Continue to trend nephrology consulted will give 40 of Lasix now (2) CKD (chronic kidney disease), stage IV: Code(s): N18.4 - Chronic kidney disease, stage 4 (severe) Status: Acute Assessment and Plan: see above plan of care (3) Anemia: Code(s): D64.9 - Anemia, unspecified Status: Acute Assessment and Plan: at [facility] patient was found to have a hemoglobin of 5.2, hematocrit 18.3 and was given 2 units PRBC while in the ED there hemoglobin now 7.5, hematocrit 25.7 continue to monitor for any signs of bleeding check occult blood stool possible worsening anemia due to his chronic kidney disease transfuse if below hemoglobin less than 7/ hematocrit less than 21 (4) Essential hypertension: Code(s): I10 - Essential (primary) hypertension Status: Acute Assessment and Plan: blood pressure ranging 154/87 to 180/81 will hold losartan due to JEAN-PIERRE verapamil 240 mg p.o. b.i.d. ordered hydralazine ordered for systolic blood pressure greater than 180 Subjective Date/time seen: 02/03/25 10:35 Interval history: Patient hemoglobin 6.8 and ordered 1 unit PRBC. Patient is confused and unable to decide between hospice versus dialysis. Ordered CT head her confusion and CT chest abdomen and pelvis for leukocytosis. Ordered blood culture. Started empiric antibiotic ceftriaxone and doxycycline for possible pneumonitis Review of Systems Review of Systems: All systems reviewed & are unremarkable except as noted in HPI and below Exam Narrative: General: In no acute distress, well nourished Head: atraumatic, no encephalopathy Eyes: PERRLA, sclera clear ENT: moist mucous membranes, nasal passages clear Neck: supple, no JVD, no adenopathy, trachea midline Cardiac: Normal S1 and S2. No murmur, gallops or friction rubs, peripheral pulses intact. Respiratory: Lungs course bilaterally with use of accessory muscles, no adventitious lung sounds, currently on room air Gastrointestinal: soft, non-distended, non-tender, normoactive bowel sounds. : voiding without difficulty. Extremities: moves all extremities well, no edema Skin: clean, dry, intact. No wounds or lesions. Neuro: Alert and oriented x4, cranial nerves intact, no neuro deficits. Psych: normal mood, normal affect, interactive Objective Data Vital Signs Vital Signs: Vital Signs - 24 hr 02/02/25 12:00 02/02/25 12:00 02/02/25 14:00 Temperature 97.6 F Pulse Rate 54 L 53 L 65 Respiratory Rate 22 H Blood Pressure 163/83 H Pulse Oximetry 95 Oxygen Delivery 02/02/25 16:00 02/02/25 16:00 02/02/25 18:00 Temperature 97.6 F Pulse Rate 54 L 73 76 Respiratory Rate 26 H Blood Pressure 144/77 H Pulse Oximetry 94 Oxygen Delivery 02/02/25 19:43 02/02/25 20:00 02/02/25 20:00 Temperature 97.4 F L Pulse Rate 80 79 Respiratory Rate 26 H Blood Pressure 155/75 H Pulse Oximetry 96 Oxygen Delivery Room Air 02/02/25 22:00 02/03/25 00:00 02/03/25 00:00 Temperature Pulse Rate 76 77 Respiratory Rate Blood Pressure Pulse Oximetry Oxygen Delivery Room Air 02/03/25 00:32 02/03/25 02:00 02/03/25 04:00 Temperature 97.6 F 97.6 F Pulse Rate 62 79 73 Respiratory Rate 26 H 26 H Blood Pressure 146/85 H 169/85 H Pulse Oximetry 98 99 Oxygen Delivery 02/03/25 04:00 02/03/25 04:00 02/03/25 06:00 Temperature Pulse Rate 73 66 Respiratory Rate Blood Pressure Pulse Oximetry Oxygen Delivery Room Air 02/03/25 07:37 Temperature 97.7 F Pulse Rate 71 Respiratory Rate 20 Blood Pressure 160/83 H Pulse Oximetry 96 Oxygen Delivery Intake/Output Intake/Output: Intake & Output 01/31/25 02/01/25 02/02/25 02/03/25 23:59 23:59 23:59 23:59 Intake Total 0 1988 240 Output Total 725 1575 Balance 0 1263 -1335 Meds/Results Medications: Active Medications Generic Name Dose Route Start Last Admin Trade Name Freq PRN Reason Stop Dose Admin Acetaminophen 650 mg 02/01/25 18:21 02/03/25 04:10 Acetaminophen 325 Mg Tablet PO 650 mg Q4H PRN Administration Mild Pain (1-3) or Fever Amlodipine Besylate 5 mg 02/03/25 09:00 02/03/25 09:29 Amlodipine Besylate 5 Mg Tablet PO 5 mg DAILY LIZ Administration Epoetin Juan-epbx 10,000 units 02/02/25 12:00 02/02/25 11:53 Epoetin Juan-Epbx 10,000 Units/Ml Vial SUB-Q 10,000 units MOWEFR@09 LIZ Administration Fluticasone Propionate 1 spray 02/02/25 09:00 02/03/25 09:29 Fluticasone Propionate 0.05% Na Spr 16 Gm Btl (*Bkc) NASAL 1 spray DAILY LIZ Administration Hydralazine HCl 10 mg 02/01/25 21:41 Hydralazine Hcl 20 Mg/Ml Vial IV PUSH Q8H PRN Blood Pressure - High Sodium Chloride 250 mls @ 30 mls/hr 02/03/25 07:57 Normal Saline Iv IV CONT 02/03/25 16:16 .Q8H20M STA Ondansetron HCl 4 mg 02/01/25 18:21 Ondansetron Inj 4 Mg/2 Ml Vial IV PUSH Q6H PRN Nausea And Vomiting Perflutren Lipid Microsphere 0 ml 02/01/25 21:34 Perflutren Lipid Microspheres 1.5 Ml Vial Diluted To 10 Ml Total Volume IV PUSH 02/04/25 21:34 ONCE PRN adequate visualization Protocol Verapamil HCl 240 mg 02/01/25 21:45 02/03/25 09:29 Verapamil Hcl Er 240 Mg Tablet.Er PO 240 mg Q12HR LIZ Administration Radiology Results: ITS Impressions Chest X-Ray 02/01/25 18:45 IMPRESSION: Pneumonitis seen bilaterally. Pulmonary edema is not excluded. Labs Labs: Laboratory Results - last 24 hr 02/02/25 02/02/25 02/02/25 11:20 11:20 11:20 WBC 14.9 H RBC 3.19 L Hgb 7.0 L Hct 24.0 L MCV 75.2 L MCH 21.9 L MCHC 29.2 L RDW 19.0 H Plt Count 281 MPV 9.3 Immature Gran % (Auto) 1.3 H Neut % (Auto) 84.9 H Lymph % (Auto) 3.2 L [place] % (Auto) 10.3 H Eos % (Auto) 0.1 Baso % (Auto) 0.2 Lymph # (Auto) 0.47 L [place] # (Auto) 1.5 H Eos # (Auto) 0.0 Baso # (Auto) 0.0 Abs Immat Gran (auto) 0.19 H Absolute Neuts (auto) 12.7 H Absolute Nucleated RBC 0.040 H Band Neutrophils % Not Reportable Nucleated RBC % 0.3 H Platelet Estimate Adequate Hypochromasia 3+ Anisocytosis 2+ Ovalocytes 1+ Schistocytes None seen Absolute Retic 0.07 Cancelled Percent Retic 2.07 Cancelled Immature Retic Fraction 43.7 H Retic Hgb Content Sodium Potassium Chloride Carbon Dioxide Anion Gap BUN Creatinine Estim Creat Clear Calc Estimated GFR Glucose Calcium Magnesium Iron TIBC % Saturation Ferritin Total Bilirubin AST ALT Alkaline Phosphatase Total Protein Albumin Vitamin B12 Folate U Random Total Protein Ur Random Sodium Urine Creatinine Protein/Creat Ratio 2 Blood Type Antibody Screen Crossmatch 02/02/25 02/02/25 02/02/25 11:20 11:20 11:44 WBC RBC Hgb Hct MCV MCH MCHC RDW Plt Count MPV Immature Gran % (Auto) Neut % (Auto) Lymph % (Auto) [place] % (Auto) Eos % (Auto) Baso % (Auto) Lymph # (Auto) [place] # (Auto) Eos # (Auto) Baso # (Auto) Abs Immat Gran (auto) Absolute Neuts (auto) Absolute Nucleated RBC Band Neutrophils % Nucleated RBC % Platelet Estimate Hypochromasia Anisocytosis Ovalocytes Schistocytes Absolute Retic Percent Retic Immature Retic Fraction Cancelled Retic Hgb Content 19.7 L Cancelled Sodium Potassium Chloride Carbon Dioxide Anion Gap BUN Creatinine Estim Creat Clear Calc Estimated GFR Glucose Calcium Magnesium Iron 15 L TIBC 435 % Saturation 3 L Ferritin 13.20 Total Bilirubin AST ALT Alkaline Phosphatase Total Protein Albumin Vitamin B12 483.0 Folate 15.3 U Random Total Protein 487 Ur Random Sodium 53 Urine Creatinine 55.0 Protein/Creat Ratio 2 8.85 H Blood Type Antibody Screen Crossmatch 02/03/25 02/03/25 04:41 08:13 WBC 14.9 H RBC 3.05 L Hgb 6.8 L* Hct 23.0 L MCV 75.4 L MCH 22.3 L MCHC 29.6 L RDW 19.4 H Plt Count 259 MPV 9.1 Immature Gran % (Auto) 1.3 H Neut % (Auto) 78.4 H Lymph % (Auto) 6.4 L [place] % (Auto) 12.9 H Eos % (Auto) 0.8 Baso % (Auto) 0.2 Lymph # (Auto) 0.96 [place] # (Auto) 1.9 H Eos # (Auto) 0.1 Baso # (Auto) 0.0 Abs Immat Gran (auto) 0.19 H Absolute Neuts (auto) 11.7 H Absolute Nucleated RBC 0.020 H Band Neutrophils % 0 Nucleated RBC % 0.1 Platelet Estimate Adequate Hypochromasia 2+ Anisocytosis 1+ Ovalocytes 1+ Schistocytes None seen Absolute Retic Percent Retic Immature Retic Fraction Retic Hgb Content Sodium 135 L Potassium 4.0 Chloride 105 Carbon Dioxide 16 L Anion Gap 14 H BUN 72 H Creatinine 3.80 H Estim Creat Clear Calc 16 Estimated GFR 15 L Glucose 109 Calcium 8.8 Magnesium 2.2 Iron TIBC % Saturation Ferritin Total Bilirubin 0.7 AST 30 ALT 16 Alkaline Phosphatase 45 Total Protein 6.0 L Albumin 3.8 Vitamin B12 Folate U Random Total Protein Ur Random Sodium Urine Creatinine Protein/Creat Ratio 2 Blood Type O Positive Antibody Screen Negative Crossmatch See Detail Quality VTE Prophylaxis VTE prophylaxis: mechanical ordered Hospitalist MIPS Advance Care Plan I have confirmed that the patient's Advanced Care Plan is present, code status is documented, or surrogate decision maker is listed in patient medical record.: Yes Medication Reconciliation I have utilized all available resources to obtain, update and review the patients current medications (includes all prescriptions, OTC, herbals, cannabis, and nutritional supplements).: Yes
--- NOTE | 2025-02-03 11:23 | PM.PNNEP ---
Progress Note: A&P Assessment and Plan (1) Acute kidney injury superimposed on chronic kidney disease: Code(s): N17.9 - Acute kidney failure, unspecified; N18.9 - Chronic kidney disease, unspecified Status: Acute Assessment and Plan: The patient has chronic kidney disease. This is due to hypertension. His baseline creatinine runs around 3.5. on admission his creatinine jerel to 4.2 urine sodium is 53 today the creatinine has fallen to 3.8 etiology of the acute kidney injury is likely related to his pulmonary status. I do not think he was dehydrated (2) Anemia: Code(s): D64.9 - Anemia, unspecified Status: Acute Assessment and Plan: His hemoglobin is down to 6.8. He is going to get a unit of blood today. (3) Benign hypertension with chronic kidney disease: Code(s): I12.9 - Hypertensive chronic kidney disease with stage 1 through stage 4 chronic kidney disease, or unspecified chronic kidney disease Status: Acute Assessment and Plan: Blood pressure is a bit high. He is on metoprolol, losartan, and verapamil at home. His pulse is 80. Losartan is on hold. He is on metoprolol from home he is newly on amlodipine. Today his pressure is 140-160 instead of 160-180 so will keep the same medications for now so far he is not swelling so we can continue the amlodipine for now Subjective Date/time seen: 02/03/25 11:23 Interval history: patient feels better today. He looks less dyspnea never did complain of any shortness of breath he ate a good breakfast Review of Systems Cardiovascular: Cardiovascular: Reports no additional cardiovascular complaints Respiratory: Respiratory: Reports no additional respiratory complaints Gastrointestinal: Gastrointestinal: Reports no additional gastrointestinal complaints Genitourinary: Genitourinary: Reports no additional male genitourinary complaints Exam Narrative: WDWN in NAD skin no rash head ncat lungs clear cor reg no rub abd BS+ nontender and soft ext no edema. Objective Data Vital Signs Vital Signs: Vital Signs - 24 hr 02/02/25 12:00 02/02/25 12:00 02/02/25 14:00 Temperature 97.6 F Pulse Rate 54 L 53 L 65 Respiratory Rate 22 H Blood Pressure 163/83 H Pulse Oximetry 95 Oxygen Delivery 02/02/25 16:00 02/02/25 16:00 02/02/25 18:00 Temperature 97.6 F Pulse Rate 54 L 73 76 Respiratory Rate 26 H Blood Pressure 144/77 H Pulse Oximetry 94 Oxygen Delivery 02/02/25 19:43 02/02/25 20:00 02/02/25 20:00 Temperature 97.4 F L Pulse Rate 80 79 Respiratory Rate 26 H Blood Pressure 155/75 H Pulse Oximetry 96 Oxygen Delivery Room Air 02/02/25 22:00 02/03/25 00:00 02/03/25 00:00 Temperature Pulse Rate 76 77 Respiratory Rate Blood Pressure Pulse Oximetry Oxygen Delivery Room Air 02/03/25 00:32 02/03/25 02:00 02/03/25 04:00 Temperature 97.6 F 97.6 F Pulse Rate 62 79 73 Respiratory Rate 26 H 26 H Blood Pressure 146/85 H 169/85 H Pulse Oximetry 98 99 Oxygen Delivery 02/03/25 04:00 02/03/25 04:00 02/03/25 06:00 Temperature Pulse Rate 73 66 Respiratory Rate Blood Pressure Pulse Oximetry Oxygen Delivery Room Air 02/03/25 07:37 Temperature 97.7 F Pulse Rate 71 Respiratory Rate 20 Blood Pressure 160/83 H Pulse Oximetry 96 Oxygen Delivery Intake/Output Intake/Output: Intake & Output 01/31/25 02/01/25 02/02/25 02/03/25 23:59 23:59 23:59 23:59 Intake Total 0 1988 240 Output Total 725 1575 Balance 0 1263 -1335 Meds/Results Medications: Active Medications Generic Name Dose Route Start Last Admin Trade Name Freq PRN Reason Stop Dose Admin Acetaminophen 650 mg 02/01/25 18:21 02/03/25 04:10 Acetaminophen 325 Mg Tablet PO 650 mg Q4H PRN Administration Mild Pain (1-3) or Fever Amlodipine Besylate 5 mg 02/03/25 09:00 02/03/25 09:29 Amlodipine Besylate 5 Mg Tablet PO 5 mg DAILY [facility] Administration Doxycycline Hyclate 100 mg 02/03/25 21:00 Doxycycline Hyclate 100 Mg Tablet PO 02/10/25 20:59 Q12HR [facility] Epoetin Juan-epbx 10,000 units 02/02/25 12:00 02/02/25 11:53 Epoetin Juan-Epbx 10,000 Units/Ml Vial SUB-Q 10,000 units MOWEFR@09 LIZ Administration Fluticasone Propionate 1 spray 02/02/25 09:00 02/03/25 09:29 Fluticasone Propionate 0.05% Na Spr 16 Gm Btl (*Bkc) NASAL 1 spray DAILY LIZ Administration Hydralazine HCl 10 mg 02/01/25 21:41 Hydralazine Hcl 20 Mg/Ml Vial IV PUSH Q8H PRN Blood Pressure - High Sodium Chloride 250 mls @ 30 mls/hr 02/03/25 07:57 Normal Saline Iv IV CONT 02/03/25 16:16 .Q8H20M STA Ceftriaxone Sodium 2 gm in 100 mls @ 200 mls/hr 02/03/25 10:45 Rocephin 2 Gm/Ns 100 Ml IVPB DAILY LIZ Ondansetron HCl 4 mg 02/01/25 18:21 Ondansetron Inj 4 Mg/2 Ml Vial IV PUSH Q6H PRN Nausea And Vomiting Perflutren Lipid Microsphere 0 ml 02/01/25 21:34 Perflutren Lipid Microspheres 1.5 Ml Vial Diluted To 10 Ml Total Volume IV PUSH 02/04/25 21:34 ONCE PRN adequate visualization Protocol Verapamil HCl 240 mg 02/01/25 21:45 02/03/25 09:29 Verapamil Hcl Er 240 Mg Tablet.Er PO 240 mg Q12HR LIZ Administration Radiology Results: ITS Impressions Chest X-Ray 02/01/25 18:45 IMPRESSION: Pneumonitis seen bilaterally. Pulmonary edema is not excluded. Labs Labs: Laboratory Results - last 24 hr 02/02/25 02/02/25 02/02/25 11:20 11:20 11:20 WBC 14.9 H RBC 3.19 L Hgb 7.0 L Hct 24.0 L MCV 75.2 L MCH 21.9 L MCHC 29.2 L RDW 19.0 H Plt Count 281 MPV 9.3 Immature Gran % (Auto) 1.3 H Neut % (Auto) 84.9 H Lymph % (Auto) 3.2 L [place] % (Auto) 10.3 H Eos % (Auto) 0.1 Baso % (Auto) 0.2 Lymph # (Auto) 0.47 L [place] # (Auto) 1.5 H Eos # (Auto) 0.0 Baso # (Auto) 0.0 Abs Immat Gran (auto) 0.19 H Absolute Neuts (auto) 12.7 H Absolute Nucleated RBC 0.040 H Band Neutrophils % Not Reportable Nucleated RBC % 0.3 H Platelet Estimate Adequate Hypochromasia 3+ Anisocytosis 2+ Ovalocytes 1+ Schistocytes None seen Absolute Retic 0.07 Cancelled Percent Retic 2.07 Cancelled Immature Retic Fraction 43.7 H Retic Hgb Content Sodium Potassium Chloride Carbon Dioxide Anion Gap BUN Creatinine Estim Creat Clear Calc Estimated GFR Glucose Calcium Magnesium Iron TIBC % Saturation Ferritin Total Bilirubin AST ALT Alkaline Phosphatase Total Protein Albumin Vitamin B12 Folate U Random Total Protein Ur Random Sodium Urine Creatinine Protein/Creat Ratio 2 Blood Type Antibody Screen Crossmatch 02/02/25 02/02/25 02/02/25 11:20 11:20 11:44 WBC RBC Hgb Hct MCV MCH MCHC RDW Plt Count MPV Immature Gran % (Auto) Neut % (Auto) Lymph % (Auto) [place] % (Auto) Eos % (Auto) Baso % (Auto) Lymph # (Auto) [place] # (Auto) Eos # (Auto) Baso # (Auto) Abs Immat Gran (auto) Absolute Neuts (auto) Absolute Nucleated RBC Band Neutrophils % Nucleated RBC % Platelet Estimate Hypochromasia Anisocytosis Ovalocytes Schistocytes Absolute Retic Percent Retic Immature Retic Fraction Cancelled Retic Hgb Content 19.7 L Cancelled Sodium Potassium Chloride Carbon Dioxide Anion Gap BUN Creatinine Estim Creat Clear Calc Estimated GFR Glucose Calcium Magnesium Iron 15 L TIBC 435 % Saturation 3 L Ferritin 13.20 Total Bilirubin AST ALT Alkaline Phosphatase Total Protein Albumin Vitamin B12 483.0 Folate 15.3 U Random Total Protein 487 Ur Random Sodium 53 Urine Creatinine 55.0 Protein/Creat Ratio 2 8.85 H Blood Type Antibody Screen Crossmatch 02/03/25 02/03/25 04:41 08:13 WBC 14.9 H RBC 3.05 L Hgb 6.8 L* Hct 23.0 L MCV 75.4 L MCH 22.3 L MCHC 29.6 L RDW 19.4 H Plt Count 259 MPV 9.1 Immature Gran % (Auto) 1.3 H Neut % (Auto) 78.4 H Lymph % (Auto) 6.4 L [place] % (Auto) 12.9 H Eos % (Auto) 0.8 Baso % (Auto) 0.2 Lymph # (Auto) 0.96 [place] # (Auto) 1.9 H Eos # (Auto) 0.1 Baso # (Auto) 0.0 Abs Immat Gran (auto) 0.19 H Absolute Neuts (auto) 11.7 H Absolute Nucleated RBC 0.020 H Band Neutrophils % 0 Nucleated RBC % 0.1 Platelet Estimate Adequate Hypochromasia 2+ Anisocytosis 1+ Ovalocytes 1+ Schistocytes None seen Absolute Retic Percent Retic Immature Retic Fraction Retic Hgb Content Sodium 135 L Potassium 4.0 Chloride 105 Carbon Dioxide 16 L Anion Gap 14 H BUN 72 H Creatinine 3.80 H Estim Creat Clear Calc 16 Estimated GFR 15 L Glucose 109 Calcium 8.8 Magnesium 2.2 Iron TIBC % Saturation Ferritin Total Bilirubin 0.7 AST 30 ALT 16 Alkaline Phosphatase 45 Total Protein 6.0 L Albumin 3.8 Vitamin B12 Folate U Random Total Protein Ur Random Sodium Urine Creatinine Protein/Creat Ratio 2 Blood Type O Positive Antibody Screen Negative Crossmatch See Detail
--- NOTE | 2025-02-03 16:37 | PC.NURSE ---
Report called to Diann at [facility]. [facility] has delivered supplies for hospice services to facility. Ambulance scheduled for 1929.
--- NOTE | 2025-02-03 17:09 | P.DS_ITS ---
DS: Admitting Diagnosis Discharge Date 02/03/2025 Admitting Diagnosis JEAN-PIERRE CHF exacerbation GI bleed DS: Discharge Diagnosis Discharge Diagnosis (1) Acute kidney injury superimposed on chronic kidney disease: Code(s): N17.9 - Acute kidney failure, unspecified; N18.9 - Chronic kidney disease, unspecified Status: Acute Assessment and Plan: * Follows up with as OP * Refuse to undergo dialysis * BUN 68 / creatinine 4.20, EGFR 14 * Continue to trend * nephrology consulted * will give 40 of Lasix now (2) CKD (chronic kidney disease), stage IV: Code(s): N18.4 - Chronic kidney disease, stage 4 (severe) Status: Acute Assessment and Plan: see above plan of care (3) Anemia: Code(s): D64.9 - Anemia, unspecified Status: Acute Assessment and Plan: * at [facility] patient was found to have a hemoglobin of 5.2, hematocrit 18.3 and was given 2 units PRBC while in the ED there * hemoglobin now 7.5, hematocrit 25.7 * continue to monitor for any signs of bleeding * check occult blood stool * possible worsening anemia due to his chronic kidney disease * transfuse if below hemoglobin less than 7/ hematocrit less than 21 (4) Essential hypertension: Code(s): I10 - Essential (primary) hypertension Status: Acute Assessment and Plan: * blood pressure ranging 154/87 to 180/81 * will hold losartan due to JEAN-PIERRE * verapamil 240 mg p.o. b.i.d. ordered * hydralazine ordered for systolic blood pressure greater than 180 DS: Summary Hospital Course Hospital Course: 79-year-old male with a significant past medical history of stage 4 chronic kidney disease, iron deficiency anemia, prostate cancer, hypertension, congestive heart failure, former smoker who presented to the hospital as a direct admit from [facility] in [facility]. Patient states that he was at his care home facility and was trying to get up however felt very weak and then he started in with shortness of Breath. They called EMS and transferred him to [facility] in [facility]. Workup at [facility] included labs which shown a hemoglobin of 5.2, hematocrit 18.3, BUN 75, creatinine 4.36, normal lactic acid, troponin 331> 336 which was reviewed by the Cardiology team there and was deemed demand ischemia. Patient was given 2 units PRBC. patient denies any fever, chills, nausea, vomiting, diarrhea, abdominal pain, chest pain. He does report a sore throat and congestion. On examination patient was found to be tachypneic with use of accessory muscles at rest, course lung sounds bilaterally. Workup here at [facility] included a chest x-ray which showed bilateral interstitial thickening suggestive of pneumonitis. Initial labs showed a white blood cell count of 15.3, hemoglobin 7.5, bicarb 12, anion gap 18, BUN 68, creatinine 4.20, EGFR 14, blood sugar 141, hemoglobin A1c 5.3, magnesium was 2.1, troponin 0.373, proBNP 69518, TSH 1.850. Today I had a long conversation with patient along with 2 nurses, Patricia SILVA, and Irena ROWLEY. Patient is AO x3. Explained the benefits of blood transfusion, dialysis. Patient denies receiving dialysis and wanted comfort care. Also discussed about the code status. Patient wants to be DNR. Patient is currently discharged with hospice. Advised would to receive 1 unit PRBC. Patient was started on ceftriaxone and doxycycline for empiric antibiotic coverage due to do leukocytosis. Ordered CT scan of head, chest abdomen and pelvis but due to hospice currently discontinuing all the aggressive management. Status at Discharge Cognitive/behavioral status at discharge: Guarded Time Spent with Patient Time attestation: Total time spent providing and/or coordinating discharge services: 45 minutes Exam Narrative: General: In no acute distress, well nourished Head: atraumatic, no encephalopathy Eyes: PERRLA, sclera clear ENT: moist mucous membranes, nasal passages clear Neck: supple, no JVD, no adenopathy, trachea midline Cardiac: Normal S1 and S2. No murmur, gallops or friction rubs, peripheral pulses intact. Respiratory: Lungs course bilaterally with use of accessory muscles, no adve ntitious lung sounds, currently on room air Gastrointestinal: soft, non-distended, non-tender, normoactive bowel sounds. : voiding without difficulty. Extremities: moves all extremities well, no edema Skin: clean, dry, intact. No wounds or lesions. Neuro: Alert and oriented x4, cranial nerves intact, no neuro deficits. Psych: normal mood, normal affect, interactive DS: Data Data Completed and Pending Labs on day of discharge: Labs from last 24 hours 02/03/25 02/03/25 08:13 04:41 WBC 14.9 H RBC 3.05 L Hgb 6.8 L* Hct 23.0 L MCV 75.4 L MCH 22.3 L MCHC 29.6 L RDW 19.4 H Plt Count 259 MPV 9.1 Immature Gran % (Auto) 1.3 H Neut % (Auto) 78.4 H Lymph % (Auto) 6.4 L [place] % (Auto) 12.9 H Eos % (Auto) 0.8 Baso % (Auto) 0.2 Lymph # (Auto) 0.96 [place] # (Auto) 1.9 H Eos # (Auto) 0.1 Baso # (Auto) 0.0 Abs Immat Gran (auto) 0.19 H Absolute Neuts (auto) 11.7 H Absolute Nucleated RBC 0.020 H Band Neutrophils % 0 Nucleated RBC % 0.1 Platelet Estimate Adequate Hypochromasia 2+ Anisocytosis 1+ Ovalocytes 1+ Schistocytes None seen Sodium 135 L Potassium 4.0 Chloride 105 Carbon Dioxide 16 L Anion Gap 14 H BUN 72 H Creatinine 3.80 H Estim Creat Clear Calc 16 Estimated GFR 15 L Glucose 109 Calcium 8.8 Magnesium 2.2 Total Bilirubin 0.7 AST 30 ALT 16 Alkaline Phosphatase 45 Total Protein 6.0 L Albumin 3.8 Blood Type O Positive Antibody Screen Negative Crossmatch See Detail Discharge Plan Discharge Attending physician on discharge: Jeovanny Her Consulting providers: Surinder Winston; Roula Hunt Discharging Clinician: Jeovanny Her Anticipated Discharge Date/Time: 02/03/25 14:51 Patient Disposition: Hospice - Home Activity: as tolerated Diet: as tolerated Discharge Instructions: Discharged under hospice Medication reconciliation as per hospice Further management as per hospice Patient Language: Frisian Stand Alone Forms: General Discharge Information Discharge Medications: Continued acetaminophen [Tylenol Extra Strength] 500 mg tablet 500 mg PO Q6H PRN (Reason: pain) fluticasone propionate 50 mcg/actuation spray,suspension 1 spray intranasal DAILY Qty: 16 1RF Rx Instructions: administer into each nostril verapamil 240 mg capsule,ext rel. pellets 24 hr 240 mg PO BID Qty: 180 2RF metoprolol succinate 25 mg tablet extended release 24 hr 25 mg PO DAILY Qty: 30 1RF Discontinued losartan 100 mg tablet 100 mg PO DAILY Qty: 90 2RF Date of admission: 02/01/25 17:09 Primary Care Provider: Oscar Abarca Admitting Provider: Joe Ma Attending physician on admission: Joe Ma Condition: Guarded Prognosis
[2025-02-03] MEDS: DOXYCYCLINE HYCLATE 100 MG TABLET PO (20:12)
[2025-02-04] VITALS: BP 174/64; PULSE 72; PULSE 74; RESP 18; TEMP 36.6; O2SAT 100
[2025-02-04] MEDS: hydrALAZINE HCL 20 MG/ML VIAL 10 MG IV PUSH (00:52)
--- NOTE | 2025-02-04 01:11 | PC.NURSE ---
Patient complaining of not being able to urinate, right sided lower back discomfort. Bladder scan read >[address] Bartlett notified. N.O. received to place jacobs cather. Jacobs placed with 1,000ml clear yellow urine return.
[2025-02-04 02:28] VITALS: PULSE 73
--- NOTE | 2025-02-04 02:59 | PC.NURSE ---
Spoke to Dr. Bartlett regarding afib. Patient denies complaints. Hospice waiting to admit patient in the morning. No new orders received.
[2025-02-04 04:00] VITALS: BP 138/77; PULSE 67; PULSE 75; RESP 18; TEMP 36.6; O2SAT 100
[2025-02-04 04:51] LABS: Basophils Percent Auto 0.3 % (0.2-1.2); Eosinophils Absolute Auto 0.3 K/mm3 (0-0.3); Eosinophils Percent Auto 1.8 % (0-4.4); Hematocrit 22.8 % (42.0-52.0); Immature Granulocyte Percent A 1.4 % (0-0.5); Lymphocytes Absolute Auto 1.14 K/mm3 (0.9-3.2); Mean Corpuscular HGB Conc 29.4 g/dl (32-36); Mean Corpuscular Volume 74.8 fl (80-100); Mean Platelet Volume 8.2 fl (7.4-10.4); Monocytes Absolute Auto 1.7 K/mm3 (0.1-0.6); Monocytes Percent Auto 12.2 % (2.6-8.5); Neutrophils Absolute Auto 10.9 K/mm3 (1.3-6.7); Neutrophils Percent Auto 76.3 % (45.5-73.1); Platelet Count Result 255 k/mm3 (150-375); Red Blood Count 3.05 M/mm3 (4.6-6.20); Red Cell Distribution Width 19.6 % (11.5-14.5); White Blood Count 14.3 K/mm3 (4.5-10.0)
[2025-02-04 05:05] LABS: Alanine Aminotransferase 16 U/L (6-50); Albumin Level 3.5 g/dL (3.5-5.1); Alkaline Phosphatase 57 U/L (38-126); Anion Gap 12 mmol/L (4-12); Aspartate Amino Transferase 24 U/L (17-59); Bilirubin,Total 0.4 mg/dL (0.2-1.3); Blood Urea Nitrogen 66 mg/dL (9-20); Calcium 8.6 mg/dL (8.4-10.2); Carbon Dioxide 17 mmol/L (22-30); Chloride 106 mmol/L (98-107); Estimated CRCL calculation 16 ml/min; Estimated Glomerular Filt Rate 15; Glucose 134 mg/dL (65-110); Magnesium 2.1 mg/dL (1.6-2.3); Phosphorus 3.9 mg/dL (2.5-4.5); Potassium 3.3 mmol/L (3.4-5.0); Sodium 135 mmol/L (137-145)
[2025-02-04 05:15] LABS: Hemoglobin 6.7 g/dL (14.0-18.0)
[2025-02-04 05:16] LABS: Platelet Estimate Adequate (Adequate); Schistocytes Rare
[2025-02-04 05:18] LABS: Anisocytosis 2+; Hypochromasia 2+
[2025-02-04 05:20] LABS: Band Neutrophils Percent 0 % (0-6)
[2025-02-04 06:00] VITALS: PULSE 64
[2025-02-04 07:58] VITALS: BP 158/80; PULSE 74; RESP 20; TEMP 36.4; O2SAT 100
[2025-02-04 08:00] VITALS: PULSE 78
[2025-02-04] MEDS: FLUTICASONE PROPIONATE 0.05% NA SPR 16 GM BTL (*BKC) 1 SPRAY NASAL (08:28)
[2025-02-04] MEDS: VERAPAMIL HCL ER 240 MG TABLET.ER PO (08:28)
[2025-02-04] MEDS: DOXYCYCLINE HYCLATE 100 MG TABLET PO (08:28)
[2025-02-04] MEDS: amLODIPine BESYLATE 5 MG TABLET PO (08:28)
[2025-02-04] MEDS: POTASSIUM CHLORIDE 20 MEQ ER TABLET 60 MEQ PO (08:30)
--- NOTE | 2025-02-04 09:04 | PM.IMPN ---
Progress Note: A&P Assessment and Plan (1) Acute kidney injury superimposed on chronic kidney disease: Code(s): N17.9 - Acute kidney failure, unspecified; N18.9 - Chronic kidney disease, unspecified Status: Acute Assessment and Plan: Follows up with as OP Refuse to undergo dialysis BUN 68 / creatinine 4.20, EGFR 14 Continue to trend nephrology consulted will give 40 of Lasix now (2) CKD (chronic kidney disease), stage IV: Code(s): N18.4 - Chronic kidney disease, stage 4 (severe) Status: Acute Assessment and Plan: see above plan of care (3) Anemia: Code(s): D64.9 - Anemia, unspecified Status: Acute Assessment and Plan: at [facility] [place] patient was found to have a hemoglobin of 5.2, hematocrit 18.3 and was given 2 units PRBC while in the ED there hemoglobin now 7.5, hematocrit 25.7 continue to monitor for any signs of bleeding check occult blood stool possible worsening anemia due to his chronic kidney disease transfuse if below hemoglobin less than 7/ hematocrit less than 21 (4) Essential hypertension: Code(s): I10 - Essential (primary) hypertension Status: Acute Assessment and Plan: blood pressure ranging 154/87 to 180/81 will hold losartan due to JEAN-PIERRE verapamil 240 mg p.o. b.i.d. ordered hydralazine ordered for systolic blood pressure greater than 180 Subjective Date/time seen: 02/04/25 09:04 Interval history: HgB is 6.7. Review of Systems Review of Systems: All systems reviewed & are unremarkable except as noted in HPI and below Constitutional: Constitutional: Reports no additional constitutional complaints Eyes: Eyes: Reports no additional eye complaints ENT: Reports system reviewed and no additional complaints, except as documented Cardiovascular: Cardiovascular: Reports no additional cardiovascular complaints Respiratory: Respiratory: Reports no additional respiratory complaints Gastrointestinal: Gastrointestinal: Reports no additional gastrointestinal complaints Genitourinary: Genitourinary: Reports no additional male genitourinary complaints Musculoskeletal: Musculoskeletal: Reports no additional musculoskeletal complaints Integumentary/Breasts: Skin/Breast: Reports system reviewed and no additional complaints, except as docu Neurologic: Reports system reviewed and no additional complaints, except as documented Psychiatric: Psychiatric: Reports no additional psychiatric complaints Endocrine: Endocrine: Reports no additional endocrine complaints Exam Narrative: General: In no acute distress, well nourished Head: atraumatic, no encephalopathy Eyes: PERRLA, sclera clear ENT: moist mucous membranes, nasal passages clear Neck: supple, no JVD, no adenopathy, trachea midline Cardiac: Normal S1 and S2. No murmur, gallops or friction rubs, peripheral pulses intact. Respiratory: Lungs course bilaterally with use of accessory muscles, no adventitious lung sounds, currently on room air Gastrointestinal: soft, non-distended, non-tender, normoactive bowel sounds. : voiding without difficulty. Extremities: moves all extremities well, no edema Skin: clean, dry, intact. No wounds or lesions. Neuro: Alert and oriented x4, cranial nerves intact, no neuro deficits. Psych: normal mood, normal affect, interactive Objective Data Vital Signs Vital Signs: Vital Signs - 24 hr 02/03/25 10:00 02/03/25 12:00 02/03/25 12:00 Temperature 98.2 F Pulse Rate 69 79 76 Respiratory Rate 28 H Blood Pressure 188/99 H Pulse Oximetry 91 Oxygen Delivery 02/03/25 12:00 02/03/25 14:00 02/03/25 16:00 Temperature Pulse Rate 68 Respiratory Rate Blood Pressure Pulse Oximetry Oxygen Delivery Room Air Room Air 02/03/25 16:00 02/03/25 20:00 02/03/25 20:00 Temperature 98.0 F 97.8 F Pulse Rate 77 79 Respiratory Rate 20 18 Blood Pressure 160/88 H 159/70 H Pulse Oximetry 98 100 Oxygen Delivery Room Air 02/03/25 20:00 02/03/25 22:00 02/04/25 00:00 Temperature Pulse Rate 82 77 Respiratory Rate Blood Pressure Pulse Oximetry Oxygen Delivery Room Air 02/04/25 00:00 02/04/25 00:00 02/04/25 02:28 Temperature 97.9 F Pulse Rate 72 74 73 Respiratory Rate 18 Blood Pressure 174/64 H Pulse Oximetry 100 Oxygen Delivery 02/04/25 04:00 02/04/25 04:00 02/04/25 04:00 Temperature 97.9 F Pulse Rate 75 67 Respiratory Rate 18 Blood Pressure 138/77 Pulse Oximetry 100 Oxygen Delivery Room Air 02/04/25 06:00 02/04/25 07:58 Temperature 97.5 F L Pulse Rate 64 74 Respiratory Rate 20 Blood Pressure 158/80 H Pulse Oximetry 100 Oxygen Delivery Intake/Output Intake/Output: Intake & Output 02/01/25 02/02/25 02/03/25 02/04/25 23:59 23:59 23:59 23:59 Intake Total 0 1988 1020 350 Output Total 725 2375 1100 Balance 0 7834 -2773 -031 Meds/Results Medications: Active Medications Generic Name Dose Route Start Last Admin Trade Name Freq PRN Reason Stop Dose Admin Acetaminophen 650 mg 02/01/25 18:21 02/03/25 23:55 Acetaminophen 325 Mg Tablet PO 650 mg Q4H PRN Administration Mild Pain (1-3) or Fever Amlodipine Besylate 5 mg 02/03/25 09:00 02/04/25 08:28 Amlodipine Besylate 5 Mg Tablet PO 5 mg DAILY LIZ Administration Doxycycline Hyclate 100 mg 02/03/25 21:00 02/04/25 08:28 Doxycycline Hyclate 100 Mg Tablet PO 02/10/25 20:59 100 mg Q12HR LIZ Administration Epoetin Juan-epbx 10,000 units 02/02/25 12:00 02/02/25 11:53 Epoetin Juan-Epbx 10,000 Units/Ml Vial SUB-Q 10,000 units MOWEFR@09 LIZ Administration Fluticasone Propionate 1 spray 02/02/25 09:00 02/04/25 08:28 Fluticasone Propionate 0.05% Na Spr 16 Gm Btl (*Bkc) NASAL 1 spray DAILY LIZ Administration Hydralazine HCl 10 mg 02/01/25 21:41 02/04/25 00:52 Hydralazine Hcl 20 Mg/Ml Vial IV PUSH 10 mg Q8H PRN Administration Blood Pressure - High Ceftriaxone Sodium 2 gm in 100 mls @ 200 mls/hr 02/03/25 10:45 02/03/25 12:59 Rocephin 2 Gm/Ns 100 Ml IVPB Not Given DAILY LIZ Ondansetron HCl 4 mg 02/01/25 18:21 Ondansetron Inj 4 Mg/2 Ml Vial IV PUSH Q6H PRN Nausea And Vomiting Perflutren Lipid Microsphere 0 ml 02/01/25 21:34 Perflutren Lipid Microspheres 1.5 Ml Vial Diluted To 10 Ml Total Volume IV PUSH 02/04/25 21:34 ONCE PRN adequate visualization Protocol Verapamil HCl 240 mg 02/01/25 21:45 02/04/25 08:28 Verapamil Hcl Er 240 Mg Tablet.Er PO 240 mg Q12HR LIZ Administration Radiology Results: ITS Impressions Chest X-Ray 02/01/25 18:45 IMPRESSION: Pneumonitis seen bilaterally. Pulmonary edema is not excluded. Labs Labs: Laboratory Results - last 24 hr 02/03/25 02/04/25 08:13 04:42 WBC 14.3 H RBC 3.05 L Hgb 6.7 L* Hct 22.8 L MCV 74.8 L MCH 22.0 L MCHC 29.4 L RDW 19.6 H Plt Count 255 MPV 8.2 Immature Gran % (Auto) 1.4 H Neut % (Auto) 76.3 H Lymph % (Auto) 8.0 L [place] % (Auto) 12.2 H Eos % (Auto) 1.8 Baso % (Auto) 0.3 Lymph # (Auto) 1.14 [place] # (Auto) 1.7 H Eos # (Auto) 0.3 Baso # (Auto) 0.0 Abs Immat Gran (auto) 0.20 H Absolute Neuts (auto) 10.9 H Absolute Nucleated RBC 0.000 Band Neutrophils % 0 Nucleated RBC % 0.0 Platelet Estimate Adequate Hypochromasia 2+ Anisocytosis 2+ Schistocytes Rare Sodium 135 L Potassium 3.3 L Chloride 106 Carbon Dioxide 17 L Anion Gap 12 BUN 66 H Creatinine 3.80 H Estim Creat Clear Calc 16 Estimated GFR 15 L Glucose 134 H Calcium 8.6 Phosphorus 3.9 Magnesium 2.1 Total Bilirubin 0.4 AST 24 ALT 16 Alkaline Phosphatase 57 Total Protein 6.0 L Albumin 3.5 Blood Type O Positive Antibody Screen Negative Crossmatch See Detail Quality VTE Prophylaxis VTE prophylaxis: mechanical ordered
--- NOTE | 2025-02-04 09:21 | PM.PNNEP ---
Progress Note: A&P Assessment and Plan (1) Acute kidney injury superimposed on chronic kidney disease: Code(s): N17.9 - Acute kidney failure, unspecified; N18.9 - Chronic kidney disease, unspecified Status: Acute Assessment and Plan: The patient has chronic kidney disease. This is due to hypertension. His baseline creatinine runs around 3.5 to 3.8 on admission his creatinine jerel to 4.2 urine sodium was 53 today the creatinine is stable at 3.8 he is at baseline. etiology of the acute kidney injury is likely related to his pulmonary status. I do not think he was dehydrated Now he is back to baseline. (2) Anemia: Code(s): D64.9 - Anemia, unspecified Status: Acute Assessment and Plan: His hemoglobin is down to 6.7 today. it looks like he did not receive any blood yesterday according to intake/output T sat is very low at 3% reticulocyte count is mildly low at 2.0 he needs iron but he is on antibiotics so will hold off for now. He is getting Epogen (3) Benign hypertension with chronic kidney disease: Code(s): I12.9 - Hypertensive chronic kidney disease with stage 1 through stage 4 chronic kidney disease, or unspecified chronic kidney disease Status: Acute Assessment and Plan: Blood pressure is a bit high. He was on metoprolol, losartan, and verapamil at home. His pulse is 80. Losartan is on hold. I think we can restart this since his creatinine is back to baseline He is on metoprolol from home will continue the amlodipine at 5 and restart his losartan at 50 so far he is not swelling so we can continue the amlodipine for now Subjective Date/time seen: 02/04/25 09:21 Interval history: patient is feeling better. No shortness of breath no bowel movement yesterday or today so far and no feeling like he has to go Exam Narrative: WDWN in NAD skin no rash or subcu nodules head ncat lungs clear bilateral cor reg no rub abd BS+ nontender and soft ext no edema. Objective Data Vital Signs Vital Signs: Vital Signs - 24 hr 02/03/25 10:00 02/03/25 12:00 02/03/25 12:00 Temperature 98.2 F Pulse Rate 69 79 76 Respiratory Rate 28 H Blood Pressure 188/99 H Pulse Oximetry 91 Oxygen Delivery 02/03/25 12:00 02/03/25 14:00 02/03/25 16:00 Temperature Pulse Rate 68 Respiratory Rate Blood Pressure Pulse Oximetry Oxygen Delivery Room Air Room Air 02/03/25 16:00 02/03/25 20:00 02/03/25 20:00 Temperature 98.0 F 97.8 F Pulse Rate 77 79 Respiratory Rate 20 18 Blood Pressure 160/88 H 159/70 H Pulse Oximetry 98 100 Oxygen Delivery Room Air 02/03/25 20:00 02/03/25 22:00 02/04/25 00:00 Temperature Pulse Rate 82 77 Respiratory Rate Blood Pressure Pulse Oximetry Oxygen Delivery Room Air 02/04/25 00:00 02/04/25 00:00 02/04/25 02:28 Temperature 97.9 F Pulse Rate 72 74 73 Respiratory Rate 18 Blood Pressure 174/64 H Pulse Oximetry 100 Oxygen Delivery 02/04/25 04:00 02/04/25 04:00 02/04/25 04:00 Temperature 97.9 F Pulse Rate 75 67 Respiratory Rate 18 Blood Pressure 138/77 Pulse Oximetry 100 Oxygen Delivery Room Air 02/04/25 06:00 02/04/25 07:58 Temperature 97.5 F L Pulse Rate 64 74 Respiratory Rate 20 Blood Pressure 158/80 H Pulse Oximetry 100 Oxygen Delivery Intake/Output Intake/Output: Intake & Output 02/01/25 02/02/25 02/03/25 02/04/25 23:59 23:59 23:59 23:59 Intake Total 0 1988 1020 350 Output Total 725 2375 1100 Balance 0 4798 -7780 -033 Meds/Results Medications: Active Medications Generic Name Dose Route Start Last Admin Trade Name Alicia PRN Reason Stop Dose Admin Acetaminophen 650 mg 02/01/25 18:21 02/03/25 23:55 Acetaminophen 325 Mg Tablet PO 650 mg Q4H PRN Administration Mild Pain (1-3) or Fever Amlodipine Besylate 5 mg 02/03/25 09:00 02/04/25 08:28 Amlodipine Besylate 5 Mg Tablet PO 5 mg DAILY LIZ Administration Doxycycline Hyclate 100 mg 02/03/25 21:00 02/04/25 08:28 Doxycycline Hyclate 100 Mg Tablet PO 02/10/25 20:59 100 mg Q12HR LIZ Administration Epoetin Juan-epbx 10,000 units 02/02/25 12:00 02/02/25 11:53 Epoetin Juan-Epbx 10,000 Units/Ml Vial SUB-Q 10,000 units MOWEFR@09 LIZ Administration Fluticasone Propionate 1 spray 02/02/25 09:00 02/04/25 08:28 Fluticasone Propionate 0.05% Na Spr 16 Gm Btl (*Bkc) NASAL 1 spray DAILY LIZ Administration Hydralazine HCl 10 mg 02/01/25 21:41 02/04/25 00:52 Hydralazine Hcl 20 Mg/Ml Vial IV PUSH 10 mg Q8H PRN Administration Blood Pressure - High Ceftriaxone Sodium 2 gm in 100 mls @ 200 mls/hr 02/03/25 10:45 02/03/25 12:59 Rocephin 2 Gm/Ns 100 Ml IVPB Not Given DAILY LIZ Ondansetron HCl 4 mg 02/01/25 18:21 Ondansetron Inj 4 Mg/2 Ml Vial IV PUSH Q6H PRN Nausea And Vomiting Perflutren Lipid Microsphere 0 ml 02/01/25 21:34 Perflutren Lipid Microspheres 1.5 Ml Vial Diluted To 10 Ml Total Volume IV PUSH 02/04/25 21:34 ONCE PRN adequate visualization Protocol Verapamil HCl 240 mg 02/01/25 21:45 02/04/25 08:28 Verapamil Hcl Er 240 Mg Tablet.Er PO 240 mg Q12HR LIZ Administration Radiology Results: ITS Impressions Chest X-Ray 02/01/25 18:45 IMPRESSION: Pneumonitis seen bilaterally. Pulmonary edema is not excluded. Labs Labs: Laboratory Results - last 24 hr 02/03/25 02/04/25 08:13 04:42 WBC 14.3 H RBC 3.05 L Hgb 6.7 L* Hct 22.8 L MCV 74.8 L MCH 22.0 L MCHC 29.4 L RDW 19.6 H Plt Count 255 MPV 8.2 Immature Gran % (Auto) 1.4 H Neut % (Auto) 76.3 H Lymph % (Auto) 8.0 L [place] % (Auto) 12.2 H Eos % (Auto) 1.8 Baso % (Auto) 0.3 Lymph # (Auto) 1.14 [place] # (Auto) 1.7 H Eos # (Auto) 0.3 Baso # (Auto) 0.0 Abs Immat Gran (auto) 0.20 H Absolute Neuts (auto) 10.9 H Absolute Nucleated RBC 0.000 Band Neutrophils % 0 Nucleated RBC % 0.0 Platelet Estimate Adequate Hypochromasia 2+ Anisocytosis 2+ Schistocytes Rare Sodium 135 L Potassium 3.3 L Chloride 106 Carbon Dioxide 17 L Anion Gap 12 BUN 66 H Creatinine 3.80 H Estim Creat Clear Calc 16 Estimated GFR 15 L Glucose 134 H Calcium 8.6 Phosphorus 3.9 Magnesium 2.1 Total Bilirubin 0.4 AST 24 ALT 16 Alkaline Phosphatase 57 Total Protein 6.0 L Albumin 3.5 Blood Type O Positive Antibody Screen Negative Crossmatch See Detail
== END 2025-02-04 09:42 | disposition hospice, inpatient (51) | DRG 683 ==
PROVIDERS: Internal Medicine Nephrology; Nurse Practitioner Acute Care; Admitting Provider Hospitalist; PCP Family Medicine; Visit Provider General Practice
DX: N17.9 Acute kidney failure, unspecified (principal); I13.0 Hypertensive heart and chronic kidney disease with heart failure and stage 1 through stage 4 chronic kidney disease, or unspecified chronic kidney disease; I24.89 Other forms of acute ischemic heart disease; I50.9 Heart failure, unspecified; D50.9 Iron deficiency anemia, unspecified; D63.1 Anemia in chronic kidney disease; J98.4 Other disorders of lung; N18.4 Chronic kidney disease, stage 4 (severe); Z66 Do not resuscitate; Z87.891 Personal history of nicotine dependence; Z96.653 Presence of artificial knee joint, bilateral; Z85.46 Personal history of malignant neoplasm of prostate; Z20.822 Contact with and (suspected) exposure to COVID-19
CPT/HCPCS: 36415; 71045; 80053; 81001; 82274; 82570; 82607; 82728; 82746; 83036; 83540; 83550; 83735; 83880; 84100; 84156; 84300; 84443; 84484; 85025; 85046; 86850; 86900; 86901; 86920; 87040; 87637; 93005; 93306; 94640; A9270; J0360; J1940; Q5105